=== PATIENT | female | born 1935 | race Caucasian/White ===

== ENCOUNTER 2022-08-01 08:43 | Outpatient (REF) | payer OTHER, MEDICARE, SELFPAY ==
--- NOTE | ~2022-08-01 | XR_ITS ---
EXAMINATION: Knee x-ray CLINICAL INFORMATION: Pain COMPARISON: None. TECHNIQUE: Standing AP view of both knees and lateral and sunrise view of the left knee FINDINGS: Left knee: Bone alignment is normal. No fracture or dislocation. There is arthritis at the patellofemoral and femoral tibial joints with joint space narrowing and osteophyte formation. There is slight lateral subluxation of patella sunrise view. There is a osteophyte at the quadriceps tendon insertion to the patella. There is a moderate joint effusion. There may be ossified intra-articular loose bodies. Standing AP view of the right knee demonstrate a right knee replacement in satisfactory position. XR/XR knee standing BI IMPRESSION: Left knee: Tricompartment arthritis, moderate joint effusion and question ossified intra-articular loose bodies. Satisfactory appearance of right knee replacement.
--- NOTE | ~2022-08-01 | XR_ITS ---
EXAMINATION: Knee x-ray CLINICAL INFORMATION: Pain COMPARISON: None. TECHNIQUE: Standing AP view of both knees and lateral and sunrise view of the left knee FINDINGS: Left knee: Bone alignment is normal. No fracture or dislocation. There is arthritis at the patellofemoral and femoral tibial joints with joint space narrowing and osteophyte formation. There is slight lateral subluxation of patella sunrise view. There is a osteophyte at the quadriceps tendon insertion to the patella. There is a moderate joint effusion. There may be ossified intra-articular loose bodies. Standing AP view of the right knee demonstrate a right knee replacement in satisfactory position. XR/XR knee LT 2V IMPRESSION: Left knee: Tricompartment arthritis, moderate joint effusion and question ossified intra-articular loose bodies. Satisfactory appearance of right knee replacement.
== END 2022-08-01 08:44 | disposition home or self-care (01) ==
LOC: HO.HOSX 08:43
PROVIDERS: Visit Provider Physician Assistant
DX: M17.12 Unilateral primary osteoarthritis, left knee (principal)
CPT/HCPCS: 73560; 73565

== ENCOUNTER → 2022-09-03 11:27 | Outpatient (BNVA) | payer MEDICARE, OTHER, SELFPAY | PROVIDERS: Visit Provider Orthopaedic Surgery | DX: M17.12 Unilateral primary osteoarthritis, left knee (principal); M25.562 Pain in left knee; M25.561 Pain in right knee | CPT/HCPCS: 99212 ==

== ENCOUNTER 2023-04-03 13:22 | Outpatient (AMB) | payer OTHER, SELFPAY ==
--- NOTE | 2023-04-03 13:23 | MHC.OFFVIS ---
Intake Vital Signs 04/03/23 13:23 Height 5 ft 5 in Weight 180 lb BMI 30.0 Intake Visit Reasons: OV-left knee pain-follow up Intake Note: The patient presents with complaints of intermittent discomfort in both of her knees. She did undergo right total knee replacement surgery in the past. She denies any fevers or chills. She continues to ride the stationary bike at the gym 2 times per week for approximately 30 minutes each time. She does not take any medicines for her discomfort. She would like to hold off on left total knee replacement surgery for as long as possible. Allergies No Known Allergies Allergy (Verified 04/03/23 13:30) Medication List - Last Reviewed 04/03/23 by Estephanie Green CMA diclofenac sodium mg PO PFS Surgical History History of carpal tunnel release History of total right knee replacement Social History Alcohol intake: never Patient Tobacco Use Status: Never used Tobacco Current occupational status: retired Physical Exam Vital Signs: BMI result Body Mass Index 30.0 Const Other: Well-nourished well-developed very friendly female awake alert and oriented x3 in no acute distress Extrem Other: Bilateral lower extremity examination shows good capillary refill, no skin lesions noted, normal sensation light touch Right knee examination shows that the surgical incision is well healed, no erythema, full active extension and flexion to 120 degrees, her patella tracks well Left knee examination shows a minimal effusion, mild crepitus with range of motion, mild discomfort with range of motion, no instability Results Reviewed Results Reviewed: X-rays of the patient's left knee show joint space narrowing, subchondral sclerosis, osteophyte formation, no acute bony abnormalities Assessment & Plan Assessment & Plan (1) Osteoarthritis of left knee: Code(s): M17.12 - Unilateral primary osteoarthritis, left knee Plan Ms. Ji continues to do well after undergoing right total knee replacement surgery. She does have intermittent discomfort in her left knee due to degenerative joint disease. I had a lengthy discussion with the patient regarding the treatment options. At this point the patient's left knee discomfort is tolerable to her. She will continue with her exercise program. She does know to take antibiotics before any dental work. She will contact me prior to her annual follow-up appointment should any questions or concerns arise. Feel free to call me at any time should questions regarding her orthopedic management arise. I spent 22 minutes in reviewing the patient's records and imaging studies, seeing the patient and documenting in the medical record. Coding Level of Care Code Est Pt Level 2 (22852) Diagnoses Osteoarthritis of left knee M17.12
== END 2023-04-03 13:45 | disposition home or self-care (01) ==
PROVIDERS: Visit Provider Orthopaedic Surgery
DX: M17.12 Unilateral primary osteoarthritis, left knee (principal); Z96.651 Presence of right artificial knee joint
CPT/HCPCS: 99213

== ENCOUNTER → 2023-04-03 13:22 | Outpatient (BNVA) | payer OTHER, SELFPAY | PROVIDERS: Visit Provider Orthopaedic Surgery | DX: M17.12 Unilateral primary osteoarthritis, left knee (principal) | CPT/HCPCS: 99212 ==

== ENCOUNTER 2023-07-31 13:19 | Outpatient (AMB) | payer OTHER, SELFPAY ==
--- NOTE | 2023-07-31 13:20 | A.OFFVIS_ITS ---
Vital Signs 07/31/23 13:20 Height 5 ft 5 in Weight 180 lb BMI 30.0 Intake Visit Reasons: OV-left knee pain-follow up Intake Note: Gayle is a 87 year old female who presents for a Left knee follow up. The patient reports mild intermittent discomfort in her left knee. She denies any locking or giving way. She did undergo right total knee replacement surgery several years ago. She reports minimal discomfort in her right knee. She wishes to hold off on left total knee replacement surgery if possible. Allergies No Known Allergies Allergy (Verified 07/31/23 13:23) Medication List - Last Reconciled 08/01/23 by Dhruv Lewis MD diclofenac sodium mg PO [facility] Surgical History History of total right knee replacement History of carpal tunnel release Social History Alcohol intake: never Patient Tobacco Use Status: Never used Tobacco Current occupational status: retired Physical Exam Vital Signs: BMI result Body Mass Index 30.0 Const Other: Well-nourished well-developed very friendly female awake alert and oriented x3 in no acute distress Extrem Other: Bilateral lower extremity examination shows good capillary refill, no skin lesions noted, normal sensation light touch Left knee examination shows a minimal effusion, mild crepitus with range of motion, pain with range of motion, no instability Results Reviewed Results Reviewed: X-rays of the patient's left knee show joint space narrowing, subchondral sclerosis, no acute bony abnormalities Assessment & Plan Assessment & Plan (1) Osteoarthritis of left knee: Code(s): M17.12 - Unilateral primary osteoarthritis, left knee Category: Medical Plan Ms. Ji presents with left knee pain due to degenerative joint disease. I had a lengthy discussion with the patient regarding the treatment options. At this point the patient's symptoms are tolerable to her. We will hold off on an injection. She will continue with her home exercise program. She will follow up with me on an as-needed basis should her symptoms worsen in any way. I spent 18 minutes in reviewing the patient's records and imaging studies, seeing the patient and documenting in the medical record. Coding Level of Care Code Est Pt Level 2 (25280) Diagnoses Osteoarthritis of left knee M17.12
== END 2023-07-31 13:42 | disposition home or self-care (01) ==
PROVIDERS: Visit Provider Orthopaedic Surgery
DX: M17.12 Unilateral primary osteoarthritis, left knee (principal)
CPT/HCPCS: 99212

== ENCOUNTER → 2023-07-31 13:19 | Outpatient (BNVA) | payer OTHER, SELFPAY | PROVIDERS: Visit Provider Orthopaedic Surgery ==

== ENCOUNTER 2023-10-30 10:20 | Outpatient (REF) | payer MEDICARE, SELFPAY ==
--- NOTE | ~2023-10-30 | XR_ITS ---
EXAMINATION: XR KNEE, LEFT CLINICAL INFORMATION: Pain. COMPARISON: 08/01/2022 TECHNIQUE: Three views of the left knee. FINDINGS: Diffuse demineralization. Small joint effusion. Severe patellofemoral and lateral compartment degenerative changes with joint space narrowing and hypertrophic change. Moderate degenerative changes in the medial compartment. Possible intra-articular loose bodies. XR/XR knee LT 3V IMPRESSION: Severe degenerative changes. Electronically signed by: Sujata Umana MD 11/26/2023 01:39 PM EDT
--- NOTE | ~2023-10-30 | XR_ITS ---
EXAMINATION: XR KNEE, RIGHT CLINICAL INFORMATION: Pain COMPARISON: None available. TECHNIQUE: Three views of the right knee. FINDINGS: Status post right knee total arthroplasty. Joint effusion. Hardware appears intact. Bones are diffusely demineralized. XR/XR knee RT 3V IMPRESSION: Status post right total knee arthroplasty. Hardware appears intact. Electronically signed by: Sujata Umana MD 11/26/2023 02:15 PM EDT
== END 2023-10-30 10:21 | disposition home or self-care (01) ==
LOC: HO.HOSX 10:20
PROVIDERS: Visit Provider Orthopaedic Surgery
DX: M17.12 Unilateral primary osteoarthritis, left knee (principal); M25.561 Pain in right knee
CPT/HCPCS: 73562

== ENCOUNTER 2023-10-30 13:27 | Outpatient (AMB) | payer OTHER, SELFPAY ==
--- NOTE | 2023-10-30 13:53 | MHC.OFFVIS ---
Intake Visit Reasons: Bilateral knee pain Intake Note: Gayle is a 88 year old female who presents with complaints of intermittent discomfort in both of her knees. She did undergo right total knee replacement surgery several years ago. She denies any fevers or chills. She has taken Tylenol which gives her mild relief. She has had cortisone injections given into her left knee which gave her fairly good relief. The patient states that her left knee discomfort is tolerable to her at this point. Allergies No Known Allergies Allergy (Verified 10/30/23 13:53) Medication List - Last Reconciled 10/30/23 by Dhruv Lewis MD diclofenac sodium mg PO [facility] Surgical History History of total right knee replacement History of carpal tunnel release Social History Alcohol intake: never Patient Tobacco Use Status: Never used Tobacco Current occupational status: retired Physical Exam Const Other: Well-nourished well-developed very friendly female awake alert and oriented x3 in no acute distress Extrem Other: Right knee examination shows that the surgical incision is well healed, no erythema, full active extension and flexion to 120 degrees, her patella tracks well Left knee examination shows a minimal effusion, palpable crepitus with range of motion, pain with range of motion, no instability Results Reviewed Results Reviewed: X-rays of the patient's right knee taken today show a total knee arthroplasty in good position with no signs of loosening, no acute bony abnormalities X-rays of the patient's left knee taken today show moderate to severe joint space narrowing, subchondral sclerosis, no acute bony abnormalities Assessment & Plan Assessment & Plan (1) Right knee pain: Code(s): M25.561 - Pain in right knee Category: Medical (2) Bilateral knee pain: Code(s): M25.561 - Pain in right knee; M25.562 - Pain in left knee Category: Medical Plan Ms. Ji presents with left knee pain due to degenerative joint disease. At this point the patient's symptoms are tolerable to her. We will hold off on another cortisone injection. The patient does have continued discomfort after undergoing right total knee replacement surgery several years ago. Thus, I will arrange for her to have an evaluation by Dr. Jones here in our pain management department. She will contact me prior to her follow-up appointment in 3 months should her symptoms worsen in any way. Feel free to call me at any time should questions regarding her orthopedic management arise. I spent 21 minutes in reviewing the patient's records and imaging studies, seeing the patient and documenting in the medical record. Orders: Orders XR knee LT 3V Today M17.12 - Unilateral primary osteoarthritis, left knee XR knee RT 3V Today M25.561 - Pain in right knee Referrals Pain Management Referral M25.561 - Pain in right knee Coding Level of Care Code Est Pt Level 3 (81730) Diagnoses Right knee pain M25.561 Bilateral knee pain M25.561; M25.562
== END 2023-10-30 14:08 | disposition home or self-care (01) ==
PROVIDERS: Visit Provider Orthopaedic Surgery
DX: M25.561 Pain in right knee (principal); M25.562 Pain in left knee
CPT/HCPCS: 99213

== ENCOUNTER 2024-02-26 13:05 | Outpatient (AMB) | payer OTHER, SELFPAY ==
--- NOTE | 2024-02-26 13:08 | A.OFFVIS_ITS ---
Vital Signs 02/26/24 13:08 Height 5 ft 5 in Weight 180 lb BMI 30.0 Intake Visit Reasons: OV: left knee OA Intake Note: Gayle is a 88 year old female who presents with complaints of progressively worsening left knee pain. The patient did undergo right total knee replacement surgery several years ago. She denies any pain in her right knee. She describes her left knee pain as sharp and severe in nature, 10/10. Her left knee pain has gotten worse over the last few years in spite of continued non operative treatments. She has tried Tylenol and anti-inflammatory medicines which gave her minimal relief. She has also done physical therapy exercises which aggravated her pain. The patient has difficulty walking even short distances because of her pain. She has had injections in the past. The most recent injection gave her minimal relief. At this point the patient's left knee pain is interfering with her activities of daily living and her ability to sleep well through the night. Allergies No Known Allergies Allergy (Verified 02/26/24 13:09) Medication List - Last Reconciled 02/27/24 by Dhruv Lewis MD diclofenac sodium mg PO [facility] Surgical History History of total right knee replacement History of carpal tunnel release Social History Alcohol intake: never Patient Tobacco Use Status: Never used Tobacco Current occupational status: retired Physical Exam Vital Signs: BMI result Body Mass Index 30.0 Const Other: Well-nourished well-developed very friendly female awake alert and oriented x3 in no acute distress Extrem Other: Bilateral lower extremity examination shows good capillary refill, no skin lesions noted, normal sensation light touch Left knee examination shows a minimal effusion, palpable crepitus with range of motion, pain with range of motion, range of motion from -3 degrees to 115 degrees, no instability Results Reviewed Results Reviewed: X-rays of the patient's left knee taken previously show joint space narrowing, subchondral sclerosis, osteophyte formation, no acute bony abnormalities Assessment & Plan Assessment & Plan (1) Osteoarthritis of left knee: Code(s): M17.12 - Unilateral primary osteoarthritis, left knee Category: Medical Plan Ms. Ji presents with progressively worsening left knee pain due to end-stage degenerative joint disease. I had a lengthy discussion with the patient regarding the treatment options. At this point she has failed continued non operative treatments. The risks and benefits of left total knee replacement surgery were discussed at length with the patient. The patient wishes to proceed with surgery next year. She will contact my office to pick a surgery date. I will see her back prior to her surgery to answer any final questions that she might have. She will call me prior that time should any questions or concerns arise. I spent 22 minutes in reviewing the patient's records and imaging studies, seeing the patient and documenting in the medical record. Coding Level of Care Code Est Pt Level 3 (71164) Complex EM visit Add On G2211 Diagnoses Osteoarthritis of left knee M17.12
--- OUTSIDE RECORDS SUMMARY | 2024-02-26 13:09 | XMS_ITS ---
Author Name [facility] Organization Unknown History of Medication Use Medication Directions Dispensed Refills Start Date End Date Stat Multiple Vitamins-Minerals (PreserVision AREDS) Cap Take 1 capsule by mouth. 11/19/2023 active cyanocobalamin (VITAMIN B-12) 1000 MCG tablet Take 1,000 mcg by mouth. 11/19/2023 active nirmatrelvir-ritonavi r (PAXLOVID) therapy pack Take two 150 mg tablets of nirmatrelvir and one 100 mg tablet of ritonavir twice daily for 5 days. Dispense #20 Nirmatrelvir 150 mg Tablets and #10 Ritonavir 100 mg tablets. 11/19/2023 active diclofenac enteric coated (VOLTAREN) 75 MG EC tablet Take 75 mg by mouth. 11/19/2023 active Sodium Fluoride 5000 Sensitive 1.1-5 % Gel USE AT BEDTIME IN PLACE OR REGULAR PASTE 11/19/2023 active Problems Problem Status Onset Date Problem Type Date of Resoluti on Source Cough, unspecified type active EncounterDiagnosisAct CCT COVID active EncounterDiagnosisAct CCT
--- OUTSIDE RECORDS SUMMARY | 2024-02-26 13:09 | XMS_ITS | Clinical Summary ---
Author Organization Unknown Care Team Providers Care Traffic Incident Management Manager Name Role Phone TONY SANTANA, BUSHRA Unavailable Unavailable RAHEEL OT, THERAPY WHITE WASHER PILER, JUDITH IRWIN RN, DONNY Unavailable Unavailable Payers Payer Name Policy Type Policy Number Effective Date Expira tion Date MEDICARE - [facility] - PDGM [id number] Problems Condition Name Condition Details Condition Category Status Onset Date Resolution Date Last Treatment Date Treating Clinician Comments AFTERCARE FOLLOWING JOINT REPLACEMENT SURGERY Active 2021-03 00:00: 00 LONG-TERM (CURRENT) USE OF ASPIRIN Active 2021-03 00:00: 00 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 Ordering Clinician Indication Dosage Frequency Signature (SIG) Comments Components oxycodone 5 mg tablet 2021-03 00:00: 00 Yes [id number] 1 tablet NEEDED 1 tablet NEEDED (route: oral) Med Classific ation: Analgesic , Anti-infl ammatory or Antipyret ic diclofenac sodium 75 mg tablet,priya yed release 2021-03 00:00: 00 Yes [id number] Per instruc tions EVERY DAY Per instructio ns EVERY DAY (route: oral) Med Classific ation: Analgesic , Anti-infl ammatory or Antipyret ic aspirin 81 mg tablet,priya yed release 2021-03 00:00: 00 Yes [id number] 1 tablet DAILY 1 tablet DAILY (route: oral) Med Classific ation: Hematolog ical Agents Tylenol Extra Strength 500 mg tablet 2021-0308 00:00: 00 Yes [id number] 2 tablet NEEDED 2 tablet NEEDED (route: oral) Med Classific ation: Analgesic , Anti-infl ammatory or Antipyret ic Vital Signs Vital Name Observation Time Observation Value Commen ts Temperature 2022-03-07 09:14:00.000 98.1 [degF] Temperature 2022-03-05 09:36:00.000 97.8 [degF] Temperature 2022-03-01 09:24:00.000 97.6 [degF] Temperature 2022-03-01 09:14:00.000 97.6 [degF] Temperature 2022-02-27 14:08:00.000 97.7 [degF] Temperature 2022-02-26 09:35:00.000 98.7 [degF] Temperature 2022-02-21 10:59:00.000 97.1 [degF] BMI (%) 2022-02-21 10:59:00.000 30 kg/m2 Height 2022-02-21 10:59:00.000 64 [in_us] Pulse 2022-03-07 09:14:00.000 70 /min Pulse 2022-03-05 09:36:00.000 86 /min Pulse 2022-03-01 09:24:00.000 76 /min Pulse 2022-03-01 09:14:00.000 76 /min Pulse 2022-02-27 14:08:00.000 80 /min Pulse 2022-02-26 09:35:00.000 74 /min Pulse 2022-02-21 10:59:00.000 72 /min O2 Saturation (%) 2022-03-07 09:14:00.000 98 % O2 Saturation (%) 2022-03-01 09:14:00.000 97 % O2 Saturation (%) 2022-02-27 14:08:00.000 97 % O2 Saturation (%) 2022-02-21 10:59:00.000 99 % Respirations 2022-03-07 09:14:00.000 18 /min Respirations 2022-03-05 09:36:00.000 18 /min Respirations 2022-03-01 09:24:00.000 18 /min Respirations 2022-03-01 09:14:00.000 18 /min Respirations 2022-02-27 14:08:00.000 18 /min Respirations 2022-02-26 09:35:00.000 18 /min Respirations 2022-02-21 10:59:00.000 18 /min Weight (lbs) 2022-02-21 10:59:00.000 175 [lb_av] Systolic Blood Pressure 2022-03-07 09:14:00.000 132 mm [Hg] Systolic Blood Pressure 2022-03-05 09:36:00.000 131 mm [Hg] Systolic Blood Pressure 2022-03-01 09:24:00.000 120 mm [Hg] Systolic Blood Pressure 2022-03-01 09:14:00.000 124 mm [Hg] Systolic Blood Pressure 2022-02-27 14:08:00.000 122 mm [Hg] Systolic Blood Pressure 2022-02-26 09:35:00.000 129 mm [Hg] Systolic Blood Pressure 2022-02-21 10:59:00.000 132 mm [Hg] Diastolic Blood Pressure 2022-03-07 09:14:00.000 74 mm [Hg] Diastolic Blood Pressure 2022-03-05 09:36:00.000 75 mm [Hg] Diastolic Blood Pressure 2022-03-01 09:24:00.000 68 mm [Hg] Diastolic Blood Pressure 2022-03-01 09:14:00.000 68 mm [Hg] Diastolic Blood Pressure 2022-02-27 14:08:00.000 68 mm [Hg] Diastolic Blood Pressure 2022-02-26 09:35:00.000 70 mm [Hg] Diastolic Blood Pressure 2022-02-21 10:59:00.000 78 mm [Hg] Plan of Treatment Planned Activity Planned Date Details Comments Future Scheduled Test SKILLED NU RSE TO EVALUATE PATIENT, IDENTIFY PRIMARY AND CO-MORBID CONDITIONS CODED PER CODING GUIDELINES, AND DEVELOP PATIENT SPECIFIC PLAN OF CARE THAT INCLUDES PATIENT GOAL FOR HOME HEALTH. CLINICAL SUMMARY (SOC/PARAG/RECERT, 10 DAY, 60 DAY) THE PATIENT IS RECEIVING HOMECARE DUE TO REFERRAL FROM [facility] RECENT HOSPITALIZATION/INPATIENT ADMISSION RELATED TO: LEFT SHOULDER REPLACEMENT NEW OR CHANGED MEDICATIONS: NEW- ASPIRIN PATIENT LIVING SITUATION/CAREGIVER STATUS: LIVES WITH SUPPORTIVE , WHO IS PCG RECENT FALLS: NONE SUMMARIZE SKILLED NEED: SN FOR CVP ASSESSMENT, SKIN INTEGRITY, WOUND CARE, MEDICATION EDUCATION ADDITIONAL DISCIPLINES NEEDED OR DECLINED ORDERED SERVICES: OCCUPATIONAL THERAPY FOR UPPER BODY STRENGTHENING AND HOME SAFETY [code = SKILLED NURSE TO EVALUATE PATIENT, IDENTIFY PRIMARY AND CO-MORBID CONDITIONS CODED PER CODING GUIDELINES, AND DEVELOP PATIENT SPECIFIC PLAN OF CARE THAT INCLUDES PATIENT GOAL FOR HOME HEALTH. CLINICAL SUMMARY (SOC/PARAG/RECERT, 10 DAY, 60 DAY) THE PATIENT IS RECEIVING HOMECARE DUE TO REFERRAL FROM [facility] RECENT HOSPITALIZATION/INPATIENT ADMISSION RELATED TO: LEFT SHOULDER REPLACEMENT NEW OR CHANGED MEDICATIONS: NEW- ASPIRIN PATIENT LIVING SITUATION/CAREGIVER STATUS: LIVES WITH SUPPORTIVE , WHO IS PCG RECENT FALLS: NONE SUMMARIZE SKILLED NEED: SN FOR CVP ASSESSMENT, SKIN INTEGRITY, WOUND CARE, MEDICATION EDUCATION ADDITIONAL DISCIPLINES NEEDED OR DECLINED ORDERED SERVICES: OCCUPATIONAL THERAPY FOR UPPER BODY STRENGTHENING AND HOME SAFETY ] Future Scheduled Test SKILLED NU RSE TO REVIEW PATIENT MEDICATIONS. INSTRUCT PATIENT/CAREGIVER ON MONITORING OF EFFECTIVENESS, ADVERSE DRUG REACTIONS, SIDE EFFECTS OF ALL MEDICATIONS (PRESCRIPTION/-OTC), AND HOW AND WHEN TO REPORT PROBLEMS. [code = SKILLED NURSE TO REVIEW PATIENT MEDICATIONS. INSTRUCT PATIENT/CAREGIVER ON MONITORING OF EFFECTIVENESS, ADVERSE DRUG REACTIONS, SIDE EFFECTS OF ALL MEDICATIONS (PRESCRIPTION/-OTC), AND HOW AND WHEN TO REPORT PROBLEMS.] Future Scheduled Test SKILLED NU RSE TO PERFORM HOME SAFETY AND FALL ASSESSMENT AND PROVIDE INSTRUCTION TO IMPLEMENT HOME SAFETY AND FALL PREVENTION STRATEGIES. [code = SKILLED NURSE TO PERFORM HOME SAFETY AND FALL ASSESSMENT AND PROVIDE INSTRUCTION TO IMPLEMENT HOME SAFETY AND FALL PREVENTION STRATEGIES.] Future Scheduled Test SKILLED NU RSE FOR INSTRUCTION/ REINFORCEMENT OF NEEDS RELATED TO NUTRITION/HYDRATION. [code = SKILLED NURSE FOR INSTRUCTION/ REINFORCEMENT OF NEEDS RELATED TO NUTRITION/HYDRATION. ] Future Scheduled Test SKILLED NU RSE TO INSTRUCT PATIENT/CAREGIVER ON AFTERCARE FOLLOWING LEFT SHOULDER JOINT REPLACEMENT, INCLUDING PRECAUTIONS, SIGNS AND SYMPTOMS OF POST-OP COMPLICATIONS, PAIN MANAGEMENT TECHNIQUES, AND INCISION SITE CARE. [code = SKILLED NURSE TO INSTRUCT PATIENT/CAREGIVER ON AFTERCARE FOLLOWING LEFT SHOULDER JOINT REPLACEMENT, INCLUDING PRECAUTIONS, SIGNS AND SYMPTOMS OF POST-OP COMPLICATIONS, PAIN MANAGEMENT TECHNIQUES, AND INCISION SITE CARE.] Future Scheduled Test PATIENT TRONCOSO S A RISK OF REHOSPITALIZATION. SKILLED NURSE TO ESTABLISH SUPPORT MEASURES TO MINIMIZE RISK OF REHOSPITALIZATION, AND INSTRUCT PATIENT/CAREGIVER ON METHODS TO REDUCE AVOIDABLE HOSPITALIZATION. [code = PATIENT HAS A RISK OF REHOSPITALIZATION. SKILLED NURSE TO ESTABLISH SUPPORT MEASURES TO MINIMIZE RISK OF REHOSPITALIZATION, AND INSTRUCT PATIENT/CAREGIVER ON METHODS TO REDUCE AVOIDABLE HOSPITALIZATION.] Future Scheduled Test SKILLED NU RSE TO PROVIDE INSTRUCTION TO PATIENT/CAREGIVER RELATED TO DISCHARGE PLANNING. [code = SKILLED NURSE TO PROVIDE INSTRUCTION TO PATIENT/CAREGIVER RELATED TO DISCHARGE PLANNING.] Future Scheduled Test SKILLED NU RSE FOR OBSERVATION AND ASSESSMENT OF PATIENTS PAIN LEVEL AND EFFECTIVENESS OF PAIN MANAGEMENT REGIMEN. SKILLED NURSE TO INSTRUCT PATIENT/CAREGIVER REGARDING PHARMACOLOGIC AND NON-PHARMACOLOGIC PAIN CONTROL MEASURES. SKILLED NURSE TO REPORT TO PHYSICIAN IF PAIN IS UNCONTROLLED WITH CURRENT PAIN MANAGEMENT REGIMEN. [code = SKILLED NURSE FOR OBSERVATION AND ASSESSMENT OF PATIENTS PAIN LEVEL AND EFFECTIVENESS OF PAIN MANAGEMENT REGIMEN. SKILLED NURSE TO INSTRUCT PATIENT/CAREGIVER REGARDING PHARMACOLOGIC AND NON-PHARMACOLOGIC PAIN CONTROL MEASURES. SKILLED NURSE TO REPORT TO PHYSICIAN IF PAIN IS UNCONTROLLED WITH CURRENT PAIN MANAGEMENT REGIMEN.] Future Scheduled Test OCCUPATION AL THERAPIST TO EVALUATE PATIENT FOR UPPER BODY STRENGTHENING AND HOME SAFETY. [code = OCCUPATIONAL THERAPIST TO EVALUATE PATIENT FOR UPPER BODY STRENGTHENING AND HOME SAFETY. ] Future Scheduled Test SKILLED NU RSE FOR O/A RELATED TO SIGNS AND SYMPTOMS OF INFECTION AND TO PROVIDE TEACHING REGARDING INFECTION CONTROL MEASURES. [code = SKILLED NURSE FOR O/A RELATED TO SIGNS AND SYMPTOMS OF INFECTION AND TO PROVIDE TEACHING REGARDING INFECTION CONTROL MEASURES.] Future Scheduled Test NEED FOR S KILLED TEACHING AND INTERVENTION RELATED TO SURGICAL INCISION TO LEFT SHOULDER. REMOVE DRESSING 7 DAYS FOLLOWING SURGICAL PROCEDURE (DUE 02/26) AND KEEP OXIDIZED FINISH PLATER. SN TO ASSESS SITE AT EACH VISIT AND REPORT TO MD WITH ANY S/S OF INFECTION. DISCONTINUE WOUND CARE ONCE WOUND IS HEALED. [code = NEED FOR SKILLED TEACHING AND INTERVENTION RELATED TO SURGICAL INCISION TO LEFT SHOULDER. REMOVE DRESSING 7 DAYS FOLLOWING SURGICAL PROCEDURE (DUE 02/26) AND KEEP TA. SN TO ASSESS SITE AT EACH VISIT AND REPORT TO MD WITH ANY S/S OF INFECTION. DISCONTINUE WOUND CARE ONCE WOUND IS HEALED.] Future Scheduled Test SKILLED NU RSE FOR O/A OF SELF-CARE DEFICITS AND TO PROVIDE TEACHING RELATED TO SAFE PROVISION OF ADLS. [code = SKILLED NURSE FOR O/A OF SELF-CARE DEFICITS AND TO PROVIDE TEACHING RELATED TO SAFE PROVISION OF ADLS.] Future Scheduled Test SKILLED NU RSE FOR O/A OF MUSCULOSKELETAL STATUS AND TEACHING ON MEASURES TO MANAGE OSTEOARTHRITIS AND TO MAINTAIN SAFETY WITH ACTIVITY [code = SKILLED NURSE FOR O/A OF MUSCULOSKELETAL STATUS AND TEACHING ON MEASURES TO MANAGE OSTEOARTHRITIS AND TO MAINTAIN SAFETY WITH ACTIVITY ] Future Scheduled Test SKILLED NU RSE TO ASSESS PATIENT'S SKIN INTEGRITY AND INSTRUCT PATIENT/CAREGIVER ON MEASURES TO PREVENT PRESSURE ULCERS [code = SKILLED NURSE TO ASSESS PATIENT'S SKIN INTEGRITY AND INSTRUCT PATIENT/CAREGIVER ON MEASURES TO PREVENT PRESSURE ULCERS] Future Scheduled Test SKILLED NU RSE FOR O/A AND SKILLED TEACHING RELATED TO SIGNS AND SYMPTOMS AND MANAGEMENT OF REVERSE LEFT SHOULDER REPLACEMENT [code = SKILLED NURSE FOR O/A AND SKILLED TEACHING RELATED TO SIGNS AND SYMPTOMS AND MANAGEMENT OF REVERSE LEFT SHOULDER REPLACEMENT] Future Scheduled Test OCCUPATION AL THERAPIST TO EVALUATE PATIENT SECONDARY TO FUNCTIONAL DEFICITS/SAFETY CONCERNS IDENTIFIED DURING EVALUATION OCCUPATIONAL THERAPY TO ESTABLISH THERAPEUTIC EXERCISE PROGRAM AND INSTRUCT PATIENT/CAREGIVER ON EXERCISE PRECAUTIONS WITH WRITTEN HOME PROGRAM. MAY INCLUDE PROM, AAROM, AROM APPROPRIATE TO IMPROVE POST OP OUTCOMES. OCCUPATIONAL THERAPY TO ASSESS AND RECOMMEND HOME SAFETY ADAPTATIONS AND EDUCATE PATIENT /CAREGIVER ON FALL PREVENTION STRATEGIES TO ENHANCE PARTICIPATION IN ADLS. OCCUPATIONAL THERAPY TO RECOMMEND ORTHOTICS/SPLINTING FOR PAIN RELIEF, MAINTAINING JOINT ALIGNMENT, PROTECTION OF JOINT INTEGRITY, AND IMPROVED FUNCTION. OCCUPATIONAL THERAPY TO PROVIDE PATIENT/CAREGIVER WITH INSTRUCTIONS AND RECOMMENDATIONS TO IMPROVE ADLS INCLUDING BATHING AND DRESSING WHILE USING APPROPRIATE ADAPTIVE DEVICES RECOMMENDED. SUMMARY OF THERAPY EVAL/ASSESSMENT FINDINGS AND REASON(S) SKILLS OF A THERAPIST ARE INDICATED: PT TO BENEFIT FROM SKILLED OT SERVICES TO TRAIN PT ON POST OP HEP PROTOCOL PER MD RECOMMENDATION, ADL TRAINING, FALL PREVENTION, AND TRAINING ON WEAR SCHEDULE AND APPLICATION OF POST OP ABDUCTOR SLING TO MAINTAIN PROPER POSITIONING AND TO CONTROL PAIN. [code = OCCUPATIONAL THERAPIST TO EVALUATE PATIENT SECONDARY TO FUNCTIONAL DEFICITS/SAFETY CONCERNS IDENTIFIED DURING EVALUATION OCCUPATIONAL THERAPY TO ESTABLISH THERAPEUTIC EXERCISE PROGRAM AND INSTRUCT PATIENT/CAREGIVER ON EXERCISE PRECAUTIONS WITH WRITTEN HOME PROGRAM. MAY INCLUDE PROM, AAROM, AROM APPROPRIATE TO IMPROVE POST OP OUTCOMES. OCCUPATIONAL THERAPY TO ASSESS AND RECOMMEND HOME SAFETY ADAPTATIONS AND EDUCATE PATIENT /CAREGIVER ON FALL PREVENTION STRATEGIES TO ENHANCE PARTICIPATION IN ADLS. OCCUPATIONAL THERAPY TO RECOMMEND ORTHOTICS/SPLINTING FOR PAIN RELIEF, MAINTAINING JOINT ALIGNMENT, PROTECTION OF JOINT INTEGRITY, AND IMPROVED FUNCTION. OCCUPATIONAL THERAPY TO PROVIDE PATIENT/CAREGIVER WITH INSTRUCTIONS AND RECOMMENDATIONS TO IMPROVE ADLS INCLUDING BATHING AND DRESSING WHILE USING APPROPRIATE ADAPTIVE DEVICES RECOMMENDED. SUMMARY OF THERAPY EVAL/ASSESSMENT FINDINGS AND REASON(S) SKILLS OF A THERAPIST ARE INDICATED: PT TO BENEFIT FROM SKILLED OT SERVICES TO TRAIN PT ON POST OP HEP PROTOCOL PER MD RECOMMENDATION, ADL TRAINING, FALL PREVENTION, AND TRAINING ON WEAR SCHEDULE AND APPLICATION OF POST OP ABDUCTOR SLING TO MAINTAIN PROPER POSITIONING AND TO CONTROL PAIN. ] Goal 2022-03-07 Patient Goal - REMAIN FREE F ROM INFECTION Goal Provider Goal - A PLAN OF CARE WILL BE ESTABLISHED THAT MEETS PATIENT'S FDC NEEDS AND INCLUDES PATIENT GOAL FOR HOME HEALTH. Goal Provider Goal - PATIENT/CAREGIVER WILL VERBALIZE UNDERSTANDING OF EDUCATION PROVIDED ON MEDICATIONS BY THE END OF THE CERTIFICATION PERIOD. Goal Provider Goal - PATIENT/CAREGIVER WILL VERBALIZE/DEMONSTRATE EFFECTIVE HOME SAFETY AND FALL PREVENTION STRATEGIES THROUGHOUT CERTIFICATION PERIOD. Goal Provider Goal - PATIENT/CAREGIVER WILL DEMONSTRATE ABILITY TO SELF MANAGE NEEDS RELATED TO NUTRITION/HYDRATION BY 04/21/22. Goal Provider Goal - PATIENT/CAREGIVER WILL VERBALIZE/DEMONSTRATE MANAGEMENT OF AFTERCARE FOLLOWING JOINT REPLACEMENT INCLUDING SIGNS AND SYMPTOMS TO REPORT AND METHODS TO PREVENT POST-OP COMPLICATIONS BY END OF CERTIFICATION PERIOD. Goal Provider Goal - PATIENT WILL HAVE SUPPORT MEASURES ESTABLISHED TO PREVENT REHOSPITALIZATION AND PATIENT/CAREGIVER WILL VERBALIZE/DEMONSTRATE METHODS TO REDUCE AVOIDABLE HOSPITALIZATION BY 04/21/22 Goal Provider Goal - PATIENT/CAREGIVER WILL VERBALIZE UNDERSTANDING OF DISCHARGE PLANNING INSTRUCTIONS BY DATE OF DISCHARGE. Goal Provider Goal - PATIENT/CAREGIVER WILL DEMONSTRATE UNDERSTANDING OF PHARMACOLOGIC AND NONPHARMACOLOGIC PAIN CONTROL MEASURES AND PATIENT WILL HAVE IMPROVEMENT IN PAIN INTERFERING WITH ACTIVITY EVIDENCED BY PAIN CONTROLLED AT LEVEL OF PATIENT GOAL ON 7/10 PAIN SCALE OR LESS BY END OF CERTIFICATION PERIOD. Goal Provider Goal - OCCUPATIONAL THERAPY EVALUATION TO BE COMPLETED WITH RECOMMENDATIONS AND WRITTEN PLAN OF TREATMENT ESTABLISHED FOR THE PHYSICIANS SIGNATURE. Goal Provider Goal - PATIENT/CAREGIVER WILL VERBALIZE/DEMONSTRATE INFECTION CONTROL MEASURES AND SIGNS AND SYMPTOMS OF INFECTION WILL BE IDENTIFIED AND PHYSICIAN NOTIFIED FOR PROMPT INTERVENTION THROUGHOUT THE CERTIFICATION PERIOD. Goal Provider Goal - WOUND CARE WILL BE COMPLETED AND PATIENT WILL HAVE IMPROVED WOUND STATUS EVIDENCED BY NO SIGNS AND SYMPTOMS OF INFECTION, DECREASED WOUND SIZE, AND/OR NO COMPLICATIONS BY THE END OF THE CERTIFICATION PERIOD. Goal Provider Goal - PATIENT/CAREGIVER WILL VERBALIZE/DEMONSTRATE UNDERSTANDING OF SAFE PROVISION OF ADLS BY THE END OF THE CERTIFICATION PERIOD. Goal Provider Goal - PATIENT/CAREGIVER WILL VERBALIZE/DEMONSTRATE ABILITY TO MANAGE MUSCULOSKELETAL DISEASE WHILE MAINTAINING SAFETY BY 04/21/22. Goal Provider Goal - PATIENT/CAREGIVER WILL VERBALIZE UNDERSTANDING OF PRESSURE ULCER PREVENTION BY 04/21/22 Goal Provider Goal - PATIENT/CAREGIVER WILL VERBALIZE UNDERSTANDING OF MUSCULOSKELETAL DISEASE INCLUDING SIGNS AND SYMPTOMS, MANAGEMENT, AND PRESCRIBED TREATMENT REGIMEN BY END OF EPISODE. Goal Provider Goal - OCCUPATIONAL THERAPIST TO EVALUATE PATIENT SECONDARY TO FUNCTIONAL DEFICITS/SAFETY CONCERNS IDENTIFIED DURING EVALUATION. PATIENT/CAREGIVER WILL PERFORM THERAPEUTIC EXERCISES AND DEMONSTRATE PARTICIPATION IN A HOME PROGRAM ACCORDING TO POST OP PROTOCOL IN ORDER TO DECREASE PAIN AND PREVENT FROZEN SHOULDER. CAREGIVER/PATIENT WILL DEMONSTRATE/VERBALIZE UNDERSTANDING OF RECOMMENDATIONS TO INCREASE SAFETY IN THE HOME AND FALL PREVENTION IN ORDER TO PREVENT INJURY AND REHOSPITALIZATION. PATIENT/CAREGIVER WILL DEMONSTRATE PROPER APPLICATION AND WEARING OF ORTHOTICS/SPLINT TO IMPROVE PAIN MANAGEMENT AND JOINT SUPPORT POST OPERATIVELY. PATIENT/CAREGIVER WILL DEMONSTRATE IMPROVED ABILITY TO PERFORM ACTIVITIES OF DAILY LIVING TO IMPROVE ADL STATUS EVIDENCED BY INCREASED SCORE ON MERNA INDEX. Reason for Visit MINIMUM ASSIST WITH TRANSFER/AMBULATION/ADLS Encounters Start Date/Time End Date/Time Encounter Type Admission Type Attending [facility] Care Department Encounter ID Discharge Date Discharge Status Discharge Condition Discharge Reason Percent Goals Met 2022-02-21 00:00:00 2022-03-07 00:00:00 Outpatient NEW ADMISSION DONNY IRWIN [facility] [id number] 00:00:00 DISCHARGE TO HOME OR SELF CARE MINIMUM ASSIST WITH TRANSFER/A MBULATION/ ADLS GOALS MET ( ONLY) 51.85
== END 2024-02-26 13:26 | disposition home or self-care (01) ==
PROVIDERS: Visit Provider Orthopaedic Surgery
DX: M17.12 Unilateral primary osteoarthritis, left knee (principal)
CPT/HCPCS: 99213; G2211

== ENCOUNTER → 2024-02-26 13:05 | Outpatient (BNVA) | payer OTHER, SELFPAY | PROVIDERS: Visit Provider Orthopaedic Surgery ==

== ENCOUNTER → 2024-06-07 08:52 | Outpatient (BNVA) | payer OTHER, SELFPAY | PROVIDERS: PCP Family Medicine | DX: Z01.818 Encounter for other preprocedural examination (principal) ==

== ENCOUNTER 2024-07-07 09:40 | Outpatient (AMB) | payer OTHER, SELFPAY ==
--- NOTE | 2024-07-07 09:54 | MHC.OFFVIS ---
Vital Signs 07/07/24 09:57 Height 5 ft 5 in Weight 180 lb BMI 30.0 Intake Visit Reasons: Left knee pain Intake Note: Gayle is an 88 year old female who presents with complaints of progressively worsening left knee pain. The patient did undergo right total knee replacement surgery several years ago. She denies any pain in her right knee. She did go to inpatient rehabilitation following her right total knee replacement surgery and did well. She describes her left knee pain as sharp and severe in nature. Her left knee pain has gotten worse over the last few years in spite of continued non operative treatments. She has done physical therapy exercises which aggravated her pain. She has also tried Tylenol, anti-inflammatory medicines and topical gels which gave her minimal relief. She has had multiple injections. The most recent injection gave her no relief. At this point her left knee pain is interfering with her activities of daily living and her ability to sleep well through the night. The patient has difficulty walking even short distances because of her pain. She does walk with a cane. Allergies No Known Allergies Allergy (Verified 07/07/24 09:59) Medication List - Last Reconciled 07/07/24 by Dhruv Lewis MD acetaminophen 1,000 mg PO QID PRN amoxicillin 1,000 mg PO ONCE calcium carbonate-vitamin D3 600 mg-5 mcg (200 unit) 1 tab PO BID walker Folding front wheeled walker [facility] Medical History History of MRSA infection Heartburn Pre-diabetes Osteopenia Nonexudative age-related macular degeneration DJD (degenerative joint disease) Female bladder prolapse Arthritis Surgical History Hx of eye surgery Hx of tonsillectomy Hx of left cataract extraction History of esophagogastroduodenoscopy (EGD) H/O colonoscopy Hx of breast biopsy Hx of shoulder surgery History of total right knee replacement History of carpal tunnel release Social History Are you a primary caregivers homecare to a significant other at home: No Do you presently have visiting nurse or other home services: No Alcohol intake: never Comment: advised of trip hazard Patient Tobacco Use Status: Former Tobacco user Tobacco use type: Cigarette Years Smoked: 10 Current occupational status: retired Physical Exam Vital Signs: BMI result Body Mass Index 30.0 Const Other: Well-nourished well-developed very friendly female awake alert and oriented x3 in no acute distress Extrem Other: Bilateral lower extremity examination shows good capillary refill, no skin lesions noted, normal sensation light touch Left knee examination shows a minimal effusion, palpable crepitus with range of motion, pain with range of motion, range of motion from -3 degrees to 115 degrees, no instability Results Reviewed Results Reviewed: X-rays of the patient's left knee show end-stage degenerative joint disease with grade 4 [id number]-wu-[id number] arthritis, subchondral sclerosis, osteophyte formation, no acute bony abnormalities Assessment & Plan Assessment & Plan (1) Left knee pain: Code(s): M25.562 - Pain in left knee (2) Osteoarthritis of left knee: Code(s): M17.12 - Unilateral primary osteoarthritis, left knee Category: Medical Plan Ms. Ji presents with progressively worsening left knee pain due to end-stage degenerative joint disease. I had a lengthy discussion with the patient regarding the treatment options. At this point she has failed continued non operative treatments. The risks and benefits of left total knee replacement surgery were discussed at length with the patient. The patient wishes to proceed with surgery. dining services director will be consulted following her surgery for inpatient rehabilitation at the [facility]. The patient did go to inpatient rehabilitation following her right total knee replacement surgery several years ago and did quite well. I do feel that the patient will benefit from going to inpatient rehabilitation once again because of her age and medical comorbidities such as macular degeneration. The patient will follow up as instructed. Feel free to call me at any time should questions regarding her orthopedic management arise. I spent 22 minutes in reviewing the patient's records and imaging studies, seeing the patient and documenting in the medical record. Coding Level of Care Code Est Pt Level 3 (94860) Complex EM visit Add On G2211 Diagnoses Left knee pain M25.562 Osteoarthritis of left knee M17.12
--- OUTSIDE RECORDS SUMMARY | 2024-07-07 10:52 | XMS_ITS | Clinical Summary ---
Author Organization [facility] Address [address] [place] [address] Care Team Providers Care Chief Science Officer Name Role Phone Osman Wilkinson MD Primary Care Provider [phone]- [phone] Allergies Active Allergy Reactions Criticality Noted Date [...] age to complete this topic Care Teams Chief Science Officer Relationship Specialty Start Date End Date Osman Wilkinson MD [address] [address] PCP - General Internal Medicine 4/7/22
--- OUTSIDE RECORDS SUMMARY | 2024-07-07 10:52 | XMS_ITS | Clinical Summary ---
Author Organization [facility] Address [address] [place] [address] Care Team Providers Care Health And Human Performance Professor Name Role Phone Osman Wilkinson MD Primary Care Provider [phone] Allergies No known active allergies Medications diclofenac enteric coated (VOLTAREN) 75 MG EC tablet Take 75 mg by mouth. Active cyanocobalamin (VITAMIN B-12) 1000 MCG tablet Take 1,000 mcg by mouth. Active Multiple Vitamins-Minera ls (PreserVision AREDS) Cap Take 1 capsule by [...] patient's age to complete this topic Insurance MEDICARE PART A & B MEDICARE PART A & B AETNA MGD MEDICARE Care Teams Health And Human Performance Professor Relationship Specialty Start Date End Date Osman Wilkinson MD [address] [place] [id number] PCP - General 07/07/20
--- OUTSIDE RECORDS SUMMARY | 2024-07-07 10:52 | XMS_ITS | Clinical Summary ---
Author Organization [facility] Address [address] [place] [address] Care Team Providers Care Metal Sprayer Production Name Role Phone Osman Wilkinson Primary Care Provider [phone] Allergies Active Allergy Reactions Criticality Noted Date Comments Pollen Extracts Unknown Low 11/01/2019 Medications bromfenac (XIBROM) 0.09 % ophthalmic solution 07/10/2018 Active prednisoLONE acetate (PRED FORTE) 1% ophthalmic suspension 07/10/2018 Active vitamins A,C,E-zinc-leana er [id number] pffv-ul-dpye capsule Take 1 capsule by mouth. Active [...] Info) Description 08/25/2024 1:15 PM EDT Follow-Up [facility] [address] [address] Dunia Walls MD [address] [place], [place] [id number] Health Maintenance Due Date Last Done Comments DTaP,Tdap,and Td Vaccines (1 - Tdap) 09/25/1957 Osteoporosis Screening 09/25/1985 Pneumococcal Vaccine: 50+ Years (1 of 1 - PCV) 09/25/1985 Zoster Vaccines (1 of 2) 09/25/1985 RSV Vaccine (60+ years old and patients) (1 - 1-dose 75+ series) 09/25/2010 COVID-19 Vaccine ( season) 2023 12/23/2022, 07/16/2021, 01/16/2021, Additional history exists Alcohol/Substance Use Screening 03/17/2024 Depression Screening and Follow-Up 03/17/2024 Health Care Proxy Review 03/17/2024 Social Drivers of Health Annual Screening 03/17/2024 Influenza Vaccine (Season Ended) 2024 12/23/2022, 02/03/2021, 02/23/2019 Hepatitis B Vaccines Aged Out No long er eligible based on patient's age to complete this topic Insurance AETNA MCR Care Teams Metal Sprayer Production Relationship Specialty Start Date End Date Osman Wilkinson [address] [place] [address] PCP - General Internal Medicine 08/21/18
--- OUTSIDE RECORDS SUMMARY | 2024-07-07 10:52 | XMS_ITS | Referral Summary ---
Author Organization [facility] Address [address] [place] [address] Care Team Providers Care Spray Machine Tender Name Role Phone Osman Wilkinson Primary Care Provider Allergies Active Allergy Reactions Criticality Noted Date Comments Pollen Extracts Unknown Low 11/01/2019 Medications bromfenac (XIBROM) 0.09 % ophthalmic solution 07/10/2018 Active prednisoLONE acetate (PRED FORTE) 1% ophthalmic suspension 07/10/2018 Active vitamins A,C,E-zinc-leana er [id number] acpz-rc-ussq capsule Take 1 capsule by mouth. Active [...] Info) Description 08/25/2024 1:15 PM EDT Follow-Up [facility] [address] [address] Dunia Walls MD [address] [place] [address] Insurance AETNA MCR Care Teams Spray Machine Tender Relationship Specialty Start Date End Date Osman Wilkinson [address] [address] PCP - General Internal Medicine 08/21/18
--- OUTSIDE RECORDS SUMMARY | 2024-07-07 10:52 | XMS_ITS | Encounter Summary ---
Author Organization [facility] Address [address] [place] [address] Care Team Providers Care Word Processing Operator Name Role Phone Unknown Primary Care Provider [phone] Encounter Details Date Type Department Care Team (Late st Contact Info) Description 05/30/2020 5:46 PM EDT Hospital Encounter [facility] [address] [place] [phone] Bonnie Babb PA [facility] [address] [place] [address] Social History Tobacco Use Types Packs/Day Years [...] on filedocumented in this encounter Care Teams Word Processing Operator Relationship Specialty Start Date End Date Unknown Unknow Provider Address PCP - General 05/30/20 07/06/20 documented as of this encounter
--- OUTSIDE RECORDS SUMMARY | 2024-07-07 10:52 | XMS_ITS | Clinical Summary ---
Author Organization [facility] [address] [facility] Address [address] [place] [address] Phone Care Team Providers Care Hard Hat Diver Name Role Phone Any Chu NP Primary Care Provider [phone] Allergies Active Allergy Reactions Criticality Noted Date [...] 9:00 AM EST Office Visit Gastroenterology - [address] [place] [address] [place] [phone] Dena Gutierrez PA Fecal smearing (Primary Dx) from Last 3 Months Surgical History Surgery Date Site/Laterality Comments TOTAL KNEE ARTHROPLASTY PROCEDURE: [place] ARTHRP KNE CONDYLE&PLATU MEDIAL&LAT COMPARTMENTS TONSILLECTOMY ADENOIDECTOMY, BILATERAL MYRINGOTOMY AND TUBES PROCEDURE: [place] TONSILLECTOMY & ADENOIDECTOMY <AGE 12 SHOULDER SURGERY [...] Vaccines (1 of 2) 09/25/1985 RSV Immunization Adult Patients (1 - 1-dose 75+ series) 09/25/2010 Depression Screening 02/22/2022 Falls Risk Assessment 02/22/2022 Medicare Annual Wellness Visit 02/22/2022 Osteoporosis Screening (Bone Density Screening) 02/22/2022 Social Influencers of Health Screening 02/22/2022 COVID-19 Vaccine ( season) 2023 12/23/2022, 07/09/2022, 01/12/2022, Additional history exists Influenza Vaccine (Season Ended) 2024 12/23/2022, 02/03/2021, 02/23/2019 HIB Vaccines Aged Out No [...] age to complete this topic Meningococcal B Vaccine Aged Out No l onger eligible based on patient's age to complete this topic RSV Immunization Patients Under 20 months Aged Out No longer eligible based on patient's age to complete this topic Varicella Vaccines Aged Out No longer eligible based on patient's age to complete this topic Insurance AETNA MEDICARE ADVANTAGE AETNA Care Teams Hard Hat Diver Relationship Specialty Start Date End Date Any Chu NP [address] [place] [id number] [facility] - General 08/14/22
== END 2024-07-07 10:22 | disposition home or self-care (01) ==
LOC: HO.HOS 09:40
PROVIDERS: PCP Family Medicine; Visit Provider Orthopaedic Surgery
DX: M17.12 Unilateral primary osteoarthritis, left knee (principal); Z96.651 Presence of right artificial knee joint
CPT/HCPCS: 99213; G2211

== ENCOUNTER → 2024-07-07 09:40 | Outpatient (BNVA) | payer OTHER, SELFPAY | PROVIDERS: PCP Family Medicine; Visit Provider Orthopaedic Surgery ==

== ENCOUNTER 2024-07-12 08:39 | Day surgery (SDC) | payer MEDICARE, SELFPAY ==
[2024-06-14 10:37] VITALS: BP 114/59; PULSE 68; RESP 20; O2SAT 97; BMI 32.0
--- OUTSIDE RECORDS SUMMARY | 2024-06-14 12:05 | XMS_ITS | Clinical Summary ---
Author Organization [facility] Address [address] [place] [address] Care Team Providers Care Security Solutions Architect Name Role Phone Osman Wilkinson Primary Care Provider Allergies Active Allergy Reactions Criticality Noted Date Comments Pollen Extracts Unknown Low 11/01/2019 Medications bromfenac (XIBROM) 0.09 % ophthalmic solution 07/10/2018 Active prednisoLONE acetate (PRED FORTE) 1% ophthalmic suspension 07/10/2018 Active vitamins A,C,E-zinc-leana er 14,320226-200 [id number]-wl-ubek capsule Take 1 capsule by mouth. Active sodium fluoride-pot nitrate 1.1-5 % paste USE ONCE DAILY AT BEDTIME IN PLACE OF REG TOOTH PASTE 01/03/2020 Active predniSONE (DELTASONE) 10 mg tablet ORAL TAKE 6 TABLETS BY MOUTH X 1 DAY, THEN 4 TABLETS ONCE DAILY 02/23/2019 Active diclofenac (VOLTAREN) 75 mg EC tablet Take 75 mg by mouth daily as needed. 01/07/2020 Active propylene glycoL (Systane Balance) 0.6 % drops Instill into affected eye(s) as needed. Active cyanocobalamin (vitamin B-12) 1,000 mcg tablet Take 1,000 mcg by mouth once a day. Active VITAMIN K2 ORAL Take by mouth. 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, right eye 08/26/2018 Social History Tobacco Use Types Packs/Day Years Used Date Smoking Tobacco: Former Smokeless Tobacco: Never Tobacco Cessation:Counseling Given: Not Answered Comments Unknown Sex and Gender Information Value Date Recorded Sex Assigned at Female 02/14/2020 10:56 AM EST Legal Sex Female 9:32 AM EDT Gender Identity Female 02/14/2020 10:56 AM EST Sexual Orientation Choose not to disclose 2019 10:56 AM EST Plan of Treatment Upcoming Encounters Date Type Department Care Team (Late st Contact Info) Description 08/25/2024 1:15 PM EDT Follow-Up [facility] [address] [address] Dunia Walls MD [address] [place], [place] [id number] Health Maintenance Due Date Last Done Comments DTaP,Tdap,and Td Vaccines (1 - Tdap) 09/25/1957 Osteoporosis Screening 09/25/1985 Pneumococcal Vaccine: 50+ Years (1 of 1 - PCV) 09/25/1985 Zoster Vaccines (1 of 2) 09/25/1985 RSV Vaccine (60+ years old and patients) (1 - 1-dose 75+ series) 09/25/2010 COVID-19 Vaccine ( season) 2023 12/23/2022, 07/16/2021, 01/16/2021, Additional history exists Influenza Vaccine (#1) 2023 , 02/03/2021, 02/23/2019 Alcohol/Substance Use Screening 03/17/2024 Depression Screening and Follow-Up 03/17/2024 Health Care Proxy Review 03/17/2024 Social Drivers of Health Annual Screening 03/17/2024 Hepatitis B Vaccines Aged Out No long er eligible based on patient's age to complete this topic Insurance [employer] MCR Care Teams Security Solutions Architect Relationship Specialty Start Date End Date Osman Wilkinson [address] [place] [address] PCP - General Internal Medicine 08/21/18
--- OUTSIDE RECORDS SUMMARY | 2024-06-14 12:05 | XMS_ITS | Encounter Summary ---
Author Organization [facility] Address [address] [place] [address] Care Team Providers Care Stem Sizer Name Role Phone Unknown Primary Care Provider [phone] Encounter Details Date Type Department Care Team (Late st Contact Info) Description 05/30/2020 5:46 PM EDT Hospital Encounter [facility] [address] [place] [place] [phone] Bonnie Babb PA [address] [facility] [address] [place] [address] Social History Tobacco Use Types Packs/Day Years Used Date Smoking Tobacco: Never Assessed Sex and Gender Information Value Date Recorded Sex Assigned at Not on file Gender Identity Not on file Sexual Orientation [...] Impression: No acute osseous abnormality. Bonnie GAONA IMCarine DIAGNOSTIC IMAGI NG ORDERABLES documented in this encounter Visit Diagnoses Not on filedocumented in this encounter Care Teams Stem Sizer Relationship Specialty Start Date End Date Unknown Unknow Provider Address PCP - General 05/30/20 07/06/20 documented as of this encounter
--- OUTSIDE RECORDS SUMMARY | 2024-06-14 12:05 | XMS_ITS | Referral Summary ---
Author Organization [facility] Address [address] [place] [address] Care Team Providers Care Wool Broker Name Role Phone Osman Wilkinson Primary Care Provider Allergies Active Allergy Reactions Criticality Noted Date Comments Pollen Extracts Unknown Low 11/01/2019 Medications bromfenac (XIBROM) 0.09 % ophthalmic solution 07/10/2018 Active prednisoLONE acetate (PRED FORTE) 1% ophthalmic suspension 07/10/2018 Active vitamins A,C,E-zinc-leana er 14,320226-200 imcw-ay-tepo capsule Take 1 capsule by mouth. Active [...] Info) Description 08/25/2024 1:15 PM EDT Follow-Up [facility] Eye [address] [address] Dunia Walls MD [address] [place] [address] Insurance [employer] MCR Care Teams Wool Broker Relationship Specialty Start Date End Date Osman Wilkinson [address] [address] PCP - General Internal Medicine 08/21/18
--- OUTSIDE RECORDS SUMMARY | 2024-06-14 12:05 | XMS_ITS | Clinical Summary ---
Author Organization [facility], Located [facility] Address [address] [place] [address] Care Team Providers Care Retail Support Specialist Name Role Phone Osman Wilkinson MD Primary Care Provider [phone] Allergies No known active allergies Medications Medication Sig Dispensed Refills Start Date End Date Status diclofenac enteric coated (VOLTAREN) 75 MG EC tablet Take 75 mg by mouth. Active cyanocobalamin (VITAMIN B-12) 1000 MCG tablet Take 1,000 mcg by mouth. Active Multiple Vitamins-Minerals (PreserVision AREDS) Cap Take 1 capsule by mouth. Active Sodium Fluoride 5000 Sensitive 1.1-5 % Gel USE AT BEDTIME IN PLACE OR REGULAR PASTE 09/05/2023 Active Social History Tobacco Use Types Packs/Day Years Used Date Smoking Tobacco: Never Assessed Sex and Gender Information Value Date Recorded Sex Assigned at Not on file Gender Identity Not on file Sexual Orientation Not on file Last Filed Vital Signs Vital Sign Reading Time Taken Comments Blood Pressure 119/77 11/16/2023 3:20 PM EDT Pulse 89 11/16/2023 3:20 PM EDT Temperature 36.6 ??C (97.8 ??F) 11/16/2023 3:20 PM ED T Respiratory Rate 16 11/16/2023 3:20 PM EDT Oxygen Saturation 95% 11/16/2023 3:20 PM EDT Inhaled Oxygen Concentration - - Weight 81.6 kg (180 lb) 05/30/2020 5:28 PM EDT Height 162.6 cm (5' 4 ) 05/30/2020 5:28 PM EDT Body Mass Index 30.9 05/30/2020 5:28 PM EDT Plan of Treatment Health Maintenance Due Date Last Done Comments DTaP/Tdap/Td Vaccines (1 - Tdap) 09[birth year]25/1954 Pneumococcal Vaccines 50+ (1 of 1 - PCV) 09/25/1985 Zoster (Shingles) Vaccine (1 of 2) 09/25/1985 DXA Bone Density (Females,Ages 65 and older) 09/25/2000 RSV Vaccine 60 years and older and Patients (1 - 1-dose 75+ series) 09/25/2010 Influenza Vaccine 10/16/2023 12/23/2022, , 02/23/2019 COVID-19 Vaccine (2023- season) 2023 12/23/2022, 07/09/2022, 01/12/2022, Additional history exists Hepatitis B Vaccines Aged Out No long er eligible based on patient's age to complete this topic Care Teams Retail Support Specialist Relationship Specialty Start Date End Date Osman Wilkinson MD [address] [place] [id number] PCP - General 07/07/20
--- OUTSIDE RECORDS SUMMARY | 2024-06-14 12:05 | XMS_ITS | Clinical Summary ---
Author Organization [facility] [address] [facility] Address [address] [place] [address] Phone Care Team Providers Care Ship Loader Name Role Phone Any Chu NP Primary Care Provider [phone] Allergies Active Allergy Reactions Criticality Noted Date Comments Levonorgestrel-Ethinyl Estrad 2024 Medications diclofenac (VOLTAREN) 75 mg EC tablet Take 75 mg by mouth daily as needed. 05/10/2021 Active multivitamin (MULTIPLE VITAMINS ORAL) TAKE 1 TABLET DAILY. 06/17/2017 Active glucosamine-chaparro droitin 500-400 mg capsule Take by mouth. Active cyanocobalamin (VITAMIN B-12) 1,000 mcg tablet Take 1 tablet (1,000 mcg total) by mouth. Active calc/D3/mag cit,ox/K2/herb35 3 (ALIVE CALCIUM-VITAMIN D3-K2 ORAL) Take by mouth. 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 Spider varicose vein 03/18/2017 Macular degeneration 03/18/2017 Encounters Date Type Department Care Team Description 05/20/2024 9:00 AM EST Office Visit Gastroenterology - [address] [place] [address] [place] [id number] Dena Gutierrez PA Fecal smearing (Primary Dx) from Last 3 Months Surgical History Surgery Date Site/Laterality Comments TOTAL KNEE ARTHROPLASTY PROCEDURE: [place] ARTHRP KNE CONDYLE&PLATU MEDIAL&LAT COMPARTMENTS TONSILLECTOMY ADENOIDECTOMY, BILATERAL MYRINGOTOMY AND TUBES PROCEDURE: [place] TONSILLECTOMY & ADENOIDECTOMY <AGE 12 SHOULDER SURGERY PROCEDURE: HISTORICAL SHOULDER SURGERY CARPAL TUNNEL RELEASE Left PROCEDURE: HISTORICAL CARPAL TUNNEL REL COLONOSCOPY 03/17/2015 - 03/16/2016 [facility] Medical History Medical History Date Comments Diverticulosis DX:Diverticulosi s Osteoarthritis DX:Osteoarthriti s Hyperglycemia DX:Hyperglycemia Family History Medical History Relation Name Comments Other cancer Father Other cancer Mother Relation Name Status Comments Father Mother Social History Tobacco Use Types Packs/Day Years Used Date Smoking Tobacco: Former Cigarettes Q uit: 03/17/1966 Smokeless Tobacco: Never Alcohol Use Standard Drinks/Week Comments Never 0 (1 standard drink = 0.6 oz pur e alcohol) Comments Unknown Sex and Gender Information Value Date Recorded Sex Assigned at Not on file Legal Sex Female 8:30 AM EST Gender Identity Not on file Sexual Orientation Not on file Obstetrics History Last Filed Vital Signs Vital Sign Reading Time Taken Comments Blood Pressure 160/78 03/01/2024 11:35 AM EST Pulse 67 03/01/2024 11:35 AM EST Temperature 36.5 ??C (97.7 ??F) 03/01/2024 11:[address] Respiratory Rate - - Oxygen Saturation 99% 03/01/2024 11:35 AM EST Inhaled Oxygen Concentration - - Weight 82.1 kg (181 lb) 05/20/2024 9:16 AM EST Height 162.6 cm (5' 4 ) 05/20/2024 9:16 AM EST Body Mass Index 31.07 05/20/2024 9:16 AM EST Plan of Treatment Health Maintenance Due Date Last Done Comments DTaP,Tdap,and Td Vaccines (1 - Tdap) 09/25/1954 Pneumococcal Vaccine: 50+ Years (1 of 1 - PCV) 09/25/1985 Zoster Vaccines (1 of 2) 09/25/1985 RSV Immunization Patients 60+ Years Old (1 - 1-dose 75+ series) 09/25/2010 Depression Screening 02/22/2022 Falls Risk Assessment 02/22/2022 Medicare Annual Wellness Visit 02/22/2022 Osteoporosis Screening (Bone Density Screening) 02/22/2022 Social Influencers of Health Screening 02/22/2022 COVID-19 Vaccine ( season) 2023 12/23/2022, 07/09/2022, 01/12/2022, Additional history exists Influenza Vaccine (#1) 2023 3, 02/03/2021, 02/23/2019 HIB Vaccines Aged Out No longer eligi ble based on patient's age to complete this topic HPV Vaccines Aged Out No longer eligi ble based on patient's age to complete this topic Hepatitis A Vaccines Aged Out No long er eligible based on patient's age to complete this topic Hepatitis B Vaccines Aged Out No long er eligible based on patient's age to complete this topic IPV Vaccines Aged Out No longer eligi ble based on patient's age to complete this topic MMR Vaccines Aged Out No longer eligi ble based on patient's age to complete this topic Meningococcal ACWY Vaccine Aged Out N o longer eligible based on patient's age to complete this topic Meningococcal B Vacine Aged Out No lo nger eligible based on patient's age to complete this topic RSV Immunization Patients Under 20 months Aged Out No longer eligible based on patient's age to complete this topic Varicella Vaccines Aged Out No longer eligible based on patient's age to complete this topic Insurance AETNA MEDICARE ADVANTAGE AETNA Care Teams Ship Loader Relationship Specialty Start Date End Date Any Chu NP [address] [place] [id number] [facility] - General 08/14/22
--- OUTSIDE RECORDS SUMMARY | 2024-06-14 12:05 | XMS_ITS | Clinical Summary ---
Author Organization [facility] Address [address] [place] [address] Care Team Providers Care Manager Fashion Name Role Phone Osman Wilkinson MD Primary Care Provider [phone] Allergies Active Allergy Reactions Criticality Noted Date Comments Pollen Extract Other (See Comments) Low 11/01/2019 Medications Medication Sig Dispensed Refills Start Date End Date Status diclofenac (VOLTAREN) 75 MG EC tablet Take 75 mg by mouth daily as needed. 0 05/10/2021 Active Glucosamine-Chondroitin (GLUCOSAMINE CHONDR COMPLEX PO) Take by mouth. 0 Active Immunizations Name Administration Dates Next Due Covid-19 (Pfizer) Dilution Required 06/21/2020,0 05/26/2020 Family History Medical History Relation Name Comments Cancer Father Cancer Mother Relation Name Status Comments Father Mother Social History Tobacco Use Types Packs/Day Years Used Date Smoking Tobacco: Never Assessed Sex and Gender Information Value Date Recorded Sex Assigned at Not on file Gender Identity Not on file Sexual Orientation Not on file Job Start Date Occupation Industry Not on file Not on file Not on file Last Filed Vital Signs Vital Sign Reading Time Taken Comments Blood Pressure - - Pulse - - Temperature - - Respiratory Rate - - Oxygen Saturation - - Inhaled Oxygen Concentration - - Weight 77.1 kg (170 lb) 11/07/2021 1:09 PM EDT Height 162.6 cm (5' 4 ) 11/07/2021 1:09 PM EDT Body Mass Index 29.18 11/07/2021 1:09 PM EDT Plan of Treatment Health Maintenance Due Date Last Done Comments Depression Screening 1947 Preventative Health Evaluation 09/25/1953 DTap / Tdap / Td (1 - Tdap) 09/25/1954 Shingrix-Zoster Vaccine (1 o f 2) 09/25/1985 Fall Risk Assessment 09/25/2000 Osteoporosis Screening (DEXA Scan) 09/25/2000 Pneumococcal Vaccine (1 of 1 - PCV) 09/25/2000 RSV Adult > 60+ Yrs or (1 - 1-dose 75+ series) 09/25/2010 COVID-19 Vaccine (3 - 2023-2 5 season) 2023 06/21/2020, 05/26/2020 Influenza Vaccine (#1) 2023 Hepatitis B Vaccines Aged Out No long er eligible based on patient's age to complete this topic RSV Ped < 20 months Aged Out No longe r eligible based on patient's age to complete this topic Care Teams Manager Fashion Relationship Specialty Start Date End Date Osman Wilkinson MD [address] [id number] PCP - General Internal Medicine 4/7/22
[2024-06-14 13:42] LABS: MRSA Nasal PCR NEGATIVE (Negative); SA Nasal PCR NEGATIVE (Negative)
[2024-07-12] VITALS (7 sets, daily range): BP systolic 114–142; BP diastolic 49–75; PULSE 53–64; RESP 16–18; TEMP 34.8–36.7; O2SAT 93–99; BMI 35.3
[2024-07-12] MEDS: Lactated Ringers 1,000 ML 100 ML IVCONT ×2 (09:35→14:07)
[2024-07-12 09:42] LABS: Hematocrit 35.5 % (37.0-47.0); Hemoglobin 11.7 g/dl (12.0-16.0); Mean Corpuscular Hemoglobin 29.5 pg (27.0-33.0); Mean Corpuscular Volume 89.4 fL (80.0-98.0); Mean Platelet Volume 10.7 fL (9.4-12.3); Platelet Count 198 X10*3/uL (160-400); Red Blood Count 3.97 X10*6/uL (4.20-5.50); Red Cell Distribution Width 14.1 % (11.0-16.0); White Blood Count 4.8 X10*3/uL (4.8-10.8)
[2024-07-12 09:54] LABS: Anion Gap 11 (12-20); Blood Urea Nitrogen 23 mg/dL (9-16); Calcium 8.8 mg/dL (8.4-10.2); Carbon Dioxide 25 mmol/L (22-29); Chloride 109 mmol/L (96-108); Creatinine Clr Calc Pharmacy 53.5; Estimated Glomerular Filt Rate > 60; Glucose Fasting 99 mg/dL (60-99); Potassium 4.3 mmol/L (3.3-5.1); Sodium 141 mmol/L (135-145)
--- NOTE | 2024-07-12 10:00 | HO.ANESPROP2 ---
Documented by User: Alisson Duran NP 07/09/24 13:37 HPI - Anesthesia Eval Consult details Narrative: 88yo F for Left Knee Replacement Total, 07/12/[address] [facility] No recent illness No CP/SOB with housework, grocery shopping PMFSH Active Problems Active Problems: All Active Problems Preoperative testing (Acute) Right knee pain (Acute) Bilateral knee pain (Acute) Osteoarthritis of left knee (Acute) Past Medical History Medical History History of MRSA infection Heartburn Pre-diabetes Osteopenia Nonexudative age-related macular degeneration DJD (degenerative joint disease) Female bladder prolapse Arthritis Surgical History Surgical History Hx of eye surgery Hx of tonsillectomy Hx of left cataract extraction History of esophagogastroduodenoscopy (EGD) H/O colonoscopy Hx of breast biopsy Hx of shoulder surgery History of total right knee replacement History of carpal tunnel release Social History Social History Are you a primary career developer to a significant other at home: No Do you presently have visiting nurse or other home services: No Alcohol intake: never Comment: advised of trip hazard Patient Tobacco Use Status: Former Tobacco user Tobacco use type: Cigarette Years Smoked: 10 Use of substances other than those prescribed or required for medical reasons: No Have you been hit, kicked, punched, or otherwise hurt by someone within the past year? If so, by whom?: No Spiritual Healthcare Practices: none Jewish Healthcare Practices: Rastafarian Cultural Healthcare Practices: none Are you DNR?: No Advance Directives: No (states is primary contact) Advance Directives Information Provided: Yes (as above noted) Advance Directives on File: No Recently lost weight without trying: No Eating poorly because of decreased appetite: No Nutrition Risks: Surgical patient >75years FDLMP: n/a Poor oral hygiene: No (some missing teeth-wears nightguard at night) Current occupational status: retired Meds Allergies Allergy/AdvReac Type Severity Reaction Status Date / Time No Known Allergies Allergy Verified 07/12/24 09:26 Home Medications ?Medication ?Instructions ?Recorded ?Confirmed ?Last Taken ?Type acetaminophen 500 mg tablet 1,000 mg PO QID PRN Pain 06/14/24 07/07/24 Unknown History amoxicillin 500 mg tablet 1,000 mg PO ONCE prophylaxis 06/14/24 06/14/24 Unknown History calcium 600 mg (as 1 tab PO BID 06/14/24 07/07/24 Unknown History carbonate)-vitamin D3 5 mcg (200 unit) tablet Exam Height,Weight and Vital Signs: Height 5 ft 3.27 in Weight 82.6 kg Last Vital Signs Pulse 68 06/14/24 10:37 Resp 20 06/14/24 10:37 BP 114/59 L 06/14/24 10:37 Pulse Ox 97 06/14/24 10:37 O2 Del Method Room Air 06/14/24 10:37 Pertinent Lab Results Pertinent Lab Results: Lab Results 06/11/24 07/07/24 Range/Units 10:50 10:50 Nasal Screen MRSA (PCR) NEGATIVE (Negative) Nasal S. aureus Screen NEGATIVE (Negative) Nasal MRSA/S.aureus Interp SEE NOTE Blood Type O Positive Antibody Screen NEGATIVE Narrative Narrative: EKG 05/2024 [id number] Ventricular Rate: 66 BPM Atrial Rate: 66 BPM P-R Interval: 216 ms QRS Duration: 92 ms Q-T Interval: 418 ms QTC Calculation(Bazett): 438 ms P Ellsworth: 49 degrees R Ellsworth: -35 degrees T Ellsworth: 0 degrees Sinus rhythm with 1st degree A-V block Left axis deviation Minimal voltage criteria for LVH, may be normal variant Abnormal ECG No previous ECGs available Confirmed by SEDA HICKS ([id number]) on 05/24/2024 12:13:34 PM Airway Mallampati Class: II TM Dist: >3cm Neck ROM: Full Loose/Missing/Broken Teeth: Yes (permanent bridge left upper) Heart: RRR Lungs: CTAB Assessment and Plan Assessment Anesthesia Assessment: Anesthesia Plan Discussed and PAT Visit Documented by User: Ingrid Howell DO 07/12/24 11:11 [facility] Past Medical History Medical History History of MRSA infection Heartburn Pre-diabetes Osteopenia Nonexudative age-related macular degeneration DJD (degenerative joint disease) Female bladder prolapse Arthritis Family History Family history of problems with anesthesia: No Surgical History Surgical History Hx of eye surgery Hx of tonsillectomy Hx of left cataract extraction History of esophagogastroduodenoscopy (EGD) H/O colonoscopy Hx of breast biopsy Hx of shoulder surgery History of total right knee replacement History of carpal tunnel release History of Problems with Anesthesia: No Social History Social History Are you a primary career developer to a significant other at home: No Do you presently have visiting nurse or other home services: No Alcohol intake: never Comment: advised of trip hazard Patient Tobacco Use Status: Former Tobacco user Tobacco use type: Cigarette Years Smoked: 10 Use of substances other than those prescribed or required for medical reasons: No Have you been hit, kicked, punched, or otherwise hurt by someone within the past year? If so, by whom?: No Spiritual Healthcare Practices: none Jewish Healthcare Practices: Rastafarian Cultural Healthcare Practices: none Are you DNR?: No Advance Directives: No (states is primary contact) Advance Directives Information Provided: Yes (as above noted) Advance Directives on File: No Recently lost weight without trying: No Eating poorly because of decreased appetite: No Nutrition Risks: Surgical patient >75years FDLMP: n/a Poor oral hygiene: No (some missing teeth-wears nightguard at night) Current occupational status: retired Grows Allergies Allergy/AdvReac Type Severity Reaction Status Date / Time No Known Allergies Allergy Verified 07/12/24 09:26 Home Medications ?Medication ?Instructions ?Recorded ?Confirmed ?Last Taken ?Type acetaminophen 500 mg tablet 1,000 mg PO QID PRN Pain 06/14/24 07/07/24 Unknown History amoxicillin 500 mg tablet 1,000 mg PO ONCE prophylaxis 06/14/24 06/14/24 Unknown History calcium 600 mg (as 1 tab PO BID 06/14/24 07/07/24 Unknown History carbonate)-vitamin D3 5 mcg (200 unit) tablet Exam Exam Date and Time: 07/12/24 1000 Height,Weight and Vital Signs: Height 5 ft 3.27 in Weight 82.6 kg Last Vital Signs Pulse 68 06/14/24 10:37 Resp 20 06/14/24 10:37 BP 114/59 L 06/14/24 10:37 Pulse Ox 97 06/14/24 10:37 O2 Del Method Room Air 06/14/24 10:37 Vital Signs Pulse Rate 68 06/14/24 10:37 Respiratory Rate 20 06/14/24 10:37 Blood Pressure 114/59 L 06/14/24 10:37 Pulse Oximetry 97 06/14/24 10:37 Oxygen Delivery Method Room Air 06/14/24 10:37 Temperature 98.0 F 07/12/24 09:31 Pulse Rate 64 07/12/24 09:31 Respiratory Rate 16 07/12/24 09:31 Blood Pressure 141/72 H 07/12/24 09:31 Pulse Oximetry 96 07/12/24 09:31 Oxygen Delivery Method Room Air 07/12/24 09:31 Airway Mallampati Class: II TM Dist: >3cm Neck ROM: Full Loose/Missing/Broken Teeth: Yes (permanent bridge left upper) Heart: S1S2 Assessment and Plan Assessment Anesthesia Assessment: Anesthesia Plan Discussed and Chart Reviewed Final Anesthetic Review Family History of Problems with Anesthesia: No History of Problems with Anesthesia: No NPO: Yes ASA Class: II Final Preanesthetic Review: No Changes in Pt Med Stat, Meds/Allgs Chart Reviewed, Consent Obtained/Reviewed and Anes Risks/Benef Reviewed Patient Risk: Low Procedure Risk: Intermediate Anesthetic Plan Anesthetic Plan: Spinal, Regional Block (left adductor canal and left ipack block) and Agree w/ Assess. and Plan Disposition: Standard PACU
[2024-07-12] MEDS: ceFAZolin Sodium/Dextrose,Iso 2 GM/50 ML PIGGYBACK IV ×2 (10:50→17:22)
--- NOTE | 2024-07-12 13:20 | P.BOP_ITS ---
Brief Operative Note Date of Service: 07/12/24 Pre-op diagnosis: Left knee degenerative joint disease Post-op diagnosis: same Procedure: Left total knee arthroplasty Implants: [place] [employer] cemented posterior stabilized total knee arthroplasty with a femoral component size 4 left, universal tibial component size 5, polyethylene liner size 5 with 9 mm of thickness, tibial stem measuring 12 mm in diameter by 50 mm in length, a symmetric patellar component size 29 with 8 mm of thickness Surgeon: Dhruv Lewis MD Anesthesia: regional and spinal Was an Network Internship used for this Procedure?: No Network Internship: Jessica Saldivar Estimated blood loss (mL): 200 Pathology: other (Bony fragments from the left femur, tibia and patella) Condition: stable Disposition: PACU
--- NOTE | 2024-07-12 13:22 | W.PM.OPN ---
Operative Note Operative Note Date of Service: 07/12/24 Narrative: After the patient was identified as Gayle Ji and her left knee was initialed by myself the patient was brought to the holding area where a left leg nerve block was performed by the anesthesiologist in routine fashion. The patient was then brought to the operating room where conscious sedation and spinal anesthesia were performed by the anesthesiologist in routine fashion. The patient was given 2 g of IV Ancef preoperatively for infection prophylaxis. The patient's left lower extremity was prepped and draped in sterile fashion. A formal time-out was completed. The patient's left knee was placed onto a small bump to produce 30? of knee flexion during exposure. A #10 scalpel blade was used to make a midline incision extending 1 handbreadth proximal and distal to the patella. A second #10 scalpel blade was used to dissect the subcutaneous tissues down to the extensor mechanism. The subcutaneous flaps were maintained as thick as possible. A medial parapatellar arthrotomy was then performed using a #10 scalpel blade. The arthrotomy was begun just medial to the patellar tendon. The arthrotomy was continued 1 cm medial to the patella and then 5 mm into the medial aspect of the quadriceps tendon. The infrapatellar fat pad was partially excised to help with exposure. The soft tissue retinaculum was raised one-half of the way around the medial aspect of the proximal tibia. The patella was everted and the knee was flexed to 90?. There was no injury to the patellar tendon or its insertion onto the tibial tubercle. A drill bit was introduced into the distal aspect of the femur with a starting point 1 cm anterior to the origin of the posterior cruciate ligament. The intramedullary alignment robert was put into place. The distal alignment guide was set for a 5 degree valgus cut. The distal cutting block was put into place and was held with 4 pins. The intramedullary alignment robert was removed. Soft tissues were retracted in the distal femoral cut was made using a sagittal saw. The distal aspect of the femur measured to be a size 4 left component. Two drill holes were placed into the distal aspect of the femur marking 3? of external rotation. The distal cutting block was impacted into place and was held with 2 pins. Soft tissues were retracted and the 4 distal femoral cuts were made using a sagittal saw. Final notching and drilling of the distal aspect of the femur were performed in routine fashion. The trial femoral component was impacted into place. The knee was taken through a full range of motion. The patella tracked well. The patella was everted and the knee was flexed to 90?. The trial component was removed and our attention was directed to the proximal tibia. The medial and lateral menisci were removed using a #10 scalpel blade. A small rim of the medial meniscus was left intact to help prevent injury to the medial collateral ligament. A drill bit was then introduced into the proximal tibia with a starting point midway from medial to lateral and one-third of the way posteriorly. The intramedullary alignment robert was put into place. The proximal tibial cutting guide was placed over the alignment robert in line with the 2nd toe. The guide was held in place using 3 pins. The intramedullary alignment robert was removed. Soft tissues were retracted and the proximal tibial cut was made using a sagittal saw. Inspection of the proximal tibia showed a small cyst along the medial tibial plateau measuring 5 mm x 5 mm x 10 mm. Because of the presence of the cyst and the patient's age the decision was made to use a tibial stem to help prevent loosening of the tibial component in the future. The proximal tibia measured to be a size 5 component. The tibial tray was put into place with a 9 mm liner. The femoral component was impacted into place. The knee was taken through a full range of motion. There was full flexion and full extension. There was no instability with varus or valgus stress testing with the knee in flexion or extension. The patella tracked well with no medially directed force. The rotation of the tibial tray was marked using electrocautery with the knee in extension. The patella was everted and the knee was flexed to 90?. All trial components were removed. The tibial tray was placed onto the proximal tibia in line with the electrocautery renaldo. The tray was held in place using 3 pins. Final broaching and drilling of the proximal tibia were performed in routine fashion. The trial liner and trial femoral component were put into place. The knee was brought into extension and our attention was directed to the patella. The patella measured 25 mm in thickness. The patellar resection guide was set for a 10 mm resection. Soft tissues were retracted and the patella cut was made using a sagittal saw. The remaining patella measured 15 mm in thickness. The undersurface of the patella was measured to be a size 29 symmetric component. Three drill holes were placed into the undersurface of the patella in routine fashion. The trial component was put into place. The knee was taken through a full range of motion. The patella tracked well. The patella was everted and the knee was flexed to 90?. All trial components were removed. The knee was once again brought into extension and placed onto a small bump. The knee joint was irrigated with copious amounts of normal saline solution via pulse lavage while the cement was mixed. The patella was everted and the knee was flexed to 90?. A small amount of cement was placed along the posterior aspects of the tibial and femoral components. Cement was then pressurized into the proximal tibia. The tibial component was impacted into place. Any excess cement was removed. The polyethylene liner was then impacted into place. Cement was then pressurized into the distal aspect of the femur. A small amount of cement was placed into the intramedullary canal to help reduce bleeding. The femoral component was impacted into place. Any excess cement was removed. The knee was then brought into extension. Cement was pressurized into the undersurface of the patella. The patellar component was put into place and was held with a patella clamp. Any excess cement was removed. Once the cement had hardened the patellar clamp was removed. The knee was taken through a full range of motion. There was full flexion and extension. There was no instability with varus or valgus stress testing with the knee in flexion or extension. The patella tracked well with no medially directed force. The knee joint was irrigated with copious amounts of normal saline solution via pulse lavage. Any significant bleeding vessels were coagulated. The patient's left knee was placed onto a small bump. The arthrotomy was closed with #2 Ethibond [id number] interrupted suture as well as #1 Vicryl [id number] interrupted suture. The wound was once again irrigated. The subcutaneous tissues were closed with 0 Vicryl and 2-0 Vicryl interrupted sutures. The skin was closed with skin javier. Dry sterile dressing and Berny bandages were placed over the patient's left knee. The patient was awake and alert. The patient was transferred to the recovery room in stable condition.
--- NOTE | 2024-07-12 13:30 | PHA.MEDREC ---
Pharmacy Consult ? Medication Reconciliation Pharmacy has completed the medication reconciliation.
--- NOTE | 2024-07-12 13:31 | PHA.MEDREC ---
Addendum entered by Manuelito Vargas 07/12/24 13:40: reviewed Original Note: Pharmacy Consult ? Medication Reconciliation Pharmacy has reviewed the medication reconciliation done by nursing. claims match med list.
[2024-07-12] MEDS: oxyCODONE HCl ER 10 MG TAB.ER.12H PO ×2 (14:41→21:09)
[2024-07-12] MEDS: Celecoxib 200 MG CAPSULE PO ×2 (14:41→21:09)
[2024-07-12] MEDS: methocarbamoL 500 MG TABLET PO ×2 (14:41→21:09)
[2024-07-12] MEDS: oxyCODONE HCl Immed Release 5 MG TABLET PO ×2 (14:41→21:09)
[2024-07-12] MEDS: Aspirin 325 MG TABLET PO ×2 (17:22→21:08)
[2024-07-12] MEDS: HYDROmorphone HCl 0.5 MG/0.5 ML SYRINGE 0.25 MG IVPUSH (17:22)
[2024-07-12] MEDS: Gabapentin 100 MG CAPSULE PO (21:10)
[2024-07-12] MEDS: Sennosides 8.6 MG TABLET 17.2 MG PO (21:10)
[2024-07-13] MEDS: Lactated Ringers 1,000 ML 100 ML IVCONT (00:20)
[2024-07-13] MEDS: ceFAZolin Sodium/Dextrose,Iso 2 GM/50 ML PIGGYBACK IV (01:58)
[2024-07-13 03:52] VITALS: BP 136/68; PULSE 58; RESP 18; TEMP 36.8; O2SAT 95
[2024-07-13] MEDS: oxyCODONE HCl Immed Release 5 MG TABLET PO ×3 (05:56→21:40)
[2024-07-13 06:07] LABS: MANUAL DIFF FLAG NO
[2024-07-13 06:14] LABS: Basophils Percent Auto 0.1 % (0-2); Hematocrit 30.7 % (37.0-47.0); Hemoglobin 10.2 g/dl (12.0-16.0); Imm Gran Abs Auto 0.04 X10*3/uL (0.00-0.03); Imm Gran Pct Auto 0.5 % (0.0-0.4); Lymphocytes Percent Auto 12.5 % (20-40); Mean Corpuscular HGB Conc 33.2 g/dl (31.0-35.0); Mean Corpuscular Hemoglobin 29.4 pg (27.0-33.0); Mean Corpuscular Volume 88.5 fL (80.0-98.0); Monocytes Absolute Auto 0.4 X10*3/uL (0.1-1.2); Neutrophils Absolute Auto 6.6 x10*3/uL (2.0-8.3); Neutrophils Percent Auto 81.9 % (45-73); Platelet Count 176 X10*3/uL (160-400); Red Blood Count 3.47 X10*6/uL (4.20-5.50); Red Cell Distribution Width 13.9 % (11.0-16.0); White Blood Count 8.1 X10*3/uL (4.8-10.8)
[2024-07-13 06:27] LABS: Anion Gap 12 (12-20); Blood Urea Nitrogen 20 mg/dL (9-16); Calcium 8.8 mg/dL (8.4-10.2); Carbon Dioxide 24 mmol/L (22-29); Chloride 107 mmol/L (96-108); Creatinine Clr Calc Pharmacy 58.7; Estimated Glomerular Filt Rate > 60; Glucose Fasting 118 mg/dL (60-99); Potassium 4.5 mmol/L (3.3-5.1); Sodium 138 mmol/L (135-145)
[2024-07-13 07:00] VITALS: BP 128/62; PULSE 54; RESP 16; TEMP 36.2; O2SAT 96
--- NOTE | 2024-07-13 07:43 | PM.PNORT ---
Subjective Subjective Date of Service: 07/13/24 Interval history: POD1 s/p LTKA Patient is resting in bed comfortably No overnight events Pain is managed No additional complaints Physical Exam Vital Signs: Vital Signs: Last Vital Signs Temp 97.1 F 07/13/24 07:00 Pulse 54 07/13/24 07:00 Resp 16 07/13/24 07:00 BP 128/62 07/13/24 07:00 Pulse Ox 96 07/13/24 07:00 O2 Del Method Room Air 07/13/24 07:00 O2 Flow Rate 6 07/12/24 13:11 BMI result Body Mass Index 35.3 Const: General: cooperative, healthy appearing and no acute distress Resp: Effort & Inspection: normal respiratory effort and able to speak in complete sentences Cardio: Rate: regular rate Peripheral pulses: Peripheral pulses 2+ throughout GI: Palpation (GI): Soft to palpation Skin: Lesions: no lesions Rashes: no rashes Extrem: Other: left knee dressing is c/d/i. Able to dorsi/plantar flex. Calf is supple and nontender. Sensation intact. Pedal pulse intact. Procedures Date of Service Date of Service: 07/13/24 Progress Note: A&P Assessment and plan (1) Status post total knee replacement, left: Status: Acute Plan Continue pain mgmnt Continue ASA for dvt ppx begin PT for LTKA - WBAT Dispo planning-Pending PT eval, pain mgmnt Time Spent With Patient Time: Total time managing care of this patient today ____ minutes. Quality Stroke Does the patient have a stroke diagnosis?: No VTE Prior VTE?: No VTE Risk Level:: Medical - moderate - high VTE Device Contraindication: N/A - Device Ordered VTE Drug Contraindication: N/A - Med Ordered
--- NOTE | 2024-07-13 08:25 | HO.POSTANES ---
Post Anesthesia Evaluation Post Anesthesia Evaluation Date of Service: 07/13/24 Vital Signs: Vital Signs Temp Pulse Resp BP Pulse Ox O2 Del Method 07/13/24 07:00 97.1 F 54 16 128/62 96 Room Air 07/13/24 03:52 98.2 F 58 18 136/68 95 Room Air 07/12/24 22:00 97.0 F 58 18 128/65 93 Room Air Anesthesia: Spinal Mental Status: Awake Pain Control: Satisfactory Nausea/Vomiting: None Hydration: Adequate Anesthesia-Related Issues: No Anes. Related Issues
[2024-07-13] MEDS: oxyCODONE HCl ER 10 MG TAB.ER.12H PO ×2 (09:40→21:37)
[2024-07-13] MEDS: Aspirin 325 MG TABLET PO ×2 (09:40→21:37)
[2024-07-13] MEDS: methocarbamoL 500 MG TABLET PO ×3 (09:40→21:37)
[2024-07-13] MEDS: Celecoxib 200 MG CAPSULE PO ×2 (09:40→21:37)
[2024-07-13 11:00] VITALS: BP 111/54; PULSE 58; RESP 16; TEMP 36.1; O2SAT 94
--- NOTE | 2024-07-13 12:56 | MHC.CM.PN ---
PT LIVES WITH AGREEABLE TO STR WANTED [facility] WHO IS OUT OF NETWORK ADDIONAL REFERALS Made
[2024-07-13 15:07] VITALS: BP 140/63; PULSE 53; RESP 18; TEMP 36.6; O2SAT 96
[2024-07-13] MEDS: Acetaminophen 325 MG TABLET 650 MG PO ×2 (15:35→21:37)
--- NOTE | 2024-07-13 17:17 | P.DS_ITS ---
DS: Providers Provider Date of Service: 07/14/24 Date of discharge: 07/14/24 Primary care physician: Andrés Chang MD DS: Diagnosis Discharge Diagnosis (1) Status post total knee replacement, left: Status: Acute DS: Summary Hospital Course Hospital Course: The patient underwent a successful left total knee arthroplasty, they were transferred to PACU and then to the floor to recover. During their stay, their vitals were stable, afebrile at 97.8. Labs were unremarkable, H/H 10.0/31.1. POD 1 they were started on Aspirin 325mg po bid for DVT ppx, they also received Physical Therapy services twice a day. Prior to discharge, their dressing was clean dry and intact,and the plan was to be discharged to a nursing facility for additional rehab before safe discharge home. Time Attestation Discharge Coordination Time (in mins): 30 Quality: Safe Use of Opioids Does Pt have an Active Cancer Diagnosis on the Problem List?: No Quality: Stroke Does the patient have a stroke diagnosis?: No Physical Exam Vital Signs: Vital Signs: Last Vital Signs Temp 97.8 F 07/13/24 15:07 Pulse 53 07/13/24 15:07 Resp 18 07/13/24 15:07 BP 140/63 H 07/13/24 15:07 Pulse Ox 96 07/13/24 15:07 O2 Del Method Room Air 07/13/24 15:07 O2 Flow Rate 6 07/12/24 13:11 BMI result Body Mass Index 35.3 Extrem: Other: left knee dressing is c/d/i. Able to dorsi/plantar flex. Calf is supple and nontender. Sensation intact. Pedal pulse intact. DS: Data Data Completed and Pending Pending studies at discharge: Pending at discharge 07/12/24 11:34 Surgical [PTH] Routine Labs on day of discharge: Laboratory Results - last 24 hr 07/13/24 05:44 WBC 8.1 RBC 3.47 L Hgb 10.2 L Hct 30.7 L MCV 88.5 MCH 29.4 MCHC 33.2 RDW 13.9 Plt Count 176 MPV 11.0 Immature Gran % (Auto) 0.5 H Neut % (Auto) 81.9 H Lymph % (Auto) 12.5 L Warren % (Auto) 5.0 Eos % (Auto) 0.0 Baso % (Auto) 0.1 Lymph # (Auto) 1.0 L Warren # (Auto) 0.4 Eos # (Auto) 0.0 Baso # (Auto) 0.0 Abs Immat Gran (auto) 0.04 H Absolute Neuts (auto) 6.6 Absolute Nucleated RBC 0.000 Nucleated RBC % (auto) 0.0 Sodium 138 Potassium 4.5 Chloride 107 Carbon Dioxide 24 Anion Gap 12 BUN 20 H Creatinine 0.71 Estim Creat Clear Calc 58.7 Estimated GFR > 60 Fasting Glucose 118 H Calcium 8.8 Discharge Plan Discharge Patient Disposition: Home, Self-Care Referrals: Jessica Saldivar PA-C [Physician [employer]] - 07/29/24 12:30 pm Discharge Medications: New methocarbamol 500 mg Tablet 500 mg PO TID 7 Days Qty: 21 0RF acetaminophen 325 mg Tablet 650 mg PO Q6H PRN (Reason: Pain, Mild (Pain Scale 1-3)) 30 Days Qty: 240 0RF aspirin 325 mg Tablet 325 mg PO BID 42 Days Qty: 84 0RF celecoxib 200 mg Capsule 200 mg PO BID 30 Days Qty: 60 0RF sennosides [Senna Lax] 8.6 mg Tablet 17.2 mg PO BEDTIME 30 Days Qty: 60 0RF gabapentin 100 mg Capsule 100 mg PO BEDTIME 7 Days Qty: 7 0RF oxycodone 5 mg Tablet 5 mg PO Q4H 7 Days Qty: 42 0RF Rx Instructions: Partial Fill upon patient request. Continued (DME) walker Misc See Rx Instructions .ROUTE .MEDSUPPLY Qty: 1 0RF Rx Instructions: Folding front wheeled walker calcium carbonate-vitamin D3 600 mg-5 mcg (200 unit) Tablet 1 tab PO BID sodium fluoride-pot nitrate 1.1-5 % paste 1 appl PO BEDTIME Discontinued acetaminophen 500 mg Tablet 1,000 mg PO QID PRN (Reason: Pain) amoxicillin 500 mg Tablet 1,000 mg PO ONCE Discharge Orders: Discharge Order (Routine); Ordered 07/14/24 Ordered By: Jessica Saldivar Diet: Advance to usual diet Activity on Discharge: Use cane or walker Activity Restrictions/Additional Instructions: Physical Therapy for ROM 0-120, quad strength, gait training. Use walker for ambulation Limit stair climbing, No shower, No tub bath, No driving Continue Aspirin x 6 weeks Keep Aquacel dressing clean, dry and intact. Follow up with orthopedics in 2 weeks Print Language: Luxembourgish
[2024-07-13 19:13] VITALS: BP 115/61; PULSE 59; RESP 18; TEMP 36.6; O2SAT 96
[2024-07-13] MEDS: Sennosides 8.6 MG TABLET 17.2 MG PO (21:37)
[2024-07-13] MEDS: Gabapentin 100 MG CAPSULE PO (21:37)
[2024-07-13] MEDS: 0.9 % Sodium Chloride Flush 3 ML SYRINGE IVFLUSH (21:42)
[2024-07-13 23:23] VITALS: BP 117/56; PULSE 62; RESP 20; TEMP 36.6; O2SAT 93
[2024-07-14 02:54] VITALS: BP 144/63; PULSE 60; RESP 20; TEMP 36.6; O2SAT 95
[2024-07-14 06:34] LABS: MANUAL DIFF FLAG NO
[2024-07-14 06:37] LABS: Basophils Percent Auto 0.3 % (0-2); Eosinophils Absolute Auto 0.1 X10*3/uL (0.0-0.4); Eosinophils Percent Auto 0.8 % (0-4); Hematocrit 31.1 % (37.0-47.0); Imm Gran Abs Auto 0.02 X10*3/uL (0.00-0.03); Imm Gran Pct Auto 0.3 % (0.0-0.4); Lymphocytes Absolute Auto 1.3 X10*3/uL (1.2-4.9); Lymphocytes Percent Auto 21.2 % (20-40); Mean Corpuscular HGB Conc 32.2 g/dl (31.0-35.0); Mean Corpuscular Hemoglobin 28.7 pg (27.0-33.0); Mean Corpuscular Volume 89.1 fL (80.0-98.0); Mean Platelet Volume 11.4 fL (9.4-12.3); Monocytes Absolute Auto 0.5 X10*3/uL (0.1-1.2); Monocytes Percent Auto 7.5 % (2-11); Neutrophils Absolute Auto 4.4 x10*3/uL (2.0-8.3); Neutrophils Percent Auto 69.9 % (45-73); Platelet Count 160 X10*3/uL (160-400); Red Blood Count 3.49 X10*6/uL (4.20-5.50); Red Cell Distribution Width 14.3 % (11.0-16.0); White Blood Count 6.2 X10*3/uL (4.8-10.8)
[2024-07-14 06:52] LABS: Anion Gap 10 (12-20); Blood Urea Nitrogen 30 mg/dL (9-16); Calcium 8.7 mg/dL (8.4-10.2); Carbon Dioxide 25 mmol/L (22-29); Chloride 107 mmol/L (96-108); Creatinine Clr Calc Pharmacy 46.2; Estimated Glomerular Filt Rate 59; Glucose Fasting 103 mg/dL (60-99); Potassium 4.2 mmol/L (3.3-5.1); Sodium 138 mmol/L (135-145)
[2024-07-14] MEDS: oxyCODONE HCl ER 10 MG TAB.ER.12H PO (07:22)
[2024-07-14] MEDS: methocarbamoL 500 MG TABLET PO (07:22)
[2024-07-14] MEDS: Acetaminophen 325 MG TABLET 650 MG PO (07:23)
[2024-07-14] MEDS: Aspirin 325 MG TABLET PO (07:23)
[2024-07-14] MEDS: Celecoxib 200 MG CAPSULE PO (07:23)
--- NOTE | 2024-07-14 07:36 | PM.PNORT ---
Subjective Subjective Date of Service: 07/14/24 Interval history: POD2 s/p LTKA Patient is sitting at EOB working with therapy No overnight events Pain is managed No additional complaints Physical Exam Vital Signs: Vital Signs: Last Vital Signs Temp 97.8 F 07/14/24 02:54 Pulse 60 07/14/24 02:54 Resp 20 07/14/24 02:54 BP 144/63 H 07/14/24 02:54 Pulse Ox 95 07/14/24 02:54 O2 Del Method Room Air 07/14/24 02:54 O2 Flow Rate 6 07/12/24 13:11 BMI result Body Mass Index 35.3 Extrem: Other: left knee dressing is c/d/i. Able to dorsi/plantar flex. Calf is supple and nontender. Sensation intact. Pedal pulse intact. Procedures Date of Service Date of Service: 07/14/24 Progress Note: A&P Assessment and plan (1) Status post total knee replacement, left: Status: Acute Plan Continue pain mgmnt Continue ASA for dvt ppx Continue PT for LTKA - WBAT Dispo planning- PT, pain mgmnt, rehab placement - CM awaiting placement Time Spent With Patient Time: Total time managing care of this patient today ____ minutes. Quality Stroke Does the patient have a stroke diagnosis?: No VTE Prior VTE?: No VTE Risk Level:: Medical - moderate - high VTE Device Contraindication: N/A - Device Ordered VTE Drug Contraindication: N/A - Med Ordered
[2024-07-14 08:00] VITALS: BP 131/63; PULSE 65; RESP 18; TEMP 37; O2SAT 96
--- NOTE | 2024-07-14 10:56 | MHC.CM.PN ---
pt will be dc today at 12 to [facility]
[2024-07-14 12:00] VITALS: BP 129/58; PULSE 65; RESP 16; TEMP 36.1; O2SAT 96
== END 2024-07-14 12:07 | disposition skilled nursing facility (03) ==
LOC: HO.SSS 08:52 → HO.S3 10:11
PROVIDERS: Nurse Practitioner; Physician Assistant; PCP Family Medicine; Visit Provider Orthopaedic Surgery
PROC: (CPT 27447; principal; 2024-07-12 10:30)
DX: M17.12 Unilateral primary osteoarthritis, left knee (principal); M25.562 Pain in left knee; R26.2 Difficulty in walking, not elsewhere classified; M85.80 Other specified disorders of bone density and structure, unspecified site; M85.662 Other cyst of bone, left lower leg; Z91.81 History of falling; R73.03 Prediabetes; Z86.14 Personal history of Methicillin resistant Staphylococcus aureus infection; Z79.899 Other long term (current) drug therapy; Z96.651 Presence of right artificial knee joint; Z87.891 Personal history of nicotine dependence
CPT/HCPCS: 27447; 36415; 80048; 85025; 85027; 86850; 86900; 86901; 87640; 87641; 88305; 88311; 97110; 97116; 97161; C1776; J0131; J0665; J0690; J1100; J1171; J2003; J2250; J2371; J2405; J2704; J3370; J7120

== ENCOUNTER → 2024-07-12 08:39 | Outpatient (BNV) | payer MEDICARE, SELFPAY | PROVIDERS: PCP Family Medicine; Visit Provider Orthopaedic Surgery | DX: Z47.1 Aftercare following joint replacement surgery (principal); Z96.652 Presence of left artificial knee joint | CPT/HCPCS: 27447; 99024 ==

== ENCOUNTER 2024-07-19 09:21 | Outpatient (AMB) | payer MEDICARE, SELFPAY ==
--- NOTE | 2024-07-19 09:22 | MHC.OFFVIS ---
Intake Visit Reasons: PO L TKA w/ 07/12/24 Intake Note: Trice is a 88 year old female who presents today for a bandage change s/p Left TKA 07/12/24 Allergies No Known Allergies Allergy (Verified 07/12/24 09:26) HPI HPI PO L TKA w/DR 07/12/24: Details: Ms. Ji is an 88-year-old female status post left total knee arthroplasty with Dr. Lewis on 07/12/2024. Over this past weekend 1 of the nurses from [facility] judy jorge contacted the on-call service stating that the patient's dressing was saturated and weeping. The instruction was given to reinforce the dressing and to come in this morning for a dressing change. [facility] Medical History History of MRSA infection Heartburn Pre-diabetes Osteopenia Nonexudative age-related macular degeneration DJD (degenerative joint disease) Female bladder prolapse Arthritis Surgical History Hx of eye surgery Hx of tonsillectomy Hx of left cataract extraction History of esophagogastroduodenoscopy (EGD) H/O colonoscopy Hx of breast biopsy Hx of shoulder surgery History of total right knee replacement History of carpal tunnel release Social History Household Members: Spouse Housing: House Are you a primary manager medicare marketing to a significant other at home: No Do you presently have visiting nurse or other home services: No Alcohol intake: never Comment: advised of trip hazard Patient Tobacco Use Status: Former Tobacco user Tobacco use type: Cigarette Years Smoked: 10 Substance Use Type: Marijuana service: No Current occupational status: retired Review of Systems Const All systems reviewed & are unremarkable except as noted in HPI and below Physical Exam Const General: cooperative, healthy appearing and no acute distress Resp Effort & Inspection: normal respiratory effort and able to speak in complete sentences Extrem Other: Left knee incision site intact. Randy intact. Saturated dressing was removed. No surrounding erythema or drainage. No sign of infection. NVI. Assessment & Plan Assessment & Plan (1) Status post total knee replacement, left: Code(s): Z96.652 - Presence of left artificial knee joint Category: Surgical Plan While in the office today, the saturated dressing was removed. The incision site was gently cleaned with ChloraPrep. A new Aquacel dressing was placed over the incision site. If the patient should need further dressing change he will contact our office to do so. She will follow up at her normally scheduled follow-up appointment, sooner if needed. Coding Level of Care Code Global (76969) Diagnoses Status post total knee replacement, left Z96.652
--- OUTSIDE RECORDS SUMMARY | 2024-07-19 10:08 | XMS_ITS | Data Portability ---
Author Organization [facility], Main Office Address [address] [address] [place] [address] Care Team Providers Care Pick Up Worker Name Role Phone [facility] OTHER [facility] Primary Care Provider Assessment No assessment recorded. Plan of Treatment Reminders Order Date Submit Date Provider Last Modified By Organization Details Last Modified Time Details Appointments None record ed. Lab None record ed. Referral None record ed. Procedures None record ed. Surgeries None record ed. Imaging None record ed. Medication Orders None record ed. Patient TargetsNo targets recorded. Patient InstructionsNo instructions recorded. Reason for Referral None Reported. Problems Name Problem SNOMED Code Status Onset Date Resolution Date Notes Provider Name and Address Organization Details Recorded Time Prosthetic arthroplasty of knee joint Active 2024 Not Available [facility] 15:48:42 Aftercare Active 2024 Not Available [facility] 09:25:17 Osteoarthriti s of knee 720681691 Active 2024 Not Available [facility] 09:26:29 Muscle weakness 35925520 Active 2024 Not Available [facility] 15:26:29 Difficulty walking 553338305 Active 2024 Not Available [facility] 15:28:16 Problem Notes None recorded. Medical Equipment None Reported. Allergies No known drug allergies Medications Name Sig Start Date Stop Date Status Note LastModified by Organization Details LastModified Time celecoxib 200 mg capsule Give 1 capsule by mouth two times a day for pain 2024 active Not Available Not Available Not Avai lable methocarbam ol 500 mg tablet Give 500 mg by mouth three times a day for pain 2024 active Not Available Not Available Not Avai lable acetaminoph en 325 mg tablet Give 2 tablet by mouth every 6 hours as needed for mild pain 2024 active Not Available Not Available Not Avai lable aspirin 325 mg tablet Give 1 tablet by mouth in the morning for post op for 42 Days 08/26 completed Not Available Not Available Not Available Laxative (sennosides ) 8.6 mg tablet Give 1 tablet by mouth every 24 hours as needed for Constipat ion 2024 active Not Available Not Available Not Avai lable oxycodone 5 mg tablet Give 1 tablet by mouth every 4 hours as needed for pain 2024 active Not Available Not Available Not Avai lable Oyster Shell Calcium-Vit tarango D3 600 mg-5 mcg (200 unit) tablet Give 1 tablet by mouth two times a day for supplemen t 2024 active Not Available Not Available Not Avai lable gabapentin 100 mg tablet Give 100 mg by mouth at bedtime for pain 2024 active Not Available Not Available Not Avai lable sodium phosphates 19 gram-7 gram/197 mL enema Insert 1 unit rectally every 24 hours as needed for Constipat ion Use only if Bisacodyl Supposito ry is ineffecti ve 2024 active Not Available Not Available Not Avai lable OneLAX Bisacodyl 10 mg rectal suppository Insert 1 supposito ry rectally every 24 hours as needed for constipat ion Use if Senna is Ineffecti ve 2024 active Not Available Not Available Not Avai lable Vitals None Recorded Social History None recorded. Functional Status None recorded. Mental Status None recorded. Family History Nothing Reported. Medical History No medical history recorded. Gynecological HistoryNo gynecological history recorded. Obstetrics History GPAL:G 0 P 0 0 0 0 Immunizations Vaccine Type Date Status Note Provider Nam e and Address Organization Details Recorded Time Respiratory syncytial virus (RSV) MAB, unspecified 02/03/2023 completed Aramis herrera [facility] 07/16/2024 11:55:57 influenza, unspecified formulation 02/23/2019 completed Aramis herrera [facility] 07/16/2024 11:56:08 influenza, unspecified formulation 02/03/2021 completed Aramis Morrison null, [facility] 07/16/2024 11:56:14 influenza, unspecified formulation 12/23/2022 completed Aramis Morrison null, [facility] 07/16/2024 11:56:20 SARS-COV-2 (COVID-19) vaccine, UNSPECIFIED 01/16/2021 completed Aramis Morrison null, [facility] 07/16/2024 11:56:30 SARS-COV-2 (COVID-19) vaccine, UNSPECIFIED 07/16/2021 completed Aramis Morrison null, [facility] 07/16/2024 11:56:34 SARS-COV-2 (COVID-19) vaccine, UNSPECIFIED 12/23/2022 completed Aramis Morrison null, [facility] 07/16/2024 11:56:39 SARS-COV-2 (COVID-19) vaccine, UNSPECIFIED 07/21/2023 completed Aramis Morrison null, [facility] 07/16/2024 11:56:43 SARS-COV-2 (COVID-19) vaccine, UNSPECIFIED 11/13/2023 completed Aramis [facility], [facility] 07/16/2024 11:56:48 Past Encounters Encounter ID Performer Location Encounter Start Date Encounter Closed Date Diagnosis/Indication Diagnosis SNOMED-CT Code Diagnosis ICD10 Code Diagnosis Note [id number] ISREAL GRIMES [facility] [place] [address] 07/16/2024 09:06:32 07/16/2024 11:35:56 Osteoarthritis of knee 563678317 M17.9 sp left total kneecont calcium and vit d Follow-up status 9458600 05 Z51.89 sp left total kneeMethoc arbamol 500 mg tidgabapen tin 100 mg qhstylenol prn = does not want it scheduledd c oxycodone per pt requestasp rin 325 mg daily x 42 days post opadmit to PT OT Prediabetes 801623257 R7 3.03 monitor outpt Acute constipation 07558 9006 K59.00 had sm BM this amhad normal BM up until friday, now post opmonitor bowelsinit iate bowel protocol Bilateral sensation of blocked ears 7060206408 4292173 H93.8X3 no painwants to hold off on debrox and flush Health Concerns Section Related Observation LastModified by Organization Detai ls LastModified Time None Recorded Concern Status LastModified by Organization Details LastModified Time None Recorded Advance Directives Directive None Recorded Payers Encounter Date Sequence Insurance Name Policy Number Policy Wharton Covered Member ID Wharton Member ID Guarantor Name 07/16/2024 1 [employer] (MEDICARE REPLACEMENT PPO) [id number] [facility] [id number] [facility] Notes Date Note Type Note Provider Name and Address Organization Details Recorded Time 07/16/2024 text/html Pt is an 88 yo female being seen for initial intake visit. Pt underwent a left total knee dt OA. Surgery was uneventful and she was discharge to [place] for a STR stay. Pt seen and evaluated today. Feeling ears are foggy or blocked. She does not want oxy. She is managing well with pain. She is waiting for therapy to see her. SHe wants to know when she leaves. She has no other concerns. Ears are not painful. Lives alone with . Used a walker in the house and a cane outside. Limited PMH. KISHORE GRIMESC [address] [facility], [address], [place], [address], [facility] - [employer] 07/16/2024 11:35:55 OBGyn Episode No OBEpisode recorded.
--- OUTSIDE RECORDS SUMMARY | 2024-07-19 10:08 | XMS_ITS | Encounter Summary ---
Author Organization [facility] Address [address] [place] [address] Care Team Providers Care Seasoning Sprayer Name Role Phone Any Chu NP Primary Care Provider [phone] Encounter Details Date Type Department Care Team (Late st Contact Info) Description 07/15/2024 Lab Requisition [facility] - Main Lab [address] [place] [address] Ken Good MD [address] [facility] [address] [place], [address] Presence of left artificial knee joint Social History Tobacco Use Types Packs/Day Years [...] on file Sexual Orientation Not on file documented as of this encounter Plan of Treatment Not on file documented as of this encounter Procedures Procedure Name Priority Date/Time Associated Diagnosis Comments COMPLETE BLOOD COUNT Routine 07/15/2024 5:55 AM EDT Presence of left artificial knee joint COMPREHENSIVE METABOLIC PANEL Routine 07/15/2024 5:55 AM EDT Presence of left artificial knee joint documented in this encounter Results * (ABNORMAL) Comprehensive metabolic panel (07/15/2024 5:55 AM EDT) Sodium 138 133 - 145 mmol/L LAB CHEMISTRY METHOD 07/15/2024 9:27 AM EDT [facility] Potassium 4.5 3.5 - 5.5 mmol/L LAB CHEMISTRY METHOD 07/15/2024 9:27 AM [facility] Chloride 107 96 - 110 mmol/L LAB CHEMISTRY METHOD 07/15/2024 9:27 AM [facility] CO2 27 21 - 32 mmol/L LAB CHEMISTRY METHOD 07/15/2024 9:27 AM [facility] Anion Gap 4 3 - 11 LAB CHEMISTRY METHOD 07/15/2024 9:27 AM [facility] Glucose 89 70 - 100 mg/dL LAB CHEMISTRY METHOD 07/15/2024 9:27 AM [facility] BUN 21 5 - 25 mg/dL LAB CHEMISTRY METHOD 07/15/2024 9:27 AM [facility] Creatinine 0.75 0.50 - 1.10 mg/dL LAB CHEMISTRY METHOD 07/15/2024 9:27 AM [facility] eGFR 77 >=60 mL/min/1. 73m2 LAB CHEMISTRY METHOD 07/15/2024 9:27 AM [facility] Comment:Calculation based on the??Chronic Kidney Disease Epidemiology Collaboration (CKD-EPI) equation refit??without adjustment for race. BUN/Creatinine Ratio 28.0 LAB CHEMISTRY METHOD 07/15/2024 9:27 AM [facility] Calcium 8.7 8.5 - 10.5 mg/dL LAB CHEMISTRY METHOD 07/15/2024 9:27 AM [facility] AST (SGOT) 14 10 - 42 unit/L LAB CHEMISTRY METHOD 07/15/2024 9:27 AM [facility] ALT (SGPT) 13 10 - 60 unit/L LAB CHEMISTRY METHOD 07/15/2024 9:27 AM [facility] Alkaline Phosphatase 45 42 - 121 unit/L LAB CHEMISTRY METHOD 07/15/2024 9:27 AM [facility] Total Protein 5.6(L) 6.0 - 8.0 g/dL LAB CHEMISTRY METHOD 07/15/2024 9:27 AM EDT [facility] Albumin 2.7(L) 3.2 - 5.0 g/dL LAB CHEMISTRY METHOD 07/15/2024 9:27 AM T [facility] Total Bilirubin 0.4 0.0 - 1.4 mg/dL LAB CHEMISTRY METHOD 07/15/2024 9:27 AM EDT [facility] Blood Venous blood specimen / Unknown Venipuncture / Unknown 07/15/2024 5:55 AM EDT 07/15/2024 8:25 AM EDT us Ken Good MD LAB BLOOD ORDERABLES Final Resul t [facility] [address] [place] [address], [place] [phone] * (ABNORMAL) Complete blood count (07/15/2024 5:55 AM EDT) WBC 5.1 4.8 - 10.8 K/mcL LAB HEMETOLOGY METHOD 07/15/2024 8:46 AM [facility] RBC 3.50(L) 3.80 - 4.80 M/mcL LAB HEMETOLOGY METHOD 07/15/2024 8:46 AM [facility] Hemoglobin 9.9(L) 11.5 - 16.0 g/dL LAB HEMETOLOGY METHOD 07/15/2024 8:46 AM [facility] Hematocrit 31.8(L) 35.0 - 47.0 % LAB HEMETOLOGY METHOD 07/15/2024 8:46 AM [facility] MCV 91.1 79.0 - 98.0 FL LAB HEMETOLOGY METHOD 07/15/2024 8:46 AM [facility] MCH 28.4 27.0 - 32.0 pcg LAB HEMETOLOGY METHOD 07/15/2024 8:46 AM EDT [facility] MCHC 31.1(L) 32.0 - 37.0 g/dL LAB HEMETOLOGY METHOD 07/15/2024 8:46 AM EDT [facility] RDW 14.6 11.0 - 15.0 % LAB HEMETOLOGY METHOD 07/15/2024 8:46 AM EDT [facility] Platelets 190 130 - 400 K/mcL LAB HEMETOLOGY METHOD 07/15/2024 8:46 AM EDT [facility] MPV 12.1(H) 7.0 - 11.0 FL LAB HEMETOLOGY METHOD 07/15/2024 8:46 AM EDT [facility] NRBC 0.0 <1.0 % LAB HEMETOLOGY METHOD 07/15/2024 8:46 AM EDT [facility] NRBC Absolute 0.00 <0.10 K/mcL LAB HEMETOLOGY METHOD 07/15/2024 8:46 AM EDT [facility] Blood Venous blood specimen / Unknown Venipuncture / Unknown 07/15/2024 5:55 AM EDT 07/15/2024 8:25 AM EDT us Ken Good MD LAB BLOOD ORDERABLES Final Resul t [facility] [address] [place] [address], documented in this encounter Visit Diagnoses Diagnosis Presence of left artificial knee joint documented in this encounter Care Teams Seasoning Sprayer Relationship Specialty Start Date End Date Any Chu NP [address] [place] [address] PCP - General 08/14/22 documented as of this encounter
--- OUTSIDE RECORDS SUMMARY | 2024-07-19 10:08 | XMS_ITS | Clinical Summary ---
Author Organization [facility] Address [address] [place] [address] Care Team Providers Care Flight Crew Ordnanceman Name Role Phone Osman Wilkinson MD Primary Care Provider [phone] Allergies Active Allergy Reactions Criticality Noted Date [...] age to complete this topic Care Teams Flight Crew Ordnanceman Relationship Specialty Start Date End Date Osman Wilkinson MD [address] [address] PCP - General Internal Medicine 4/7/22
--- OUTSIDE RECORDS SUMMARY | 2024-07-19 10:08 | XMS_ITS | Encounter Summary ---
Author Organization [facility] Address [address] [place] [address] Care Team Providers Care Humane Officer Name Role Phone Any Chu NP Primary Care Provider [phone] Encounter Details Date Type Department Care Team (Late st Contact Info) Description 07/16/2024 Lab Requisition [facility] - Main Lab [address] [facility] [place] [address] Ken Good MD [address] [facility] [address] [place], [address] Presence of left artificial knee joint [...] as of this encounter Plan of Treatment Scheduled Orders Name Type Priority Associated Diagnoses Orde r Schedule Complete blood count Lab Routine Presence of left artificial knee joint Ordered: 07/16/2024 Basic metabolic panel Lab Routine Presence of left artificial knee joint Ordered: 07/16/2024 documented as of this encounter Visit Diagnoses Diagnosis Presence of left artificial knee joint documented in this encounter Care Teams Humane Officer Relationship Specialty Start Date End Date Any Chu NP [address] [place] [address] PCP - General 08/14/22 documented as of this encounter
--- OUTSIDE RECORDS SUMMARY | 2024-07-19 10:08 | XMS_ITS | Clinical Summary ---
Author Organization [facility] Address [address] [place] [address] Care Team Providers Care Mutuel Cashier Name Role Phone Osman Wilkinson Primary Care Provider Allergies Active Allergy Reactions Criticality Noted Date Comments Pollen Extracts Unknown Low 11/01/2019 Medications bromfenac (XIBROM) 0.09 % ophthalmic solution 07/10/2018 Active prednisoLONE acetate (PRED FORTE) 1% ophthalmic suspension 07/10/2018 Active vitamins A,C,E-zinc-leana er 14,320226-200 ffpg-ut-xwwj capsule Take 1 capsule by mouth. Active [...] Info) Description 08/25/2024 1:15 PM EDT Follow-Up [facility] [address] [address] Dunia Walls MD [address] [place], [place] [phone] Health Maintenance Due Date Last Done Comments [...] this topic Insurance [employer] MCR Care Teams Mutuel Cashier Relationship Specialty Start Date End Date Osman Wilkinson [address] [place] [address] PCP - General Internal Medicine 08/21/18
--- OUTSIDE RECORDS SUMMARY | 2024-07-19 10:08 | XMS_ITS | Encounter Summary ---
Author Organization [facility] Address [address] [place] [address] Care Team Providers Care Superintendent Plant Protection Name Role Phone Unknown Primary Care Provider [phone] Encounter Details Date Type Department Care Team (Late st Contact Info) Description 05/30/2020 5:46 PM EDT Hospital Encounter [facility] [address] [place] [address] Bonnie Babb PA [address] [facility] [address] [place] [address] Social History Tobacco Use Types Packs/Day Years [...] on filedocumented in this encounter Care Teams Superintendent Plant Protection Relationship Specialty Start Date End Date Unknown Unknow Provider Address PCP - General 05/30/20 07/06/20 documented as of this encounter
--- OUTSIDE RECORDS SUMMARY | 2024-07-19 10:08 | XMS_ITS | Clinical Summary ---
Author Organization [facility] Address [address] [place] [address] Care Team Providers Care Bevel Face Stoner And Polisher Name Role Phone Osman Wilkinson MD Primary Care Provider [phone] Allergies No known active allergies Medications diclofenac [...] Vaccine 10/16/2023 12/23/2022, , 02/23/2019 COVID-19 Vaccine ( season) 2023 12/23/2022, 07/09/2022, 01/12/2022, Additional history exists Hepatitis B Vaccines Aged Out No long er eligible based on patient's age to complete this topic Insurance MEDICARE PART A & B MEDICARE PART A & B [employer] MGD MEDICARE Care Teams Bevel Face Stoner And Polisher Relationship Specialty Start Date End Date Osman Wilkinson MD [address] [place] [address] PCP - General 07/07/20
--- OUTSIDE RECORDS SUMMARY | 2024-07-19 10:08 | XMS_ITS | Clinical Summary ---
Author Organization [address] Address [address] [place] [address] Phone Care Team Providers Care Adobe Developer Name Role Phone Any Chu NP Primary Care Provider Allergies Active Allergy Reactions [...] Encounters Date Type Department Care Team Description 07/16/[address] [facility] - Main Lab [address] [place] [address] Ken Good MD Presence of left artificial knee joint 07/15/[address] [facility] - Main Lab [address] [place] [address] Ken Good MD Presence of left artificial knee joint 05/20/2024 9:00 AM EST Office Visit Gastroenterology - [address] [place] [address] Dena Gutierrez PA Fecal smearing (Primary Dx) from Last 3 Months Surgical History Surgery Date Site/Laterality Comments TOTAL KNEE ARTHROPLASTY PROCEDURE: DE ARTHRP KNE CONDYLE&PLATU MEDIAL&LAT COMPARTMENTS TONSILLECTOMY ADENOIDECTOMY, BILATERAL MYRINGOTOMY AND TUBES PROCEDURE: DE TONSILLECTOMY & ADENOIDECTOMY <AGE 12 SHOULDER SURGERY [...] 09/25/1985 Zoster Vaccines (1 of 2) 09/25/1985 Depression Screening 02/22/2022 Falls Risk Assessment 02/22/2022 Medicare Annual Wellness Visit 02/22/2022 Osteoporosis Screening (Bone Density Screening) 02/22/2022 Social Influencers of Health Screening 02/22/2022 COVID-19 Vaccine ( season) 2024 11/13/2023, 07/21/2023, 12/23/2022, Additional history exists Influenza Vaccine (Season Ended) 2024 12/23/2022, 02/03/2021, 02/23/2019 RSV Immunization Adult Patients Completed 02/03/2023 HIB Vaccines Aged Out No longer eligi [...] on patient's age to complete this topic Procedures Procedure Name Priority Date/Time Associated Diagnosis Comments COMPREHENSIVE METABOLIC PANEL Routine 07/15/2024 5:55 AM EDT Presence of left artificial knee joint COMPLETE BLOOD COUNT Routine 07/15/2024 5:55 AM EDT Presence of left artificial knee joint from Last 3 Months Results * (ABNORMAL) Complete blood count (07/15/2024 5:55 AM EDT) WBC 5.1 4.8 - 10.8 K/[facility] LAB HEMETOLOGY METHOD 07/15/2024 8:46 AM EDT [facility] RBC 3.50(L) 3.80 - 4.80 M/[facility] LAB HEMETOLOGY METHOD 07/15/2024 8:46 AM EDT [facility] Hemoglobin 9.9(L) 11.5 - 16.0 g/dL LAB HEMETOLOGY METHOD 07/15/2024 8:46 AM EDT [facility] Hematocrit 31.8(L) 35.0 - 47.0 % LAB HEMETOLOGY METHOD 07/15/2024 8:46 AM EDT [facility] MCV 91.1 79.0 - 98.0 FL LAB HEMETOLOGY METHOD 07/15/2024 8:46 AM EDT [facility] MCH 28.4 27.0 - 32.0 pcg LAB HEMETOLOGY METHOD 07/15/2024 8:46 AM T [facility] MCHC 31.1(L) 32.0 - 37.0 g/dL LAB HEMETOLOGY METHOD 07/15/2024 8:46 AM [facility] RDW 14.6 11.0 - 15.0 % LAB HEMETOLOGY METHOD 07/15/2024 8:46 AM [facility] Platelets 190 130 - 400 K/mcL LAB HEMETOLOGY METHOD 07/15/2024 8:46 AM [facility] MPV 12.1(H) 7.0 - 11.0 FL LAB HEMETOLOGY METHOD 07/15/2024 8:46 AM [facility] NRBC 0.0 <1.0 % LAB HEMETOLOGY METHOD 07/15/2024 8:46 AM [facility] NRBC Absolute 0.00 <0.10 K/mcL LAB HEMETOLOGY METHOD 07/15/2024 8:46 AM [facility] Blood Venous blood specimen / Unknown Venipuncture / Unknown 07/15/2024 5:55 AM EDT 07/15/2024 8:25 AM EDT us Ken Good MD LAB BLOOD ORDERABLES Final Resul t [facility] [address] [place] [address], * (ABNORMAL) Comprehensive metabolic panel (07/15/2024 5:55 AM EDT) Sodium 138 133 - 145 mmol/L LAB CHEMISTRY METHOD 07/15/2024 9:27 AM [facility] Potassium 4.5 3.5 - 5.5 mmol/L LAB CHEMISTRY METHOD 07/15/2024 9:27 AM [facility] Chloride 107 96 - 110 mmol/L LAB CHEMISTRY METHOD 07/15/2024 9:27 AM [facility] CO2 27 21 - 32 mmol/L LAB CHEMISTRY METHOD 07/15/2024 9:27 AM [facility] Anion Gap 4 3 - 11 LAB CHEMISTRY METHOD 07/15/2024 9:27 AM [facility] Glucose 89 70 - 100 mg/dL LAB CHEMISTRY METHOD 07/15/2024 9:27 AM [facility] BUN 21 5 - 25 mg/dL LAB CHEMISTRY METHOD 07/15/2024 9:27 AM [facility] Creatinine 0.75 0.50 - 1.10 mg/dL LAB CHEMISTRY METHOD 07/15/2024 9:27 AM [facility] eGFR 77 >=60 mL/min/1. 73m2 LAB CHEMISTRY METHOD 07/15/2024 9:27 AM [facility] Comment:Calculation based on the??Chronic Kidney Disease Epidemiology Collaboration (CKD-EPI) equation refit??without adjustment for race. BUN/Creatinine Ratio 28.0 LAB CHEMISTRY METHOD 07/15/2024 9:27 AM [facility] Calcium 8.7 8.5 - 10.5 mg/dL LAB CHEMISTRY METHOD 07/15/2024 9:27 AM [facility] AST (SGOT) 14 10 - 42 unit/L LAB CHEMISTRY METHOD 07/15/2024 9:27 AM EDT [facility] ALT (SGPT) 13 10 - 60 unit/L LAB CHEMISTRY METHOD 07/15/2024 9:27 AM EDT [facility] Alkaline Phosphatase 45 42 - 121 unit/L LAB CHEMISTRY METHOD 07/15/2024 9:27 AM EDT [facility] Total Protein 5.6(L) 6.0 - 8.0 g/dL LAB CHEMISTRY METHOD 07/15/2024 9:27 AM EDT [facility] Albumin 2.7(L) 3.2 - 5.0 g/dL LAB CHEMISTRY METHOD 07/15/2024 9:27 AM EDT [facility] Total Bilirubin 0.4 0.0 - 1.4 mg/dL LAB CHEMISTRY METHOD 07/15/2024 9:27 AM EDT [facility] Blood Venous blood specimen / Unknown Venipuncture / Unknown 07/15/2024 5:55 AM EDT 07/15/2024 8:25 AM EDT us Ken Good MD LAB BLOOD ORDERABLES Final Resul t [facility] [address] [place] [address], from Last 3 Months Insurance [employer] MEDICARE ADVANTAGE AETNA Care Teams Adobe Developer Relationship Specialty Start Date End Date Any Chu NP [address] [place] [address] PCP - General 08/14/22
--- OUTSIDE RECORDS SUMMARY | 2024-07-19 10:08 | XMS_ITS | Referral Summary ---
Author Organization [facility] Address [address] [place] [address] Care Team Providers Care Historic Site Administrator Name Role Phone Osman Wilkinson Primary Care Provider Allergies Active Allergy Reactions Criticality Noted Date Comments Pollen Extracts Unknown Low 11/01/2019 Medications bromfenac (XIBROM) 0.09 % ophthalmic solution 07/10/2018 Active prednisoLONE acetate (PRED FORTE) 1% ophthalmic suspension 07/10/2018 Active vitamins A,C,E-zinc-leana er 14,320226-200 [id number]-lfsd capsule Take 1 capsule by mouth. Active [...] Info) Description 08/25/2024 1:15 PM EDT Follow-Up [facility] [address] [address] Dunia Walls MD [address] [place] [address] Insurance AETNA MCR Care Teams Historic Site Administrator Relationship Specialty Start Date End Date Osman Wilkinson [address] [address] PCP - General Internal Medicine 08/21/18
== END 2024-07-19 09:42 | disposition home or self-care (01) ==
LOC: HO.HOS 09:21
PROVIDERS: PCP Family Medicine; Visit Provider Physician Assistant
DX: Z96.652 Presence of left artificial knee joint (principal)
CPT/HCPCS: 99024

== ENCOUNTER → 2024-07-19 09:21 | Outpatient (BNVA) | payer MEDICARE, SELFPAY | PROVIDERS: PCP Family Medicine; Visit Provider Physician Assistant | DX: Z47.1 Aftercare following joint replacement surgery (principal); Z96.652 Presence of left artificial knee joint | CPT/HCPCS: 99212 ==

== ENCOUNTER 2024-07-29 12:05 | Outpatient (REF) | payer MEDICARE, SELFPAY ==
--- NOTE | ~2024-07-29 | XR_ITS ---
EXAMINATION: XR KNEE 3 VIEWS LEFT HISTORY: M25.569 - Pain in unspecified knee COMPARISON: Comparison is made with the prior examination dated 05/30/2023. FINDINGS: Standing AP views of both knees and additional lateral and sunrise patellar views of the left knee are submitted. The patient is status post total knee arthroplasty. The orthopedic elements are in anatomic alignment. Postoperative changes are noted in the soft tissues. The patient is also status post right total knee arthroplasty. XR/XR knee LT 3V IMPRESSION: Status post left total knee arthroplasty. Electronically signed by: Lonny Trevino MD 07/29/2024 03:33 PM EDT
--- OUTSIDE RECORDS SUMMARY | 2024-08-02 12:37 | XMS_ITS | Clinical Summary ---
Author Organization [facility] Address [address] [place] [address] Care Team Providers Care Substance Addiction Coordinator Name Role Phone Osman Wilkinson MD Primary Care Provider [phone] Allergies Active Allergy Reactions Criticality Noted Date [...] age to complete this topic Care Teams Substance Addiction Coordinator Relationship Specialty Start Date End Date Osman Wilkinson MD [address] [address] PCP - General Internal Medicine 4/7/22
--- OUTSIDE RECORDS SUMMARY | 2024-08-02 12:37 | XMS_ITS | Clinical Summary ---
Author Organization [facility] 299 [facility] Address [address] [place] [address] Phone Care Team Providers Care Sap Specialist Name Role Phone Any Chu NP Primary Care Provider [phone] Allergies Active Allergy Reactions Criticality Noted Date [...] Department Care Team Description 07/24/2024 Lab Requisition [facility] - Main Lab [address] [place] [address] Ken Good MD Presence of left artificial knee joint 07/16/2024 Lab Requisition [facility] Main Lab [address] [place] [address] Ken Good MD Presence of left artificial knee joint 07/15/2024 Lab Requisition [facility] Main Lab [address] [place] [address] Ken Good MD Presence of left artificial knee joint 05/20/2024 9:00 AM EST Office Visit Gastroenterology - [address] [facility] [address] [place] [address] Dena Gutierrez PA Fecal smearing (Primary Dx) from Last 3 Months Surgical History Surgery Date Site/Laterality Comments TOTAL KNEE ARTHROPLASTY PROCEDURE: LA ARTHRP KNE CONDYLE&PLATU MEDIAL&LAT COMPARTMENTS TONSILLECTOMY ADENOIDECTOMY, BILATERAL MYRINGOTOMY AND TUBES PROCEDURE: LA TONSILLECTOMY & ADENOIDECTOMY <AGE 12 SHOULDER SURGERY [...] K/mcL LAB HEMETOLOGY METHOD 07/19/2024 1:09 PM [facility] RBC 4.00 3.80 - 4.80 M/mcL LAB HEMETOLOGY [facility] Hemoglobin 11.3(L) 11.5 - 16.0 g/dL LAB HEMETOLOGY METHOD 07/19/2024 1:09 PM [facility] Hematocrit 36.9 35.0 - 47.0 % LAB HEMETOLOGY METHOD 07/19/2024 1[facility] MCV 92.0 79.0 - 98.0 FL LAB HEMETOLOGY METHOD 07/19/2024 1[facility] MCH 28.2 27.0 - 32.0 pcg LAB HEMETOLOGY METHOD 07/19/2024 1:09 PM [facility] MCHC 30.6(L) 32.0 - 37.0 g/dL LAB HEMETOLOGY METHOD 07/19/2024 1:09 PM [facility] RDW 14.3 11.0 - 15.0 % LAB HEMETOLOGY METHOD 07/19/2024 1:09 PM [facility] Platelets 307 130 - 400 K/mcL LAB HEMETOLOGY METHOD 07/19/2024 1:09 PM [facility] MPV 11.1(H) 7.0 - 11.0 FL LAB HEMETOLOGY METHOD 07/19/2024 [facility] NRBC 0.0 <1.0 % LAB HEMETOLOGY METHOD 07/19/2024 1:09 PM EDT [facility] NRBC Absolute 0.00 <0.10 K/mcL LAB HEMETOLOGY METHOD 07/19/2024 1:09 PM [facility] Blood Venous blood specimen / Unknown Venipuncture / Unknown 07/19/2024 7:00 AM EDT 07/19/2024 11:18 AM EDT us Ken Good MD LAB BLOOD ORDERABLES Final Resul t [facility] [address] [place] [address], * Basic metabolic panel (07/19/2024 7:00 AM EDT) Sodium 141 133 - 145 mmol/L LAB CHEMISTRY METHOD 07/19/2024 12:46 PM [facility] Potassium 4.1 3.5 - 5.5 mmol/L LAB CHEMISTRY METHOD 07/19/2024 12:46 PM [facility] Chloride 105 96 - 110 mmol/L LAB CHEMISTRY METHOD 07/19/2024 12:46 PM [facility] CO2 28 21 - 32 mmol/L LAB CHEMISTRY METHOD 07/19/2024 12:46 PM [facility] Anion Gap 8 3 - 11 LAB CHEMISTRY METHOD 07/19/2024 12:46 PM [facility] Glucose 90 70 - 100 mg/dL LAB CHEMISTRY METHOD 07/19/2024 12:46 PM [facility] BUN 16 5 - 25 mg/dL LAB CHEMISTRY METHOD 07/19/2024 12:46 PM [facility] Creatinine 0.70 0.50 - 1.10 mg/dL LAB CHEMISTRY METHOD 07/19/2024 12:46 PM [facility] eGFR 83 >=60 mL/min/1. 73m2 LAB CHEMISTRY METHOD 07/19/2024 12:46 PM EDT [facility] Comment:Calculation based on the??Chronic Kidney Disease Epidemiology Collaboration (CKD-EPI) equation refit??without adjustment for race. BUN/Creatinine Ratio 22.9 LAB CHEMISTRY METHOD 07/19/2024 12:46 PM EDT [facility] Calcium 9.1 8.5 - 10.5 mg/dL LAB CHEMISTRY METHOD 07/19/2024 12:46 PM EDT [facility] Blood Venous blood specimen / Unknown Venipuncture / Unknown 07/19/2024 7:00 AM EDT 07/19/2024 11:18 AM EDT us Ken Good MD LAB BLOOD ORDERABLES Final Resul t [facility] [address] [place] [address], * (ABNORMAL) Comprehensive metabolic panel (07/15/2024 5:55 AM EDT) Sodium 138 133 - 145 mmol/L LAB CHEMISTRY METHOD 07/15/2024 9:27 AM [facility] Potassium 4.5 3.5 - 5.5 [...] g/dL LAB CHEMISTRY METHOD 07/15/2024 9:27 AM [facility] Albumin 2.7(L) 3.2 - 5.0 g/dL LAB CHEMISTRY METHOD 07/15/2024 9:27 AM [facility] Total Bilirubin 0.4 0.0 - 1.4 mg/dL LAB CHEMISTRY METHOD 07/15/2024 9:27 AM [facility] Blood Venous blood specimen / Unknown Venipuncture / Unknown 07/15/2024 5:55 AM EDT 07/15/2024 8:25 AM EDT us Ken Good MD LAB BLOOD ORDERABLES Final Resul t [facility] [address] [place] [address], from Last 3 Months Insurance A[employer] MEDICARE ADVANTAGE A[employer] Care Teams Sap Specialist Relationship Specialty Start Date End Date Any Chu NP [address] [place] [address] PCP - General 08/14/22
--- OUTSIDE RECORDS SUMMARY | 2024-08-02 12:37 | XMS_ITS | Encounter Summary ---
Author Organization [facility] Address [address] [place] [address] Care Team Providers Care Test Equipment Mechanic Name Role Phone Any Chu NP Primary Care Provider [phone] Encounter Details Date Type Department Care Team (Late st Contact Info) Description 07/24/2024 Lab Requisition [facility] - Main Lab [address] [facility] [place] [address] Ken Good MD 38 [facility] [address] [place], [address] Presence of left artificial knee joint [...] joint documented in this encounter Care Teams Test Equipment Mechanic Relationship Specialty Start Date End Date Any Chu NP [address] [place] [address] PCP - General 08/14/22 documented as of this encounter
--- OUTSIDE RECORDS SUMMARY | 2024-08-02 12:37 | XMS_ITS | Clinical Summary ---
Author Organization [facility] Address [address] [place] [address] Care Team Providers Care Cost Control Supervisor Name Role Phone Osman Wilkinson Primary Care Provider Allergies Active Allergy Reactions Criticality Noted Date Comments Pollen Extracts Unknown Low 11/01/2019 Medications bromfenac (XIBROM) 0.09 % ophthalmic solution 07/10/2018 Active prednisoLONE acetate (PRED FORTE) 1% ophthalmic suspension 07/10/2018 Active vitamins A,C,E-zinc-leana er 14,320226-200 zvar-bh-rpuv capsule Take 1 capsule by mouth. Active [...] Info) Description 08/25/2024 1:15 PM EDT Follow-Up [facility] Eye [address] [address] Dunia Walls MD [address] [place], [place] [id number] Health Maintenance Due Date Last Done Comments [...] this topic Insurance [employer] MCR Care Teams Cost Control Supervisor Relationship Specialty Start Date End Date Osman Wilkinson [address] [place] [address] PCP - General Internal Medicine 08/21/18
--- OUTSIDE RECORDS SUMMARY | 2024-08-02 12:37 | XMS_ITS | Referral Summary ---
Author Organization [facility] Address [address] [place] [address] Care Team Providers Care Checker Dump Grounds Name Role Phone Osman Wilkinson Primary Care Provider Allergies Active Allergy Reactions Criticality Noted Date Comments Pollen Extracts Unknown Low 11/01/2019 Medications bromfenac (XIBROM) 0.09 % ophthalmic solution 07/10/2018 Active prednisoLONE acetate (PRED FORTE) 1% ophthalmic suspension 07/10/2018 Active vitamins A,C,E-zinc-leana er 14,320226-200 geer-sp-rsnu capsule Take 1 capsule by mouth. Active [...] Info) Description 08/25/2024 1:15 PM EDT Follow-Up [facility] [address] [address] Dunia Walls MD [address] [place] [address] Insurance AET[employer] MCR Care Teams Checker Dump Grounds Relationship Specialty Start Date End Date Osman Wilkinson [address] [address] PCP - General Internal Medicine 08/21/18
--- OUTSIDE RECORDS SUMMARY | 2024-08-02 12:37 | XMS_ITS | Encounter Summary ---
Author Organization [facility] Address [address] [place] [address] Care Team Providers Care Pourer Buggy Ladle Name Role Phone Any Chu NP Primary Care Provider [phone] Encounter Details Date Type Department Care Team (Late st Contact Info) Description 07/15/2024 Lab Requisition [facility] - Main Lab [address] [place] [address] Ken Good MD 38 [facility] [address] [place], [address] Presence of left artificial knee joint [...] CHEMISTRY METHOD 07/15/2024 9:27 AM EDT [facility] Potassium 4.5 3.5 - 5.5 mmol/L LAB CHEMISTRY METHOD 07/15/2024 9:27 AM [facility] Chloride 107 96 - 110 mmol/L LAB CHEMISTRY METHOD 07/15/2024 9:27 AM [facility] CO2 27 21 - 32 mmol/L LAB CHEMISTRY METHOD 07/15/2024 9:27 AM [facility] Anion Gap 4 3 - 11 LAB CHEMISTRY METHOD 07/15/2024 9:27 AM [facility] Glucose 89 70 - 100 mg/dL LAB CHEMISTRY METHOD 07/15/2024 9:27 AM [facility] BUN 21 5 - 25 mg/dL LAB CHEMISTRY METHOD 07/15/2024 9:27 AM [facility] Creatinine 0.75 0.50 - 1.10 mg/dL LAB CHEMISTRY METHOD 07/15/2024 9:27 AM [facility] eGFR 77 >=60 mL/min/1. 73m2 LAB CHEMISTRY METHOD 07/15/2024 9:27 AM [facility] LAB Comment:Calculation based on the??Chronic Kidney Disease Epidemiology Collaboration (CKD-EPI) equation refit??without adjustment for race. BUN/Creatinine Ratio 28.0 LAB CHEMISTRY METHOD 07/15/2024 9:27 AM [facility] Calcium 8.7 8.5 - 10.5 mg/dL LAB CHEMISTRY METHOD 07/15/2024 9:27 AM [facility] AST (SGOT) 14 10 - 42 unit/L LAB CHEMISTRY METHOD 07/15/2024 9:27 AM [facility] ALT (SGPT) 13 10 - 60 unit/L LAB CHEMISTRY METHOD 07/15/2024 9:27 AM [facility] Alkaline Phosphatase 45 42 - 121 unit/L LAB CHEMISTRY METHOD 07/15/2024 9:27 AM [facility] Total Protein 5.6(L) 6.0 - 8.0 g/dL LAB CHEMISTRY METHOD 07/15/2024 9:27 AM EDT [facility] Albumin 2.7(L) 3.2 - 5.0 g/dL LAB CHEMISTRY METHOD 07/15/2024 9:27 AM T [facility] Total Bilirubin 0.4 0.0 - 1.4 mg/dL LAB CHEMISTRY METHOD 07/15/2024 9:27 AM EDT [facility] Blood Venous blood specimen / Unknown Venipuncture / Unknown 07/15/2024 5:55 AM EDT 07/15/2024 8:25 AM EDT us Ken Good MD LAB BLOOD ORDERABLES Final Resul t [facility] [address] [place] [address], [place] [phone] * (ABNORMAL) Complete blood count (07/15/2024 5:55 AM EDT) WBC 5.1 4.8 - 10.8 K/mcL LAB HEMETOLOGY METHOD 07/15/2024 8:46 AM [facility] RBC 3.50(L) 3.80 - 4.80 M/mcL LAB HEMETOLOGY METHOD 07/15/2024 8:46 AM [facility] Hemoglobin 9.9(L) 11.5 - 16.0 g/dL LAB HEMETOLOGY METHOD 07/15/2024 8:46 AM [facility] Hematocrit 31.8(L) 35.0 - 47.0 % LAB HEMETOLOGY METHOD 07/15/2024 8:46 AM [facility] MCV 91.1 79.0 - 98.0 FL LAB HEMETOLOGY METHOD 07/15/2024 8:46 AM [facility] MCH 28.4 27.0 - 32.0 pcg LAB HEMETOLOGY METHOD 07/15/2024 8:46 AM EDT [facility] MCHC 31.1(L) 32.0 - 37.0 g/dL LAB HEMETOLOGY METHOD 07/15/2024 8:46 AM EDT [facility] RDW 14.6 11.0 - 15.0 % LAB HEMETOLOGY METHOD 07/15/2024 8:46 AM EDT [facility] Platelets 190 130 - 400 K/mcL LAB HEMETOLOGY METHOD 07/15/2024 8:46 AM EDT [facility] MPV 12.1(H) 7.0 - 11.0 FL LAB HEMETOLOGY METHOD 07/15/2024 8:46 AM EDT [facility] NRBC 0.0 <1.0 % LAB HEMETOLOGY METHOD 07/15/2024 8:46 AM EDT [facility] NRBC Absolute 0.00 <0.10 K/mcL LAB HEMETOLOGY METHOD 07/15/2024 8:46 AM EDT [facility] Blood Venous blood specimen / Unknown Venipuncture / Unknown 07/15/2024 5:55 AM EDT 07/15/2024 8:25 AM EDT us Ken Good MD LAB BLOOD ORDERABLES Final Resul t [facility] [address] [place] [address], documented in this encounter Visit Diagnoses Diagnosis Presence of left artificial knee joint documented in this encounter Care Teams Pourer Buggy Ladle Relationship Specialty Start Date End Date Any Chu NP [address] [place] [address] PCP - General 08/14/22 documented as of this encounter
--- OUTSIDE RECORDS SUMMARY | 2024-08-02 12:37 | XMS_ITS | Encounter Summary ---
Author Organization [facility] Address [address] [place] [address] Care Team Providers Care Robotics Technologist Name Role Phone Any Chu NP Primary Care Provider [phone] Encounter Details Date Type Department Care Team (Late st Contact Info) Description 07/16/2024 Lab Requisition [facility] - Main Lab [address] [place] [address] Ken Good MD 38 [facility] [address] [place], [address] Presence of left artificial knee joint [...] LAB CHEMISTRY METHOD 07/19/2024 12:46 PM EDT [facility] Potassium 4.1 3.5 - 5.5 mmol/L LAB CHEMISTRY METHOD 07/19/2024 12:46 PM [facility] Chloride 105 96 - 110 mmol/L LAB CHEMISTRY METHOD 07/19/2024 12:46 PM [facility] CO2 28 21 - 32 mmol/L LAB CHEMISTRY METHOD 07/19/2024 12:46 PM [facility] Anion Gap 8 3 - 11 LAB CHEMISTRY METHOD 07/19/2024 12:46 PM [facility] Glucose 90 70 - 100 mg/dL LAB CHEMISTRY METHOD 07/19/2024 12:46 PM [facility] BUN 16 5 - 25 mg/dL LAB CHEMISTRY METHOD 07/19/2024 12:46 PM [facility] Creatinine 0.70 0.50 - 1.10 mg/dL LAB CHEMISTRY METHOD 07/19/2024 12:46 PM [facility] eGFR 83 >=60 mL/min/1. 73m2 LAB CHEMISTRY METHOD 07/19/2024 12:46 PM [facility] Comment:Calculation based on the??Chronic Kidney Disease Epidemiology Collaboration (CKD-EPI) equation refit??without adjustment for race. BUN/Creatinine Ratio 22.9 LAB CHEMISTRY METHOD 07/19/2024 12:46 PM [facility] Calcium 9.1 8.5 - 10.5 mg/dL LAB CHEMISTRY METHOD 07/19/2024 12:46 PM [facility] Blood Venous blood specimen / Unknown Venipuncture / Unknown 07/19/2024 7:00 AM EDT 07/19/2024 11:18 AM EDT us Ken Good MD LAB BLOOD ORDERABLES Final Resul t [facility] [address] [place] [address], [place] [phone] * (ABNORMAL) Complete blood count (07/19/2024 7:00 AM EDT) [facility] WBC 6.0 4.8 - 10.8 K/mcL LAB HEMETOLOGY METHOD 07/19/2024 1:09 PM [facility] RBC 4.00 3.80 - 4.80 M/mcL LAB HEMETOLOGY METHOD 07/19/2024 1:09 PM [facility] Hemoglobin 11.3(L) 11.5 - 16.0 g/dL LAB HEMETOLOGY METHOD 07/19/2024 1:09 PM [facility] Hematocrit 36.9 35.0 - 47.0 % LAB HEMETOLOGY METHOD 07/19/2024 1:09 PM [facility] MCV 92.0 79.0 - 98.0 FL LAB HEMETOLOGY METHOD 07/19/2024 1:09 PM [facility] MCH 28.2 27.0 - 32.0 pcg LAB HEMETOLOGY METHOD 07/19/2024 1:09 PM [facility] MCHC 30.6(L) 32.0 - 37.0 g/dL LAB HEMETOLOGY METHOD 07/19/2024 1:09 PM [facility] RDW 14.3 11.0 - 15.0 % LAB HEMETOLOGY METHOD 07/19/2024 1:09 PM [facility] Platelets 307 130 - 400 K/mcL LAB HEMETOLOGY METHOD 07/19/2024 1:09 PM [facility] MPV 11.1(H) 7.0 - 11.0 FL LAB HEMETOLOGY METHOD 07/19/2024 1:09 PM [facility] NRBC 0.0 <1.0 % LAB HEMETOLOGY METHOD 07/19/2024 1:09 PM [facility] NRBC Absolute 0.00 <0.10 K/mcL LAB HEMETOLOGY METHOD 07/19/2024 1:09 PM EDT [facility] Blood Venous blood specimen / Unknown Venipuncture / Unknown 07/19/2024 7:00 AM EDT 07/19/2024 11:18 AM EDT us Ken Good MD LAB BLOOD ORDERABLES Final Resul t [facility] [address] [place] [address], documented in this encounter Visit Diagnoses Diagnosis Presence of left artificial knee joint documented in this encounter Care Teams Robotics Technologist Relationship Specialty Start Date End Date Any Chu NP [address] [place] [address] PCP - General 08/14/22 documented as of this encounter
--- OUTSIDE RECORDS SUMMARY | 2024-08-02 12:37 | XMS_ITS | Clinical Summary ---
Author Organization [facility] Address [address] [place] [address] Care Team Providers Care Marine Equipment Design Engineer Name Role Phone Osman Wilkinson MD Primary Care Provider [phone] Allergies No known active allergies Medications diclofenac [...] & B [employer]ET[employer] MGD MEDICARE Care Teams Marine Equipment Design Engineer Relationship Specialty Start Date End Date Osman Wilkinson MD [address] [place] [address] PCP - General 07/07/20
--- OUTSIDE RECORDS SUMMARY | 2024-08-02 12:37 | XMS_ITS | Encounter Summary ---
Author Organization [facility] Address [address] [place] [address] Care Team Providers Care Flute Polisher Name Role Phone Unknown Primary Care Provider [phone] Encounter Details Date Type Department Care Team (Late st Contact Info) Description 05/30/2020 5:46 PM EDT Hospital Encounter [facility] [address] [place] [address] Bonnie Babb PA [address] [facility] [address] [place] [address] Social History Tobacco Use Types Packs/Day Years [...] on filedocumented in this encounter Care Teams Flute Polisher Relationship Specialty Start Date End Date Unknown Unknow Provider Address PCP - General 05/30/20 07/06/20 documented as of this encounter
== END 2024-07-29 12:06 | disposition home or self-care (01) ==
LOC: HO.HOSX 12:05
PROVIDERS: Visit Provider Physician Assistant
DX: M25.562 Pain in left knee (principal); Z96.652 Presence of left artificial knee joint
CPT/HCPCS: 73562

== ENCOUNTER 2024-07-29 13:25 | Outpatient (AMB) | payer OTHER, SELFPAY ==
--- NOTE | 2024-07-29 13:37 | A.OFFVIS_ITS ---
Intake Visit Reasons: 2WK PO: L TKA w/ 07/12/24 Intake Note: Gayle is a 88 year old female who presents today for a post operative appointment s/p left total knee arthroplasty 07/12/24 Patient reports she is having mild pain. She has a couple question about when she can stop certain medications like aspirin, celecoxib, gabapentin, methocarbamol and the calcium. Allergies No Known Allergies Allergy (Verified 07/29/24 13:45) HPI HPI 2WK PO: L TKA w/ 07/12/24: Details: Ms. Ji is an 88-year-old female who presents to the office today status post left total knee arthroplasty performed by Dr. Lewis on 07/12/2024. Overall the patient is doing very well. She is using a walker to assist with ambulation. [facility] Medical History History of MRSA infection Heartburn Pre-diabetes Osteopenia Nonexudative age-related macular degeneration DJD (degenerative joint disease) Female bladder prolapse Arthritis Surgical History Hx of eye surgery Hx of tonsillectomy Hx of left cataract extraction History of esophagogastroduodenoscopy (EGD) H/O colonoscopy Hx of breast biopsy Hx of shoulder surgery History of total right knee replacement History of carpal tunnel release Social History Household Members: Spouse Housing: House Are you a primary long term acute care registered nurse to a significant other at home: No Do you presently have visiting nurse or other home services: No Alcohol intake: never Comment: advised of trip hazard Patient Tobacco Use Status: Former Tobacco user Tobacco use type: Cigarette Years Smoked: 10 Substance Use Type: Marijuana service: No Current occupational status: retired Review of Systems Const All systems reviewed & are unremarkable except as noted in HPI and below Physical Exam Const General: cooperative, healthy appearing and no acute distress Resp Effort & Inspection: normal respiratory effort and able to speak in complete sentences Extrem Other: Left knee incision site is clean dry and intact. Noble intact. No surrounding erythema or drainage. No signs of infection. Range of motion is 10-90 degrees. NVI. Assessment & Plan Assessment & Plan (1) Status post total knee replacement, left: Code(s): Z96.652 - Presence of left artificial knee joint Category: Surgical Plan Ms. Ji is an 88-year-old female who presents to the office today status post left total knee arthroplasty performed by Dr. Lewis on 07/12/2024. Overall the patient is doing very well. She is using a walker to assist with ambulation. While in the office today, we discussed her postoperative prescriptions. She may discontinue the gabapentin and methocarbamol. I recommended that she continue taking the Celebrex to assist with inflammation. She should continue taking aspirin 325 mg by mouth twice a day for 6 weeks for DVT ppx. I will place an order for outpatient physical therapy at this time. She will follow up with Dr. Lewis in 4 weeks, sooner if needed. X-rays of the left knee which were obtained while in the office today and were reviewed by me, Jessica Saldivar PA-C, revealed intact left knee total arthroplasty with satisfactory alignment. Orders: Orders XR knee LT 3V Today M25.569 - Pain in unspecified knee Coding Level of Care Code Global (84857) Diagnoses Status post total knee replacement, left Z96.652
--- OUTSIDE RECORDS SUMMARY | 2024-07-29 14:02 | XMS_ITS | Clinical Summary ---
Author Organization [facility] Address [address] [place] [address] Care Team Providers Care Flight Control Manager Name Role Phone Osman Wilkinson Primary Care Provider [phone] Allergies Active Allergy Reactions Criticality Noted Date Comments Pollen Extracts Unknown Low 11/01/2019 Medications bromfenac (XIBROM) 0.09 % ophthalmic solution 07/10/2018 Active prednisoLONE acetate (PRED FORTE) 1% ophthalmic suspension 07/10/2018 Active vitamins A,C,E-zinc-leana er 14,320226-200 ypvi-ya-lhkr capsule Take 1 capsule by mouth. Active [...] Info) Description 08/25/2024 1:15 PM EDT Follow-Up [facility] [address] [address] Dunia Walls MD [address] [place], [place] [id number] Health Maintenance Due Date Last Done Comments [...] this topic Insurance AETNA MCR Care Teams Flight Control Manager Relationship Specialty Start Date End Date Osman Wilkinson [address] [place] [address] PCP - General Internal Medicine 08/21/18
--- OUTSIDE RECORDS SUMMARY | 2024-07-29 14:02 | XMS_ITS | Clinical Summary ---
Author Organization [facility] Address [address] [place] [address] Care Team Providers Care Shield Runner Name Role Phone Osman Wilkinson MD Primary Care Provider [phone] Allergies No known active allergies Medications diclofenac [...] Patients (1 - 1-dose 75+ series) 09/25/2010 COVID-19 Vaccine (2023- season) 2023 12/23/2022, 07/09/2022, 01/12/2022, Additional history exists Influenza Vaccine 10/15/2024 12/23/2022, , 02/23/2019 Hepatitis B Vaccines Aged Out No long er eligible based on patient's age to complete this topic Insurance MEDICARE PART A & B MEDICARE PART A & B AETNA MGD MEDICARE Care Teams Shield Runner Relationship Specialty Start Date End Date Osman Wilkinson MD [address] [place] [address] PCP - General 07/07/20
--- OUTSIDE RECORDS SUMMARY | 2024-07-29 14:02 | XMS_ITS | Encounter Summary ---
Author Organization [facility] Address [address] [place] [address] Care Team Providers Care Jump Iron Machine Presser Name Role Phone Any Chu NP Primary Care Provider [phone] Encounter Details Date Type Department Care Team (Late st Contact Info) Description 07/16/2024 Lab Requisition [facility] - Main Lab [address] [place] [address] Ken Good MD [address] [facility] [address] [place], [address] Presence of left artificial knee joint [...] Associated Diagnosis Comments COMPLETE BLOOD COUNT Routine 07/19/2024 7:00 AM EDT Presence of left artificial knee joint BASIC METABOLIC PANEL Routine 07/19/2024 7:00 AM EDT Presence of left artificial knee joint documented in this encounter Results * Basic metabolic panel (07/19/2024 7:00 AM EDT) Sodium 141 133 - 145 mmol/L LAB CHEMISTRY METHOD 07/19/2024 12:46 PM EDT [facility] Potassium 4.1 3.5 - 5.5 mmol/L LAB CHEMISTRY METHOD 07/19/2024 12:[address] [facility] Chloride 105 96 - 110 mmol/L LAB CHEMISTRY METHOD 07/19/2024 12:[address] [facility] CO2 28 21 - 32 mmol/L LAB CHEMISTRY METHOD 07/19/2024 12:[address] [facility] Anion Gap 8 3 - 11 LAB CHEMISTRY METHOD 07/19/2024 12:[address] [facility] Glucose 90 70 - 100 mg/dL LAB CHEMISTRY METHOD 07/19/2024 12:[address] [facility] BUN 16 5 - 25 mg/dL LAB CHEMISTRY METHOD 07/19/2024 12:[address] [facility] Creatinine 0.70 0.50 - 1.10 mg/dL LAB CHEMISTRY METHOD 07/19/2024 12:[address] [facility] eGFR 83 >=60 mL/min/1. 73m2 LAB CHEMISTRY METHOD 07/19/2024 12:[address] [facility] Comment:Calculation based on the??Chronic Kidney Disease Epidemiology Collaboration (CKD-EPI) equation refit??without adjustment for race. BUN/Creatinine Ratio 22.9 LAB CHEMISTRY METHOD 07/19/2024 12:[address] [facility] Calcium 9.1 8.5 - 10.5 mg/dL LAB CHEMISTRY METHOD 07/19/2024 12:[address] [facility] Blood Venous blood specimen / Unknown Venipuncture / Unknown 07/19/2024 7:00 AM EDT 07/19/2024 11:18 AM EDT us Ken Good MD LAB BLOOD ORDERABLES Final Resul t [facility] [address] [place] [address], [place] [phone] * (ABNORMAL) Complete blood count (07/19/2024 7:00 AM EDT) [facility] WBC 6.0 4.8 - 10.8 K/mcL LAB HEMETOLOGY METHOD 07/19/2024 1:[address] [facility] RBC 4.00 3.80 - 4.80 M/mcL LAB HEMETOLOGY METHOD 07/19/2024 1:[address] [facility] Hemoglobin 11.3(L) 11.5 - 16.0 g/dL LAB HEMETOLOGY METHOD 07/19/2024 1:[address] [facility] Hematocrit 36.9 35.0 - 47.0 % LAB HEMETOLOGY METHOD 07/19/2024 1:[address] [facility] MCV 92.0 79.0 - 98.0 FL LAB HEMETOLOGY METHOD 07/19/2024 1:[address] [facility] MCH 28.2 27.0 - 32.0 pcg LAB HEMETOLOGY METHOD 07/19/2024 1:[address] [facility] MCHC 30.6(L) 32.0 - 37.0 g/dL LAB HEMETOLOGY METHOD 07/19/2024 1:[address] [facility] RDW 14.3 11.0 - 15.0 % LAB HEMETOLOGY METHOD 07/19/2024 1:[address] [facility] Platelets 307 130 - 400 K/mcL LAB HEMETOLOGY METHOD 07/19/2024 1:[address] [facility] MPV 11.1(H) 7.0 - 11.0 FL LAB HEMETOLOGY METHOD 07/19/2024 1:[address] [facility] NRBC 0.0 <1.0 % LAB HEMETOLOGY METHOD 07/19/2024 1:[address] [facility] NRBC Absolute 0.00 <0.10 K/mcL LAB HEMETOLOGY METHOD 07/19/2024 1:09 PM EDT [facility] Blood Venous blood specimen / Unknown Venipuncture / Unknown 07/19/2024 7:00 AM EDT 07/19/2024 11:18 AM EDT us Ken Good MD LAB BLOOD ORDERABLES Final Resul t [facility] [address] [place] [address], documented in this encounter Visit Diagnoses Diagnosis Presence of left artificial knee joint documented in this encounter Care Teams Jump Iron Machine Presser Relationship Specialty Start Date End Date Any Chu NP [address] [place] [address] PCP - General 08/14/22 documented as of this encounter
--- OUTSIDE RECORDS SUMMARY | 2024-07-29 14:02 | XMS_ITS | Clinical Summary ---
Author Organization [facility] 299 [facility] Address [address] [place] [address] Phone Care Team Providers Care Humidifier Maintenance Worker Name Role Phone Any Chu NP Primary Care Provider [phone] Allergies Active Allergy Reactions Criticality Noted Date [...] Encounters Date Type Department Care Team Description 07/24/2024 Lab Requisition [facility] - Main Lab [address] [place] [address] Ken Good MD Presence of left artificial knee joint 07/16/2024 Lab Requisition [facility] Main Lab [address] [place] [address] Ken Good MD Presence of left artificial knee joint 07/15/2024 Lab Requisition [facility] Main Lab [address] [place] [address] Ken Good MD Presence of left artificial knee joint 05/20/2024 9:00 AM EST Office Visit Gastroenterology - [address] [facility] [address] [place] [address] Dena Gutierrez PA Fecal smearing (Primary Dx) from Last 3 Months Surgical History Surgery Date Site/Laterality Comments TOTAL KNEE ARTHROPLASTY PROCEDURE: NE ARTHRP KNE CONDYLE&PLATU MEDIAL&LAT COMPARTMENTS TONSILLECTOMY ADENOIDECTOMY, BILATERAL MYRINGOTOMY AND TUBES PROCEDURE: NE TONSILLECTOMY & ADENOIDECTOMY <AGE 12 SHOULDER SURGERY [...] Procedure Name Priority Date/Time Associated Diagnosis Comments BASIC METABOLIC PANEL Routine 07/19/2024 7:00 AM EDT Presence of left artificial knee joint COMPLETE BLOOD COUNT Routine 07/19/2024 7:00 AM EDT Presence of left artificial knee joint COMPREHENSIVE METABOLIC PANEL Routine 07/15/2024 5:55 AM EDT Presence of left artificial knee joint COMPLETE BLOOD COUNT Routine 07/15/2024 5:55 AM EDT Presence of left artificial knee joint from Last 3 Months Results * (ABNORMAL) Complete blood count (07/19/2024 7:00 AM EDT) Only the most recent of2 resultswithin the time period is included. WBC 6.0 4.8 - 10.8 K/mcL LAB HEMETOLOGY METHOD 07/19/2024 1:09 PM [facility] RBC 4.00 3.80 - 4.80 M/mcL LAB HEMETOLOGY [facility] Hemoglobin 11.3(L) 11.5 - 16.0 g/dL LAB HEMETOLOGY METHOD 07/19/2024 1:09 PM [facility] Hematocrit 36.9 35.0 - 47.0 % LAB HEMETOLOGY METHOD 07/19/2024 1[facility] MCV 92.0 79.0 - 98.0 FL LAB HEMETOLOGY METHOD 07/19/2024 1[facility] MCH 28.2 27.0 - 32.0 pcg LAB HEMETOLOGY METHOD 07/19/2024 1:09 PM [facility] MCHC 30.6(L) 32.0 - 37.0 g/dL LAB HEMETOLOGY METHOD 07/19/2024 1:09 PM [facility] RDW 14.3 11.0 - 15.0 % LAB HEMETOLOGY METHOD 07/19/2024 1:09 PM [facility] Platelets 307 130 - 400 K/mcL LAB HEMETOLOGY METHOD 07/19/2024 1:09 PM [facility] MPV 11.1(H) 7.0 - 11.0 FL LAB HEMETOLOGY METHOD 07/19[facility]2024 [facility] NRBC 0.0 <1.0 % LAB HEMETOLOGY METHOD 07/19/2024 1:09 PM EDT [facility] NRBC Absolute 0.00 <0.10 K/mcL LAB HEMETOLOGY METHOD 07/19/2024 1:09 PM [facility] Blood Venous blood specimen / Unknown Venipuncture / Unknown 07/19/2024 7:00 AM EDT 07/19/2024 11:18 AM EDT us Ken Good MD LAB BLOOD ORDERABLES Final Resul t [facility] [address] [place] [address], * Basic metabolic panel (07/19/2024 7:00 AM EDT) Sodium 141 133 - 145 mmol/L LAB CHEMISTRY METHOD 07/19/2024 12:46 PM [facility] Potassium 4.1 3.5 - 5.5 mmol/L LAB CHEMISTRY METHOD 07/19/2024 12:46 PM [facility] Chloride 105 96 - 110 mmol/L LAB CHEMISTRY METHOD 07/19/2024 12:46 PM [facility] CO2 28 21 - 32 mmol/L LAB CHEMISTRY METHOD 07/19/2024 12:46 PM [facility] Anion Gap 8 3 - 11 LAB CHEMISTRY METHOD 07/19/2024 12:46 PM [facility] Glucose 90 70 - 100 mg/dL LAB CHEMISTRY METHOD 07/19/2024 12:46 PM [facility] BUN 16 5 - 25 mg/dL LAB CHEMISTRY METHOD 07/19/2024 12:46 PM [facility] Creatinine 0.70 0.50 - 1.10 mg/dL LAB CHEMISTRY METHOD 07/19/2024 12:46 PM [facility] eGFR 83 >=60 mL/min/1. 73m2 LAB CHEMISTRY METHOD 07/19/2024 12:46 PM EDT [facility] Comment:Calculation based on the??Chronic Kidney Disease Epidemiology Collaboration (CKD-EPI) equation refit??without adjustment for race. BUN/Creatinine Ratio 22.9 LAB CHEMISTRY METHOD 07/19/2024 12:46 PM EDT [facility] Calcium 9.1 8.5 - 10.5 mg/dL LAB CHEMISTRY METHOD 07/19/2024 12:46 PM EDT [facility] Blood Venous blood specimen / Unknown Venipuncture / Unknown 07/19/2024 7:00 AM EDT 07/19/2024 11:18 AM EDT us Ken Good MD LAB BLOOD ORDERABLES Final Resul t [facility] [address] [place] [address], * (ABNORMAL) Comprehensive metabolic panel (07/15/2024 5:55 AM EDT) Sodium 138 133 - 145 mmol/L LAB CHEMISTRY METHOD 07/15/2024 9:27 AM [facility] Potassium 4.5 3.5 - 5.5 mmol/L LAB CHEMISTRY METHOD 07/15/2024 9:27 AM [facility] Chloride 107 96 - 110 mmol/L LAB CHEMISTRY METHOD 07/15/2024 9:27 AM [facility] CO2 27 21 - 32 mmol/L LAB CHEMISTRY METHOD 07/15/2024 9:27 AM [facility] Anion Gap 4 3 - 11 LAB CHEMISTRY METHOD 07/15/2024 9:27 AM [facility] Glucose 89 70 - 100 mg/dL LAB CHEMISTRY METHOD 07/15/2024 9:27 AM [facility] BUN 21 5 - 25 mg/dL LAB CHEMISTRY METHOD 07/15/2024 9:27 AM [facility] Creatinine 0.75 0.50 - 1.10 mg/dL LAB CHEMISTRY METHOD 07/15/2024 9:27 AM [facility] eGFR 77 >=60 mL/min/1. 73m2 LAB CHEMISTRY METHOD 07/15/2024 9:27 AM [facility] Comment:Calculation based on the??Chronic Kidney Disease Epidemiology Collaboration (CKD-EPI) equation refit??without adjustment for race. BUN/Creatinine Ratio 28.0 LAB CHEMISTRY METHOD 07/15/2024 9:27 AM [facility] Calcium 8.7 8.5 - 10.5 mg/dL LAB CHEMISTRY METHOD 07/15/2024 9:27 AM [facility] AST (SGOT) 14 10 - 42 unit/L LAB CHEMISTRY METHOD 07/15/2024 9:27 AM [facility] ALT (SGPT) 13 10 - 60 unit/L LAB CHEMISTRY METHOD 07/15/2024 9:27 AM [facility] Alkaline Phosphatase 45 42 - 121 unit/L LAB CHEMISTRY METHOD 07/15/2024 9:27 AM [facility] Total Protein 5.6(L) 6.0 - 8.0 g/dL LAB CHEMISTRY METHOD 07/15/2024 9:27 AM [facility] Albumin 2.7(L) 3.2 - 5.0 g/dL LAB CHEMISTRY METHOD 07/15/2024 9:27 AM [facility] Total Bilirubin 0.4 0.0 - 1.4 mg/dL LAB CHEMISTRY METHOD 07/15/2024 9:27 AM [facility] Blood Venous blood specimen / Unknown Venipuncture / Unknown 07/15/2024 5:55 AM EDT 07/15/2024 8:25 AM EDT us Ken Good MD LAB BLOOD ORDERABLES Final Resul t [facility] [address] [place] [address], from Last 3 Months Insurance A[employer] MEDICARE ADVANTAGE AETNA Care Teams Humidifier Maintenance Worker Relationship Specialty Start Date End Date Any Chu NP [address] [place] [address] PCP - General 08/14/22
--- OUTSIDE RECORDS SUMMARY | 2024-07-29 14:02 | XMS_ITS | Encounter Summary ---
Author Organization [facility] Address [address] [place] [address] Care Team Providers Care Biodiesel Plant Superintendent Name Role Phone Any Chu NP Primary Care Provider [phone] Encounter Details Date Type Department Care Team (Late st Contact Info) Description 07/15/2024 Lab Requisition [facility] - Main Lab [address] [place] [address] Ken Good MD 38 [facility] [address] [place], [address] Presence of left artificial knee joint [...] CHEMISTRY METHOD 07/15/2024 9:27 AM EDT [facility] Potassium 4.5 3.5 - 5.5 mmol/L LAB CHEMISTRY METHOD 07/15/2024 9:27 AM [facility] Chloride 107 96 - 110 mmol/L LAB CHEMISTRY METHOD 07/15/2024 9:27 AM [facility] CO2 27 21 - 32 mmol/L LAB CHEMISTRY METHOD 07/15/2024 9:27 AM [facility] Anion Gap 4 3 - 11 LAB CHEMISTRY METHOD 07/15/2024 9:27 AM [facility] Glucose 89 70 - 100 mg/dL LAB CHEMISTRY METHOD 07/15/2024 9:27 AM [facility] BUN 21 5 - 25 mg/dL LAB CHEMISTRY METHOD 07/15/2024 9:27 AM [facility] Creatinine 0.75 0.50 - 1.10 mg/dL LAB CHEMISTRY METHOD 07/15/2024 9:27 AM [facility] eGFR 77 >=60 mL/min/1. 73m2 LAB CHEMISTRY METHOD 07/15/2024 9:27 AM [facility] Comment:Calculation based on the??Chronic Kidney Disease Epidemiology Collaboration (CKD-EPI) equation refit??without adjustment for race. BUN/Creatinine Ratio 28.0 LAB CHEMISTRY METHOD 07/15/2024 9:27 AM [facility] Calcium 8.7 8.5 - 10.5 mg/dL LAB CHEMISTRY METHOD 07/15/2024 9:27 AM [facility] AST (SGOT) 14 10 - 42 unit/L LAB CHEMISTRY METHOD 07/15/2024 9:27 AM [facility] ALT (SGPT) 13 10 - 60 unit/L LAB CHEMISTRY METHOD 07/15/2024 9:27 AM [facility] Alkaline Phosphatase 45 42 - 121 unit/L LAB CHEMISTRY METHOD 07/15/2024 9:27 AM [facility] Total Protein 5.6(L) 6.0 - 8.0 g/dL LAB CHEMISTRY METHOD 07/15/2024 9:27 AM EDT [facility] Albumin 2.7(L) 3.2 - 5.0 g/dL LAB CHEMISTRY METHOD 07/15/2024 9:27 AM T [facility] Total Bilirubin 0.4 0.0 - 1.4 mg/dL LAB CHEMISTRY METHOD 07/15/2024 9:27 AM EDT [facility] Blood Venous blood specimen / Unknown Venipuncture / Unknown 07/15/2024 5:55 AM EDT 07/15/2024 8:25 AM EDT us Ken Good MD LAB BLOOD ORDERABLES Final Resul t [facility] [address] [place] [address], [place] [phone] * (ABNORMAL) Complete blood count (07/15/2024 5:55 AM EDT) WBC 5.1 4.8 - 10.8 K/mcL LAB HEMETOLOGY METHOD 07/15/2024 8:46 AM [facility] RBC 3.50(L) 3.80 - 4.80 M/mcL LAB HEMETOLOGY METHOD 07/15/2024 8:46 AM [facility] Hemoglobin 9.9(L) 11.5 - 16.0 g/dL LAB HEMETOLOGY METHOD 07/15/2024 8:46 AM [facility] Hematocrit 31.8(L) 35.0 - 47.0 % LAB HEMETOLOGY METHOD 07/15/2024 8:46 AM [facility] MCV 91.1 79.0 - 98.0 FL LAB HEMETOLOGY METHOD 07/15/2024 8:46 AM [facility] MCH 28.4 27.0 - 32.0 pcg LAB HEMETOLOGY METHOD 07/15/2024 8:46 AM EDT [facility] MCHC 31.1(L) 32.0 - 37.0 g/dL LAB HEMETOLOGY METHOD 07/15/2024 8:46 AM EDT [facility] RDW 14.6 11.0 - 15.0 % LAB HEMETOLOGY METHOD 07/15/2024 8:46 AM EDT [facility] Platelets 190 130 - 400 K/mcL LAB HEMETOLOGY METHOD 07/15/2024 8:46 AM EDT [facility] MPV 12.1(H) 7.0 - 11.0 FL LAB HEMETOLOGY METHOD 07/15/2024 8:46 AM EDT [facility] NRBC 0.0 <1.0 % LAB HEMETOLOGY METHOD 07/15/2024 8:46 AM EDT [facility] NRBC Absolute 0.00 <0.10 K/mcL LAB HEMETOLOGY METHOD 07/15/2024 8:46 AM EDT [facility] Blood Venous blood specimen / Unknown Venipuncture / Unknown 07/15/2024 5:55 AM EDT 07/15/2024 8:25 AM EDT us Ken Good MD LAB BLOOD ORDERABLES Final Resul t [facility] [address] [place] [address], documented in this encounter Visit Diagnoses Diagnosis Presence of left artificial knee joint documented in this encounter Care Teams Biodiesel Plant Superintendent Relationship Specialty Start Date End Date Any Chu NP [address] [place] [address] PCP - General 08/14/22 documented as of this encounter
--- OUTSIDE RECORDS SUMMARY | 2024-07-29 14:02 | XMS_ITS | Clinical Summary ---
Author Organization [facility] Address [address] [place] [address] Care Team Providers Care Home Office Claim Specialist Name Role Phone Osman Wilkinson MD Primary Care Provider [phone] Allergies Active Allergy Reactions Criticality Noted Date [...] age to complete this topic Care Teams Home Office Claim Specialist Relationship Specialty Start Date End Date Osman Wilkinson MD [address] [address] PCP - General Internal Medicine 4/7/22
--- OUTSIDE RECORDS SUMMARY | 2024-07-29 14:02 | XMS_ITS | Encounter Summary ---
Author Organization [facility] Address [address] [place] [address] Care Team Providers Care Bumper And Painter Name Role Phone Unknown Primary Care Provider [phone] Encounter Details Date Type Department Care Team (Late st Contact Info) Description 05/30/2020 5:46 PM EDT Hospital Encounter [facility] [address] [place] [address] Bonnie Babb PA [address] [facility] [address] [place] [address] Social History Tobacco Use Types Packs/Day Years [...] on filedocumented in this encounter Care Teams Bumper And Painter Relationship Specialty Start Date End Date Unknown Unknow Provider Address PCP - General 05/30/20 07/06/20 documented as of this encounter
--- OUTSIDE RECORDS SUMMARY | 2024-07-29 14:02 | XMS_ITS | Referral Summary ---
Author Organization [facility] Address [address] [place] [address] Care Team Providers Care Brand Communications Manager Name Role Phone Osman Wilkinson Primary Care Provider Allergies Active Allergy Reactions Criticality Noted Date Comments Pollen Extracts Unknown Low 11/01/2019 Medications bromfenac (XIBROM) 0.09 % ophthalmic solution 07/10/2018 Active prednisoLONE acetate (PRED FORTE) 1% ophthalmic suspension 07/10/2018 Active vitamins A,C,E-zinc-leana er 14,320226-200 kutv-oy-tzuf capsule Take 1 capsule by mouth. Active [...] Info) Description 08/25/2024 1:15 PM EDT Follow-Up [facility] Eye [address] [address] Dunia Walls MD [address] [place] [address] Insurance A[employer] MCR Care Teams Brand Communications Manager Relationship Specialty Start Date End Date Osman Wilkinson [address] [address] PCP - General Internal Medicine 08/21/18
--- OUTSIDE RECORDS SUMMARY | 2024-07-29 14:03 | XMS_ITS | Encounter Summary ---
Author Organization [facility] Address [address] [place] [address] Care Team Providers Care Wool Dyer Name Role Phone Any Chu NP Primary Care Provider [phone] Encounter Details Date Type Department Care Team (Late st Contact Info) Description 07/24/2024 Lab Requisition [facility] - Main Lab 299 [facility] [place] [address] Ken Good MD 38 [facility] [address] [place], [address] Presence of left artificial knee joint [...] on file documented as of this encounter Visit Diagnoses Diagnosis Presence of left artificial knee joint documented in this encounter Care Teams Wool Dyer Relationship Specialty Start Date End Date Any Chu NP [address] [place] [address] PCP - General 08/14/22 documented as of this encounter
--- OUTSIDE RECORDS SUMMARY | 2024-07-29 14:03 | XMS_ITS | Data Portability ---
Author Organization [facility], Main Office Address [address] [facility] [address] [place] [address] Care Team Providers Care Communications Strategist Name Role Phone [facility] OTHER [facility] Primary Care Provider [...] [facility] 09:25:17 Osteoarthriti s of knee 864642437 Active 2024 Not Available [facility] 09:26:29 Muscle weakness 31602021 Active 2024 Not Available [facility] 15:26:29 Difficulty walking 519105694 Active 2024 Not Available [facility] and [...] (RSV) MAB, unspecified 02/03/2023 completed Aramis herrera [facility] 07/16/2024 11:55:57 influenza, unspecified formulation 02/23/2019 completed Aramis herrera [facility] 07/16/2024 11:56:08 influenza, unspecified formulation 02/03/2021 completed Aramis Morrison null, [facility] 07/16/2024 11:56:14 influenza, unspecified formulation 12/23/2022 completed Aramis Morrison null, [facility] 07/16/2024 11:56:20 SARS-COV-2 (COVID-19) vaccine, UNSPECIFIED 01/16/2021 completed Aramis Morrison null, [facility] 07/16/2024 11:56:30 SARS-COV-2 (COVID-19) vaccine, UNSPECIFIED 07/16/2021 completed Aramis Morrison null, [facility] 07/16/2024 11:56:34 SARS-COV-2 (COVID-19) vaccine, UNSPECIFIED 12/23/2022 completed Aramis Morrison null, [facility] 07/16/2024 11:56:39 SARS-COV-2 (COVID-19) vaccine, UNSPECIFIED 07/21/2023 completed Aramis Morrison null, [facility] 07/16/2024 11:56:43 SARS-COV-2 (COVID-19) vaccine, UNSPECIFIED 11/13/2023 completed Aramis [facility], [facility] 07/16/2024 11:56:48 Past Encounters Encounter ID Performer Location Encounter Start Date Encounter Closed Date Diagnosis/Indication Diagnosis SNOMED-CT Code Diagnosis ICD10 Code Diagnosis Note [id number] ISREAL GRIMES [facility] [place] [address] 07/16/2024 09:06:32 07/19/2024 15:00:30 Osteoarthritis of knee 811697081 M17.9 sp left total kneecont calcium and vit d Follow-up status 0990343 05 Z51.89 sp left total kneeMethoc arbamol 500 mg tidgabapen tin 100 mg qhstylenol prn = does not want it scheduledd c oxycodone per pt requestasp rin 325 mg daily x 42 days post opadmit to PT OT Prediabetes 006284595 R7 3.03 monitor outpt Acute constipation 90592 9006 K59.00 had sm BM this amhad normal BM up until friday, now post opmonitor bowelsinit iate bowel protocol Bilateral sensation of blocked ears 7759536093 9734881 H93.8X3 no painwants to hold off on debrox and flush [id number] ISREAL GRIMES [place] [address] [place] [address] 07/19/2024 12:39:32 07/21/2024 07:09:00 Osteoarthritis of knee 971951721 M17.9 sp left total kneecont calcium and vit df/up with pcp Follow-up status 6689330 05 Z51.89 sp left total kneeMethoc arbamol 500 mg tidgabapen tin 100 mg qhstylenol prnasprin 325 mg daily x 42 days post opcomplete d PT [place]/up with ortho as planneddc home with services Prediabetes 090990446 R7 3.03 monitor outptf/up with pcp Acute constipation 58111 9006 K59.00 resolved post opmonitor bowels at homenot on opioids Bilateral sensation of blocked ears 2910202029 0731415 H93.8X3 suspect allergiess uggested antihistim ine, pt will monitor at home and f/up w/ pcp if needed Health Concerns Section Related Observation LastModified by Organization Detai ls LastModified Time None Recorded Concern Status LastModified by Organization Details LastModified Time None Recorded Advance Directives Directive None Recorded Payers Encounter Date Sequence Insurance Name Policy Number Policy Wharton Covered Member ID Wharton Member ID Guarantor Name 07/16/2024 1 [employer] (MEDICARE REPLACEMENT/ ADVANTAGE - PPO) [facility] [id number] [facility] 07/19/2024 1 [employer] (MEDICARE REPLACEMENT/ ADVANTAGE - PPO) [facility] [id number] [facility] Notes Date Note Type Note Provider Name and Address Organization Details Recorded Time 07/16/2024 text/html Pt is an 88 yo female being seen for initial intake visit. Pt underwent a left total knee dt OA. Surgery was uneventful and she was discharge to [facility] for a STR stay. Pt seen and [...] house and a cane outside. Limited PMH. ISREAL GRIMES [address] [facility], [address], [place], [address], [facility] [employer]y [employer] 07/16/2024 11:35:55 07/19/2024 text/html Pt is an 88 yo female being seen for discharge summary visit. Pt underwent a left total knee dt OA. Surgery was uneventful and she was discharge to [facility] for a STR stay. Seeing pt today who feels ready to dc home. Her and son are at the bedside and are agreeable to her dc. SW is sending out referals. Pt is medically clear for dc home with meds and services at this time. Limited [employer]H. ISREAL GRIMES [address] [facility], [address], [place], [address], [facility] [employer] 07/20/2024 08:13:17 OBGyn Episode No OBEpisode recorded.
== END 2024-07-29 14:18 | disposition home or self-care (01) ==
LOC: HO.HOS 13:26
PROVIDERS: PCP Family Medicine; Visit Provider Physician Assistant
DX: Z96.652 Presence of left artificial knee joint (principal)
CPT/HCPCS: 99024

== ENCOUNTER → 2024-07-29 13:29 | Outpatient (BNV) | payer MEDICARE, SELFPAY | PROVIDERS: Visit Provider Radiology Diagnostic Radiology | DX: M25.562 Pain in left knee (principal); Z96.652 Presence of left artificial knee joint | CPT/HCPCS: 73562 ==

== ENCOUNTER 2024-08-19 12:34 | Outpatient (AMB) | payer OTHER, SELFPAY ==
--- NOTE | 2024-08-19 12:50 | A.OFFVIS_ITS ---
Vital Signs 08/19/24 12:52 Height 5 ft 3.27 in Weight 200 lb BMI 35.1 Intake Visit Reasons: 6WK PO: L TKA w/ 07/12/24 Intake Note: Gayle is an 88 year old female who presents with complaints of mild intermittent discomfort in her left knee after undergoing left total knee replacement surgery on 07/12/2024. She denies any fevers or chills. She continues to take Celebrex and Tylenol for her discomfort. She continues to go to outpatient physical therapy. She does walk with a cane. The patient states that so far her recovery has been somewhat easier than when she underwent right total knee replacement surgery several years ago. Allergies No Known Allergies Allergy (Verified 08/19/24 12:51) Medication List - Last Reconciled 08/19/24 by Dhruv Lewis MD acetaminophen 650 mg (2 x 325 mg) PO Q6H PRN 30 days aspirin 325 mg PO BID 42 days calcium carbonate-vitamin D3 600 mg-5 mcg (200 unit) 1 tab PO BID celecoxib 200 mg PO BID 30 days gabapentin 100 mg PO BEDTIME 7 days sennosides (Senna Lax) 17.2 mg (2 x 8.6 mg) PO BEDTIME 30 days sodium fluoride-pot nitrate 1.1-5 % 1 appl PO BEDTIME walker Folding front wheeled walker [facility] Medical History History of MRSA infection Heartburn Pre-diabetes Osteopenia Nonexudative age-related macular degeneration DJD (degenerative joint disease) Female bladder prolapse Arthritis Surgical History Hx of eye surgery Hx of tonsillectomy Hx of left cataract extraction History of esophagogastroduodenoscopy (EGD) H/O colonoscopy Hx of breast biopsy Hx of shoulder surgery History of total right knee replacement History of carpal tunnel release Social History Household Members: Spouse Housing: House Are you a primary childcare aide to a significant other at home: No Do you presently have visiting nurse or other home services: No Alcohol intake: never Comment: advised of trip hazard Patient Tobacco Use Status: Former Tobacco user Tobacco use type: Cigarette Years Smoked: 10 Substance Use Type: Marijuana service: No Current occupational status: retired Physical Exam Vital Signs: BMI result Body Mass Index 35.1 Extrem Other: Left knee examination shows that the surgical incision is well healed, no erythema, mild diffuse swelling, range of motion from -3 degrees to 110 degrees, her patella tracks well Assessment & Plan Assessment & Plan (1) Left knee pain: Code(s): M25.562 - Pain in left knee Category: Medical Plan Ms. Ji continues to do well after undergoing left total knee replacement surgery on 07/12/2024. She will continue going to outpatient physical therapy for now. She will gradually transition to a home exercise program. She does know to take antibiotics before any dental work. She will contact me prior to her follow-up appointment in 2 months should any questions or concerns arise. Medications: Changed From celecoxib 200 mg PO BID 30 days 60 caps 0RF To celecoxib 200 mg PO Q24H PRN 30 caps 2RF pain Coding Level of Care Code Global (96564) Diagnoses Left knee pain M25.562
[2024-08-19 12:52] VITALS: BMI 35.1
--- OUTSIDE RECORDS SUMMARY | 2024-08-19 14:39 | XMS_ITS | Clinical Summary ---
Author Organization [facility] Address [address] [place] [address] Care Team Providers Care Net Washer Name Role Phone Osman Wilkinson Primary Care Provider Allergies Active Allergy Reactions Criticality Noted Date Comments Pollen Extracts Unknown Low 11/01/2019 Medications bromfenac (XIBROM) 0.09 % ophthalmic solution 07/10/2018 Active prednisoLONE acetate (PRED FORTE) 1% ophthalmic suspension 07/10/2018 Active vitamins A,C,E-zinc-leana er [id number],[id number] ohbc-oh-sddm capsule Take 1 capsule by mouth. Active [...] Team (Late st Contact Info) Description 08/25/2024 2:00 PM EDT Follow-Up [facility] [address] [address] Dunia Walls MD [address] [place], [place] [id number] Health Maintenance Due Date Last Done Comments [...] this topic Insurance AET[employer] MCR Care Teams Net Washer Relationship Specialty Start Date End Date Osman Wilkinson [address] [place] [address] PCP - General Internal Medicine 08/21/18
== END 2024-08-19 13:11 | disposition home or self-care (01) ==
LOC: HO.HOS 12:35
PROVIDERS: PCP Family Medicine; Visit Provider Orthopaedic Surgery
DX: M25.562 Pain in left knee (principal)
CPT/HCPCS: 99024

== ENCOUNTER 2024-10-19 14:20 | Outpatient (AMB) | payer OTHER, SELFPAY ==
[2024-10-19 14:23] VITALS: BMI 32.9
--- NOTE | 2024-10-19 14:23 | A.OFFVIS_ITS ---
Vital Signs 10/19/24 14:23 Height 5 ft 2 in Weight 180 lb BMI 32.9 Intake Visit Reasons: OV-PO: L TKA w/DR 07/12/24 Intake Note: Gayle is a 89 year old female who presents with complaints of mild intermittent discomfort in her left knee after undergoing left total knee replacement surgery on 07/12/2024. She continues with her home stretching program. She also goes to the [facility] to ride the stationary bike. She denies any fevers or chills. Allergies No Known Allergies Allergy (Verified 10/19/24 14:27) Medication List - Last Reconciled 10/19/24 by Dhruv Lewis MD acetaminophen 650 mg (2 x 325 mg) PO Q6H PRN 30 days aspirin 325 mg PO BID 42 days calcium carbonate-vitamin D3 600 mg-5 mcg (200 unit) 1 tab PO BID celecoxib 200 mg PO Q24H PRN gabapentin 100 mg PO BEDTIME 7 days sennosides (Senna Lax) 17.2 mg (2 x 8.6 mg) PO BEDTIME 30 days sodium fluoride-pot nitrate 1.1-5 % 1 appl PO BEDTIME walker Folding front wheeled walker [facility] Medical History History of MRSA infection Heartburn Pre-diabetes Osteopenia Nonexudative age-related macular degeneration DJD (degenerative joint disease) Female bladder prolapse Arthritis Surgical History Hx of eye surgery Hx of tonsillectomy Hx of left cataract extraction History of esophagogastroduodenoscopy (EGD) H/O colonoscopy Hx of breast biopsy Hx of shoulder surgery History of total right knee replacement History of carpal tunnel release Social History Household Members: Spouse Housing: House Are you a primary home care aide to a significant other at home: No Do you presently have visiting nurse or other home services: No Alcohol intake: never Comment: advised of trip hazard Patient Tobacco Use Status: Former Tobacco user Tobacco use type: Cigarette Years Smoked: 10 Substance Use Type: Marijuana service: No Current occupational status: retired Physical Exam Vital Signs: BMI result Body Mass Index 32.9 Const Other: Well-nourished well-developed very friendly female awake alert and oriented x3 in no acute distress Extrem Other: Left knee examination shows that the surgical incision is well healed, no erythema, full active extension and flexion to 120 degrees, her patella tracks well Assessment & Plan Assessment & Plan (1) Left knee pain: Code(s): M25.562 - Pain in left knee Category: Medical Plan Ms. Ji continues to do very well after undergoing left total knee replacement surgery on 07/12/2024. She will continue with her physical therapy exercises. She does know to take antibiotics before any dental work. She will contact me prior to her follow-up appointment in 3 months should any questions or concerns arise. Feel free to call me at any time should questions regarding her orthopedic management arise. I spent 20 minutes in reviewing the patient's records and imaging studies, seeing the patient and documenting in the medical record. Medications: Refilled celecoxib 200 mg PO Q24H PRN 30 caps 2RF pain Coding Level of Care Code Est Pt Level 3 (16704) Complex EM visit Add On G2211 Diagnoses Left knee pain M25.562
--- OUTSIDE RECORDS SUMMARY | 2024-10-19 15:00 | XMS_ITS | Clinical Summary ---
Author Organization [facility] Address [address] [place] [address] Care Team Providers Care Grocery Carrier Name Role Phone Osman Wilkinson MD Primary Care Provider [phone] Allergies No known active allergies Medications diclofenac [...] 89 11/16/2023 3:20 PM EDT Temperature 36.6 C (97.8 F) 11/16/2023 3:20 PM EDT Respiratory Rate 16 11/16/2023 3:20 PM EDT [...] 09/25/2010 COVID-19 Vaccine ( season) 2023 12/23/2022, 07/09/2022, 01/12/2022, Additional history exists Influenza Vaccine 10/15/2024 12/23/2022, , 02/23/2019 Hepatitis B Vaccines Aged Out No long er eligible based on patient's age to complete this topic Insurance MEDICARE PART A & B MEDICARE PART A & B AET[employer] MGD MEDICARE Care Teams Grocery Carrier Relationship Specialty Start Date End Date Osman Wilkinson MD [address] [place] [address] PCP - General 07/07/20
--- OUTSIDE RECORDS SUMMARY | 2024-10-19 15:00 | XMS_ITS | Clinical Summary ---
Author Organization [facility] [address] [facility] Address [address] [place] [address] Phone Care Team Providers Care Vegetable Cook Name Role Phone Any Chu NP Primary Care Provider [phone] Allergies Active Allergy Reactions Criticality Noted Date [...] Department Care Team Description 07/24/2024 Lab Requisition [facility] Main Lab [address] [facility] [employer] [place] [address] Ken Good MD Presence of left artificial knee joint 07/16/2024 Lab Requisition [facility] Main Lab [address] [place] [address] Ken Good MD Presence of left artificial knee joint from Last 3 Months Surgical History Surgery Date Site/Laterality Comments TOTAL KNEE ARTHROPLASTY PROCEDURE: [place] ARTHRP KNE CONDYLE&PLATU MEDIAL&LAT COMPARTMENTS TONSILLECTOMY ADENOIDECTOMY, BILATERAL MYRINGOTOMY AND TUBES PROCEDURE: [place] TONSILLECTOMY & ADENOIDECTOMY <AGE 12 SHOULDER SURGERY [...] 67 03/01/2024 11:35 AM EST Temperature 36.5 C (97.7 F) 03/01/2024 11:35 AM EST Respiratory Rate - - Oxygen Saturation 99% 03/01/2024 11:35 AM EST Inhaled Oxygen Concentration - - Weight 82.1 kg (181 lb) 05/20/2024 9:16 AM EST Height 162.6 cm (5' 4 ) 05/20/2024 9:16 AM EST Body Mass Index 31.07 05/20/2024 9:16 AM EST Plan of Treatment Upcoming Encounters Date Type Department Care Team (Late st Contact Info) Description 10/25/2024 11:30 AM EDT Office Visit Orthopedic Surgery - [place] [address] [facility] [address] [place] [id number] Connor Esteban MD 175 [facility] [address] [place] [address] Health Maintenance Due Date Last Done Comments DTaP,Tdap,and Td Vaccines (1 - Tdap) 09/25/1954 Pneumococcal Vaccine: 50+ Years (1 of 1 - PCV) 09/25/1985 Zoster Vaccines (1 of 2) 09/25/1985 Falls Risk Assessment 02/22/2022 Medicare Annual Wellness Visit 02/22/2022 Osteoporosis Screening (Bone Density Screening) 02/22/2022 Social Influencers of Health Screening 02/22/2022 Depression Screening 03/17/2024 COVID-19 Vaccine ( season) 2024 11/13/2023, 07/21/2023, 12/23/2022, Additional history exists Influenza Vaccine (#1) 2024 , 02/03/2021, 02/23/2019 RSV Immunization Adult Patients Completed [...] Complete blood count (07/19/2024 7:00 AM EDT) [facility] WBC 6.0 4.8 - 10.8 K/mcL LAB HEMETOLOGY METHOD 07/19/2024 1:09 PM EDT [facility] RBC 4.00 3.80 - 4.80 M/mcL LAB HEMETOLOGY METHOD 07/19/2024 1:09 PM [facility] Hemoglobin 11.3(L) 11.5 - 16.0 g/dL LAB HEMETOLOGY METHOD 07/19/2024 1:09 PM [facility] Hematocrit 36.9 35.0 - 47.0 % LAB HEMETOLOGY METHOD 07/19/2024 1:09 PM [facility] MCV 92.0 79.0 - 98.0 FL LAB HEMETOLOGY METHOD 07/19/2024 1:09 PM [facility] MCH 28.2 27.0 - 32.0 pcg LAB HEMETOLOGY METHOD 07/19/2024 1:09 PM [facility] MCHC 30.6(L) 32.0 - 37.0 g/dL LAB HEMETOLOGY METHOD 07/19/2024 1:09 PM [facility] RDW 14.3 11.0 - 15.0 % LAB HEMETOLOGY METHOD 07/19/2024 1:09 PM [facility] Platelets 307 130 - 400 K/mcL LAB HEMETOLOGY METHOD 07/19/2024 1:09 PM [facility] MPV 11.1(H) 7.0 - 11.0 FL LAB HEMETOLOGY METHOD 07/19/2024 1:09 PM [facility] NRBC 0.0 <1.0 % LAB HEMETOLOGY METHOD 07/19/2024 1:09 PM [facility] NRBC Absolute 0.00 <0.10 K/mcL LAB HEMETOLOGY METHOD 07/19/2024 1:09 PM [facility] Blood Venous blood specimen / Unknown Venipuncture / Unknown 07/19/2024 7:00 AM EDT 07/19/2024 11:18 AM EDT us Ken Good MD LAB BLOOD ORDERABLES Final Resul t [facility] [address] [place] [address], * Basic metabolic panel (07/19/2024 7:00 AM EDT) Sodium 141 133 - 145 mmol/L LAB CHEMISTRY METHOD 07/19/2024 12:46 PM [facility] Potassium 4.1 3.5 - 5.5 mmol/L LAB CHEMISTRY METHOD 07/19/2024 12:46 PM [facility] Chloride 105 96 - 110 mmol/L LAB CHEMISTRY METHOD 07/19/2024 12:46 PM [facility] CO2 28 21 - 32 mmol/L LAB CHEMISTRY METHOD 07/19/2024 12:46 PM [facility] Anion Gap 8 3 - 11 LAB CHEMISTRY METHOD 07/19/2024 12:46 PM [facility] Glucose 90 70 - 100 mg/dL LAB CHEMISTRY METHOD 07/19/2024 12:46 PM [facility] BUN 16 5 - 25 mg/dL LAB CHEMISTRY METHOD 07/19/2024 12:46 PM [facility] Creatinine 0.70 0.50 - 1.10 mg/dL LAB CHEMISTRY METHOD 07/19/2024 12:46 PM [facility] eGFR 83 >=60 mL/min/1. 73m2 LAB CHEMISTRY METHOD 07/19/2024 12:46 PM [facility] Comment:Calculation based on the Chronic Kidney Disease Epidemiology Collaboration (CKD-EPI) equation refit without adjustment for race. BUN/Creatinine Ratio 22.9 LAB CHEMISTRY METHOD 07/19/2024 12:46 PM [facility] Calcium 9.1 8.5 - 10.5 mg/dL LAB CHEMISTRY METHOD 07/19/2024 12:46 PM EDT [facility] Blood Venous blood specimen / Unknown Venipuncture / Unknown 07/19/2024 7:00 AM EDT 07/19/2024 11:18 AM EDT us Ken Good MD LAB BLOOD ORDERABLES Final Resul t [facility] [address] [place] [address], from Last 3 Months Insurance A[employer] MEDICARE ADVANTAGE AETNA Care Teams Vegetable Cook Relationship Specialty Start Date End Date Any Chu NP [address] [place] [address] PCP - General 08/14/22
--- OUTSIDE RECORDS SUMMARY | 2024-10-19 15:00 | XMS_ITS | Clinical Summary ---
Author Organization [facility] Address [address] [place] [address] Care Team Providers Care Parks Recreation Coordinator Name Role Phone Osman Wilkinson MD Primary Care Provider [phone] Allergies Active Allergy Reactions Criticality Noted Date [...] season) 2023 06/21/2020, 05/26/2020 Influenza Vaccine (#1) 2024 Hepatitis B Vaccines Aged Out No long er eligible based on patient's age to complete this topic RSV Ped < 20 months Aged Out No longe r eligible based on patient's age to complete this topic Care Teams Parks Recreation Coordinator Relationship Specialty Start Date End Date Osman Wilkinson MD [address] [address] PCP - General Internal Medicine 4/7/22
--- OUTSIDE RECORDS SUMMARY | 2024-10-19 15:00 | XMS_ITS ---
Author Name [facility] Organization Unknown History of Medication Use Medication Directions Dispensed Refills Start Date End Date Stat us Sodium Fluoride 5000 Sensitive 1.1-5 % Gel USE AT BEDTIME IN PLACE OR REGULAR PASTE 09/05/2023 active diclofenac (VOLTAREN) 75 mg EC tablet Take 75 mg by mouth daily as needed. 05/10/2021 active multivitamin (MULTIPLE VITAMINS ORAL) TAKE 1 TABLET DAILY. 06/17/2017 active diclofenac enteric coated (VOLTAREN) 75 MG EC tablet Take 75 mg by mouth. active Multiple Vitamins-Minerals (PreserVision AREDS) Cap Take 1 capsule by mouth. 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 ProblemAct [facility] Macular degeneration active 2017-03-18 ProblemAct [facility] Acute maxillary sinusitis, recurrence not specified active EncounterDiagnosisAct [facility] Sprain of left wrist active 2024-03-04 ProblemAct [facility] 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 active 2024-03-04 ProblemAct [facility] T Arthritis of left wrist active 2024-03-04 ProblemAct [facility] Cough, unspecified type active EncounterDiagnosisAct [facility] COVID active EncounterDiagnosisAct [facility] Encounters Encounter Type Encounter Reason Primary Diagnosis Location Date Ambulatory [facility] 03/05/2024 Ambulatory [facility] 03/03/2024 Ambulatory [facility] 03/03/2024 Ambulatory [facility] 03/03/2024 Ambulatory [facility] [place] 03[facility]03/2024 Ambulatory [facility] [place] 03/03/2024 [facility] Fracture of unspecified carpal bone, right wrist, initial encounter for closed fracture [facility] 03/01/2024 Ambulatory [facility] 03/01/2024 [facility] 11/16/2023 Ambulatory [facility] [place] 07/17/2022 Care Team Organization Name Specialty Phone Email Start Date End Da te [facility] [place] 08/27/2024 [facility] 08/27/2024 [facility] 08/16/2024 08/18/2024 [facility] 07/28/2024 [facility] 03/04/2024 [facility] Primary Care 03/01/2024 [facility] Primary Care 11/16/2023 06/02/2024 [facility] Primary Care 11/16/2023 [employer] 05/30/2020 05/30/2020
--- OUTSIDE RECORDS SUMMARY | 2024-10-19 15:00 | XMS_ITS | Encounter Summary ---
Author Organization [facility] Address [address] [place] [address] Phone Care Team Providers Care Lining Feller Name Role Phone Osman Wilkinson MD Primary Care Provid er Encounter Details Date Type Department Care Team (Late st Contact Info) Description 11/05/2019 Procedure Pass ORALIA LW PERIOP DEPT [address] [place] [address] Social History Tobacco Use Types Packs/Day Years Used Date Smoking Tobacco: Former Cigarettes Q uit: 10/31/1966 Smokeless Tobacco: Never Alcohol Use Standard Drinks/Week Comments Not Currently 0 (1 standard drink = 0.6 oz pur e alcohol) social and rare Comments Unknown Sex and Gender Information Value Date Recorded Sex Assigned at Not on file Legal Sex Female 12:08 PM EST Gender Identity Not on file Sexual Orientation Not on file documented as of this encounter Plan of Treatment Not on file documented as of this encounter Visit Diagnoses Not on filedocumented in this encounter Care Teams Lining Feller Relationship Specialty Start Date End Date Osman Wilkinson MD [address] [place] [address] PCP - General Internal Medicine 05/21/19 documented as of this encounter Additional Source Comments The information contained in this document represents components of the legal health record. It is not the complete legal health record.[facility]
--- OUTSIDE RECORDS SUMMARY | 2024-10-19 15:00 | XMS_ITS | Clinical Summary ---
Author Organization [facility] Address [address] [place] [address] Care Team Providers Care Service Correspondent Name Role Phone Osman Wilkinson Primary Care Provider Allergies Active Allergy Reactions Criticality Noted Date Comments Pollen Extracts Unknown Low 11/01/2019 Medications vitamins A,C,E-zinc-leana er 14,187-419-200 pkgd-hi-ttmw capsule Take 1 capsule by mouth. 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 from Last 3 Months Social History Tobacco Use Types Packs/Day Years [...] Care Team (Late st Contact Info) Description 03/02/2025 1:30 PM EST Follow-Up [address] [address] Dunia Walls MD [address] [place] [address] 08/31/2025 1:30 PM EDT Follow-Up [address] [address] Dunia Walls MD [address] [place] [address] Health Maintenance Due Date Last Done Comments DTaP,Tdap,and Td Vaccines (1 - Tdap) 09/25/1957 Osteoporosis Screening 09/25/1985 Pneumococcal Vaccine: 50+ Years (1 of 1 - PCV) 09/25/1985 Zoster Vaccines (1 of 2) 09/25/1985 Alcohol/Substance Use Screening 03/17/2024 Health Care Proxy Review 03/17/2024 COVID-19 Vaccine ( season) 2024 11/13/2023, 11/13/2023, 11/13/2023, Additional history exists Influenza Vaccine (#1) 2024 , 02/03/2021, 02/23/2019 RSV Vaccine (60+ years old and patients) Completed 02/03/2023 Hepatitis B Vaccines Aged Out No long er eligible based on patient's age to complete this topic Procedures * Due to [place] [employer] law, this organization might not be sharing negative HIV tests. 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 * Color Fundus Photography/Autofluorescence - OU - Both Eyes (08/25/2024 3:04 PM EDT) Narrative OPHTHALMOLOGY IMAGING - 08/25/2024 3:04 PM EDT OD: Scar centrally OS: Pigment change and drusen confluent centrally. Peripheral drusen Dunia Walls MD OPHTH PHOTOGRAPHY Edited Res ult - Final Performing Organization Address [facility] Co de Phone Number OPHTHALMOLOGY IMAGING * OCT, Retina - OU - Both Eyes (08/25/2024 3:04 PM EDT) Narrative OPHTHALMOLOGY IMAGING - 08/25/2024 3:04 PM EDT Retina thinning OD, atrophy Drusen OS Dunia Walls MD OPHTH TOMOGRAPHY Edited Resu lt - Final OPHTHALMOLOGY IMAGING from Last 3 Months Insurance [employer] MCR Care Teams Service Correspondent Relationship Specialty Start Date End Date Osman Wilkinson [address] [place] [address] PCP - General Internal Medicine 08/21/18
== END 2024-10-19 14:58 | disposition home or self-care (01) ==
LOC: HO.HOS 14:21
PROVIDERS: PCP Family Medicine; Visit Provider Orthopaedic Surgery
DX: M25.562 Pain in left knee (principal)
CPT/HCPCS: 99213; G2211

== ENCOUNTER 2025-01-20 08:34 | Outpatient (REF) | payer MEDICARE, SELFPAY ==
--- OUTSIDE RECORDS SUMMARY | 2020-05-30 16:46 | XMS_ITS | Encounter Summary ---
Author Organization [facility] Address [address] [place] [address] Care Team Providers Care Project Systems Engineer Name Role Phone Unknown Primary Care Provider [phone] Encounter Details Date Type Department Care Team (Late st Contact Info) Description 05/30/2020 5:46 PM EDT Hospital Encounter [facility] [address] [place] [address] Bonnie [facility]abb PA [address] [facility] [address] [place] [address] Social History Tobacco Use Types Packs/Day Years Used Date Smoking Tobacco: Never Assessed Comments Unknown Sex and Gender Information Value Date Recorded Sex Assigned at Not on file Legal Sex Female 4:10 PM EDT Gender Identity Not on file Sexual Orientation Not on file COVID-19 Exposure Response Date Recorded In the last month, have you been in contact with someone who was confirmed or suspected to have Coronavirus / COVID-19? No / Unsure 09/20/2020 2:07 PM EDT documented as of this encounter Plan of Treatment Not on file documented as of this encounter Procedures Procedure Name Priority Date/Time Associated Diagnosis Comments XR SHOULDER 2+ VIEWS-RIGHT STAT 05/30/2020 6:01 PM EDT Acute pain of right shoulder documented in this encounter Results * XR Shoulder 2+ views-Right (05/30/2020 6:01 PM EDT) Anatomical Region Laterality Modality Shoulder Right Computed Radiogr aphy 05/30/2020 6:02 PM EDT Impressions 05/30/2020 6:03 PM EDT Impression: No acute osseous abnormality. Narrative 05/30/2020 6:03 PM EDT Technique: 3 views obtained of the right shoulder Comparison: No relevant prior Findings: Demineralization. No fracture or dislocation. Degenerative changes with glenohumeral narrowing and spurring of the inferior humeral head. Unremarkable right hemithorax. Procedure Note Mable Morton MD - 05/30/2020 Technique: 3 views obtained of the right shoulder Comparison: No relevant prior Findings: Demineralization. No fracture or dislocation. Degenerative changes withglenohumeral narrowing and spurring of the inferior humeral head.Unremarkable right hemithorax. IMPRESSION: Impression: No acute osseous abnormality. Bonnie [facility] Final Result documented in this encounter Visit Diagnoses Not on filedocumented in this encounter Care Teams Project Systems Engineer Relationship Specialty Start Date End Date Unknown Unknow Provider Address PCP - General 05/30/20 07/06/20 documented as of this encounter
--- NOTE | ~2025-01-20 | XR_ITS ---
XR KNEE MJ 3V HISTORY: Bilateral knee pain COMPARISON: 05/29/2024, 10/30/2023. TECHNIQUE: AP, lateral, and patellofemoral views of each knee obtained. FINDINGS: RIGHT KNEE: Total right knee arthroplasty in place. Femoral, and tibial components are intact, well seated, in anatomic alignment. No periprosthetic fracture or lucency. Associated patellar resurfacing. No bone lesion. The patella appears normally aligned. No evidence of joint effusion. Soft tissues demonstrate vascular calcifications. LEFT KNEE: Total left knee arthroplasty in place. Femoral, and tibial components are intact, well seated, in anatomic alignment. No periprosthetic fracture or lucency. Associated patellar resurfacing. No bone lesion. The patella appears normally aligned. No evidence of joint effusion. Soft tissues demonstrate vascular calcifications. XR/XR Knee Mj 3V IMPRESSION: 1. Bilateral total knee arthroplasties without definite complications. 2. No evidence of joint effusion in either knee. 3. There are mild bilateral soft tissue vascular calcifications. Electronically signed by: Suresh Preciado MD 01/20/2025 02:06 PM NAYA
--- OUTSIDE RECORDS SUMMARY | 2025-01-21 09:07 | XMS_ITS | Clinical Summary ---
Author Organization [facility] Address [address] [place] [address] Care Team Providers Care Linen Folder Name Role Phone Osman Wilkinson MD Primary Care Provider +1- [phone] Allergies No known active allergies Medications diclofenac [...] & B AETNA MGD MEDICARE Care Teams Linen Folder Relationship Specialty Start Date End Date Osman Wilkinson MD [address] [place] [address] PCP - General 07/07/20
--- OUTSIDE RECORDS SUMMARY | 2025-01-21 09:07 | XMS_ITS | Encounter Summary ---
Author Organization [facility] Address [address] [place] [address] Care Team Providers Care Cafeteria Assistant Name Role Phone Any Chu RN HEMODIALYSIS Primary Care Provider [phone] Encounter Details Date Type Department Care Team (Late st Contact Info) Description 07/16/2024 Lab Requisition [facility] - Main Lab 299 [facility] [place] [address] Ken Good MD 38 [facility] [address] [place], [address] Presence of left artificial knee joint [...] as of this encounter Plan of Treatment Upcoming Encounters Date Type Department Care Team (Late Contact Info) Description 02/24/2025 8:30 AM EST Office Visit Gastroenterology - 299 [address] [facility] [address] [place] [phone] Sameer Pastrana MD 299 [facility] [address] [place] [address] documented as of this encounter Procedures Procedure [...] mmol/L LAB CHEMISTRY METHOD 07/19/2024 12:[address] [facility] Potassium 4.1 3.5 - 5.5 mmol/L LAB CHEMISTRY METHOD 07/19/2024 12:[address] [facility] Chloride 105 96 - 110 mmol/L LAB CHEMISTRY METHOD 07/19/2024 12:[address] [facility] CO2 28 21 - 32 mmol/L LAB CHEMISTRY METHOD 07/19/2024 12:[address] [facility] Anion Gap 8 3 - 11 LAB CHEMISTRY METHOD 07/19/2024 12:[address] [facility] Glucose 90 70 - 100 mg/dL LAB CHEMISTRY METHOD 07/19/2024 12:[address] [facility] BUN 16 5 - 25 mg/dL LAB CHEMISTRY METHOD 07/19/2024 12:[address] [facility] Creatinine 0.70 0.50 - 1.10 mg/dL LAB CHEMISTRY METHOD 07/19/2024 12:[address] [facility] eGFR 83 >=60 mL/min/1. 73m2 LAB CHEMISTRY METHOD 07/19/2024 12:[address] [facility] Comment:Calculation based on the Chronic Kidney Disease Epidemiology Collaboration (CKD-EPI) equation refit without adjustment for race. BUN/Creatinine Ratio 22.9 LAB CHEMISTRY METHOD 07/19/2024 12:[address] [facility] Calcium 9.1 8.5 - 10.5 mg/dL LAB CHEMISTRY METHOD 07/19/2024 12:[address] [facility] Blood Venous blood specimen / Unknown Venipuncture / Unknown 07/19/2024 7:00 AM EDT 07/19/2024 11:18 AM EDT us Ken Good MD LAB BLOOD ORDERABLES Final Resul t [facility] [address] [place] [address], [place] [phone] * (ABNORMAL) Complete blood count (07/19/2024 7:00 AM EDT) WBC 6.0 4.8 - 10.8 K/mcL LAB HEMETOLOGY METHOD 07/19/2024 1:09 PM EDT [facility] RBC 4.00 3.80 - 4.80 M/mcL LAB HEMETOLOGY [facility] Hemoglobin 11.3(L) 11.5 - 16.0 g/dL LAB HEMETOLOGY METHOD 07/19/2024 1:09 PM EDT [facility] Hematocrit 36.9 35.0 - 47.0 % LAB HEMETOLOGY METHOD 07/19/2024 1:09 PM EDT [facility] MCV 92.0 79.0 - 98.0 FL LAB HEMETOLOGY METHOD 07/19/2024 1:[address] [facility] MCH 28.2 27.0 - 32.0 pcg LAB HEMETOLOGY METHOD 07/19/2024 1:[address] [facility] MCHC 30.6(L) 32.0 - 37.0 g/dL LAB HEMETOLOGY METHOD 07/19/2024 1:[address] [facility] RDW 14.3 11.0 - 15.0 % LAB HEMETOLOGY METHOD 07/19/2024 1:[address] [facility] Platelets 307 130 - 400 K/mcL LAB HEMETOLOGY METHOD 07/19[facility]2024 [facility] MPV 11.1(H) 7.0 - 11.0 FL LAB HEMETOLOGY METHOD 07/19/2024 1:09 PM EDT [facility] NRBC 0.0 <1.0 % LAB [facility] METHOD 07/19/2024 1:09 PM EDT [facility] NRBC Absolute 0.00 <0.10 K/mcL [facility] 07/19/2024 1:09 PM EDT [facility] Blood Venous blood specimen / Unknown Venipuncture / Unknown 07/19/2024 7:00 AM EDT 07/19/2024 11:18 AM EDT us Ken Godo MD LAB BLOOD ORDERABLES Final Resul t [facility] [address] [place] [address], documented in this encounter Visit Diagnoses Diagnosis Presence of left artificial knee joint documented in this encounter Care Teams Cafeteria Assistant Relationship Specialty Start Date End Date Any Chu NP [address] [place] [address] PCP - General 08/14/22 documented as of this encounter
--- OUTSIDE RECORDS SUMMARY | 2025-01-21 09:07 | XMS_ITS | Clinical Summary ---
Author Organization [facility] Address [address] [place] [address] Care Team Providers Care Substation Operator Name Role Phone Osman Wilkinson MD Primary Care Provider [phone] Allergies Active Allergy Reactions Criticality Noted Date [...] age to complete this topic Care Teams Substation Operator Relationship Specialty Start Date End Date Osman Wilkinson MD [address] [address] PCP - General Internal Medicine 4/7/22
--- OUTSIDE RECORDS SUMMARY | 2025-01-21 09:07 | XMS_ITS | Clinical Summary ---
Author Organization [facility] Address [address] [place] [address] Care Team Providers Care Records Analysis Manager Name Role Phone Woodylavelle Osman Ariane Primary Care Provider Allergies Active Allergy Reactions Criticality Noted Date Comments Pollen Extracts Unknown Low 11/01/2019 Medications vitamins A,C,E-zinc-leana er [id number] mlax-ic-shkk capsule Take 1 capsule by mouth. Active [...] Info) Description 03/02/2025 1:30 PM EST Follow-Up [address] [address] Dunia Walls MD [address] [place] [id number] 08/31/2025 1:30 PM EDT Follow-Up [address] [address] Dunia Walls MD [address] [place] [phone] Health Maintenance Due Date Last Done Comments [...] this topic Insurance AETNA MCR Care Teams Records Analysis Manager Relationship Specialty Start Date End Date Osman Wilkinson [address] [place] [address] PCP - General Internal Medicine 08/21/18
--- OUTSIDE RECORDS SUMMARY | 2025-01-21 09:07 | XMS_ITS | Encounter Summary ---
Author Organization [facility] Address [address] [place] [phone] Care Team Providers Care Reeling And Tubing Machine Operator Name Role Phone Any Chu BRAND DEVELOPMENT MANAGER Primary Care Provider [phone] Encounter Details Date Type Department Care Team (Late st Contact Info) Description 07/15/2024 Lab Requisition [facility] - Main Lab [address] [place] [address] Ken Good MD 38 [facility] [address] [place], [address] Presence of left artificial knee joint [...] Office Visit Gastroenterology - 299 [address] [facility] [address] [place] [phone] Sameer Pastrana MD 299 [facility] [address] [place] [address] documented as of this encounter Procedures Procedure [...] mmol/L LAB CHEMISTRY METHOD 07/15/2024 9:27 AM [facility] Potassium 4.5 3.5 - 5.5 mmol/L LAB CHEMISTRY METHOD 07/15/2024 9:27 AM [facility] Chloride 107 96 - 110 mmol/L LAB CHEMISTRY METHOD 07/15/2024 9:27 AM [facility] CO2 27 21 - 32 mmol/L LAB CHEMISTRY METHOD 07/15/2024 9:27 AM [facility] Anion Gap 4 3 - 11 LAB CHEMISTRY METHOD 07/15/2024 9:27 AM [facility] Glucose 89 70 - 100 mg/dL LAB CHEMISTRY METHOD 07/15/2024 9:27 AM [facility] BUN 21 5 - 25 mg/dL LAB CHEMISTRY METHOD 07/15/2024 9:27 AM [facility] Creatinine 0.75 0.50 - 1.10 mg/dL LAB CHEMISTRY METHOD 07/15/2024 9:27 AM [facility] eGFR 77 >=60 mL/min/1. 73m2 LAB CHEMISTRY METHOD 07/15/2024 9:27 AM [facility] Comment:Calculation based on the Chronic Kidney Disease Epidemiology Collaboration (CKD-EPI) equation refit without adjustment for race. BUN/Creatinine Ratio 28.0 LAB CHEMISTRY METHOD 07/15/2024 9:27 AM [facility] Calcium 8.7 8.5 - 10.5 mg/dL LAB CHEMISTRY METHOD 07/15/2024 9:27 AM [facility] AST (SGOT) 14 10 - 42 unit/L LAB CHEMISTRY METHOD 07/15/2024 9:27 AM EDT [facility] ALT (SGPT) 13 10 - 60 unit/L LAB CHEMISTRY METHOD 07/15/2024 9:27 AM EDT [facility] Alkaline Phosphatase 45 42 - 121 unit/L LAB CHEMISTRY METHOD 07/15/2024 9:27 AM EDT [facility] Total Protein 5.6(L) 6.0 - 8.0 g/dL LAB CHEMISTRY METHOD 07/15/2024 9:27 AM T [facility] Albumin 2.7(L) 3.2 - 5.0 g/dL LAB CHEMISTRY METHOD 07/15/2024 9:27 AM T [facility] Total Bilirubin 0.4 0.0 - 1.4 mg/dL LAB CHEMISTRY METHOD 07/15/2024 9:27 AM T [facility] Blood Venous blood specimen / Unknown Venipuncture / Unknown 07/15/2024 5:55 AM EDT 07/15/2024 8:25 AM EDT us Ken Good MD LAB BLOOD ORDERABLES Final Resul t [facility] [address] [place] [address], [place] [phone] * (ABNORMAL) Complete blood count (07/15/2024 5:55 AM EDT) WBC 5.1 4.8 - 10.8 K/mcL LAB HEMETOLOGY METHOD 07/15/2024 8:46 AM EDT [facility] RBC 3.50(L) 3.80 - 4.80 M/mcL LAB HEMETOLOGY METHOD 07/15/2024 8:46 AM EDT [facility] Hemoglobin 9.9(L) 11.5 - 16.0 g/dL LAB HEMETOLOGY METHOD 07/15/2024 8:46 AM EDT [facility] Hematocrit 31.8(L) 35.0 - 47.0 % LAB HEMETOLOGY METHOD 07/15/2024 8:46 AM EDT [facility] MCV 91.1 79.0 - 98.0 FL LAB HEMETOLOGY METHOD 07/15/2024 8:46 AM EDT [facility] MCH 28.4 27.0 - 32.0 pcg LAB HEMETOLOGY METHOD 07/15/2024 8:46 AM EDT [facility] MCHC 31.1(L) 32.0 - 37.0 g/dL LAB HEMETOLOGY METHOD 07/15/2024 8:46 AM EDT [facility] RDW 14.6 11.0 - 15.0 % LAB HEMETOLOGY METHOD 07/15/2024 8:46 AM EDT [facility] Platelets 190 130 - 400 K/mcL LAB HEMETOLOGY METHOD 07/15/2024 8:46 AM EDT [facility] MPV 12.1(H) 7.0 - 11.0 FL LAB HEMETOLOGY METHOD 07/15/2024 8:46 AM EDT [facility] NRBC 0.0 <1.0 % LAB HEMETOLOGY METHOD 07/15/2024 8:46 AM EDT [facility] NRBC Absolute 0.00 <0.10 K/mcL LAB HEMETOLOGY METHOD 07/15/2024 8:46 AM EDT [facility] Blood Venous blood specimen / Unknown Venipuncture / Unknown 07/15/2024 5:55 AM EDT 07/15/2024 8:25 AM EDT us Ken Good MD LAB BLOOD ORDERABLES Final Resul t [facility] [address] [place] [address], documented in this encounter Visit Diagnoses Diagnosis Presence of left artificial knee joint documented in this encounter Care Teams Reeling And Tubing Machine Operator Relationship Specialty Start Date End Date Any Chu NP [address] [place] [address] PCP - General 08/14/22 documented as of this encounter
--- OUTSIDE RECORDS SUMMARY | 2025-01-21 09:07 | XMS_ITS | Clinical Summary ---
Author Organization [facility] 299 [facility] Address [address] [place] [address] Phone Care Team Providers Care Forest Aide Name Role Phone Any Chu NP Primary Care Provider [phone] Allergies Active Allergy Reactions Criticality Noted Date Comments Levonorgestrel-Ethinyl Estrad 2024 Medications diclofenac (VOLTAREN) 75 mg EC tablet Take 75 mg by mouth daily as needed. 2 Active multivitamin (MULTIPLE VITAMINS ORAL) TAKE 1 TABLET DAILY. 8 Active glucosamine-cho ndroitin 500-400 mg capsule Take by mouth. Activ e cyanocobalamin (VITAMIN B-12) 1,000 mcg tablet Take 1 tablet (1,000 mcg total) by mouth. Active calc/D3/mag cit,ox/K2/herb3 53 (ALIVE CALCIUM-VITAMIN D3-K2 ORAL) Take by mouth. Act juan alberto diclofenac (VOLTAREN) 1 % topical gel Apply 2 g topically 2 (two) times a day. 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 vein 03/18/2017 Macular degeneration 03/18/2017 Encounters Date Type Department Care Team Description 10/25/2024 11:30 AM EDT Office Visit Orthopedic Surgery [facility] [address] [facility] [address] [place] [address] Connor Esteban MD S/P reverse total shoulder arthroplasty, left (Primary Dx); Rotator cuff tear arthropathy, right from Last 3 Months Surgical History Surgery Date Site/Laterality Comments TOTAL KNEE ARTHROPLASTY PROCEDURE: SC ARTHRP KNE CONDYLE&PLATU MEDIAL&LAT COMPARTMENTS TONSILLECTOMY ADENOIDECTOMY, BILATERAL MYRINGOTOMY AND TUBES PROCEDURE: SC TONSILLECTOMY & ADENOIDECTOMY <AGE 12 SHOULDER SURGERY [...] Care Team (Late st Contact Info) Description 02/24/2025 8:30 AM EST Office Visit Gastroenterology - 299 [address] 299 [facility] [address] [place] [phone] Sameer Pastrana MD 299 [facility] [address] [place] [phone] Health Maintenance Due Date Last Done Comments DTaP,Tdap,and Td Vaccines (1 - Tdap) 09/25/1954 Pneumococcal Vaccine: 50+ Years (1 of 1 - PCV) 09/25/1985 Zoster Vaccines (1 of 2) 09/25/1985 Falls Risk Assessment 02/22/2022 Medicare Annual Wellness Visit 02/22/2022 Osteoporosis Screening (Bone Density Screening) 02/22/2022 Social Influencers of Health Screening 02/22/2022 Depression Screening 03/17/2024 COVID-19 Vaccine (2023- season) 2024 11/13/2023, 07/21/2023, 12/23/2022, Additional history [...] Date/Time Associated Diagnosis Comments XR SHOULDER 2+ VIEWS RIGHT Routine 10/25/2024 11:35 AM EDT Pain from Last 3 Months Results * XR Shoulder 2+ Views Right (10/25/2024 11:35 AM EDT) Anatomical Region Laterality Modality Upper Extremities, Shoulder Right Comp uted Radiography Narrative 10/25/2024 11:49 AM EDT Right shoulder x-rays October 25, 2024. AP, Grashey, Y lateral, axillary views. Severe rotator cuff arthropathy with significant arthritic changes. Located glenohumeral joint. us Connor A Eulalia MD IMG XR PROCEDURES Final Result from Last 3 Months Insurance A[employer] MEDICARE ADVANTAGE AETNA Care Teams Forest Aide Relationship Specialty Start Date End Date Any Chu NP [address] [place] [address] [place] [address] PCP - General 08/14/22
--- OUTSIDE RECORDS SUMMARY | 2025-01-21 09:08 | XMS_ITS | Encounter Summary ---
Author Organization [facility] Address [address] [place] [phone] Care Team Providers Care Nitro Worker Name Role Phone Any Chu MONOTYPER Primary Care Provider [phone] Encounter Details Date Type Department Care Team (Late Contact Info) Description 07/24/2024 Lab Requisition [facility] - Main Lab [address] [place] [address] Ken Good MD 38 [facility] [address] [place], [address] Presence of left artificial knee joint [...] Office Visit Gastroenterology - 299 [address] [facility] [address] [place] [phone] Sameer Pastrana MD 299 [facility] 419 [place] [address] documented as of this encounter Visit Diagnoses Diagnosis Presence of left artificial knee joint documented in this encounter Care Teams Nitro Worker Relationship Specialty Start Date End Date Any Chu NP [address] [place] [address] PCP - General 08/14/22 documented as of this encounter
--- OUTSIDE RECORDS SUMMARY | 2025-01-21 09:08 | XMS_ITS | Clinical Summary ---
Author Organization [facility] Address [address] [place] [address] Phone Care Team Providers Care Roller Leveler Name Role Phone Osman Wilkinson MD Primary Care Provid er Allergies Active Allergy Reactions Criticality Noted Date Comments Pollen Extracts Low 11/01/2019 Medications diclofenac sodium (VOLTAREN) 75 MG EC tablet Take 75 mg by mouth 2 (two) times a day. For joint pain Active vitamins A,C,E-zinc-leana er (PRESERVISION AREDS) [id number] ihdl-or-eiay Cap Take 1 capsule by mouth 2 [...] this topic Medical Devices Implanted Type Area Diesel Engineer Device Identifier Shelf Expiration Date Model / [...] Advance Directives For more information, please contact: [phone] (9AM - 5PM [facility], Friday-Friday) Documents on File Type Date Recorded Patient Technical Analyst Expl anation Healthcare Proxy 11/05/2019 Care Teams Roller Leveler Relationship Specialty Start Date End Date Osman Wilkinson MD [address] [place] [address] PCP - General Internal Medicine 05/21/19 Additional Source Comments The information contained in this document represents components of the legal health record. It is not the complete legal health record.[facility]
--- OUTSIDE RECORDS SUMMARY | 2025-01-21 09:08 | XMS_ITS | Encounter Summary ---
Author Organization [facility] Address [address] [place] [address] Phone Care Team Providers Care Fire Technology Instructor Name Role Phone Osman Wilkinson MD Primary Care Provid er Encounter Details Date Type Department Care Team (Late st Contact Info) Description 11/05/2019 Procedure Pass [facility] LW PERIOP DEPT [address] [place] [address] Social History Tobacco Use Types Packs/Day Years [...] on filedocumented in this encounter Care Teams Fire Technology Instructor Relationship Specialty Start Date End Date Osman Wilkinson MD [address] [place] [address] PCP - General Internal Medicine 05/21/19 documented as of this encounter Additional Source Comments The information contained in this document represents components of the legal health record. It is not the complete legal health record.[facility]
== END 2025-01-20 08:35 | disposition home or self-care (01) ==
LOC: HO.HOSX 08:34
PROVIDERS: Visit Provider Orthopaedic Surgery
DX: M25.561 Pain in right knee (principal); M25.562 Pain in left knee; M53.3 Sacrococcygeal disorders, not elsewhere classified; M54.50 Low back pain, unspecified; G89.29 Other chronic pain; Z79.82 Long term (current) use of aspirin; Z79.899 Other long term (current) drug therapy; Z96.653 Presence of artificial knee joint, bilateral
CPT/HCPCS: 73562

== ENCOUNTER 2025-01-20 13:28 | Outpatient (AMB) | payer OTHER, SELFPAY ==
--- OUTSIDE RECORDS SUMMARY | 2020-05-30 16:46 | XMS_ITS | Encounter Summary ---
Author Organization [facility] Address [address] [place] [address] Care Team Providers Care Truck Repair Supervisor Name Role Phone Unknown Primary Care Provider [phone] Encounter Details Date Type Department Care Team (Late st Contact Info) Description 05/30/2020 5:46 PM EDT Hospital Encounter [facility] [place] [address] [place] [address] [facility]abb PA [address] [facility] [address] [place] [address] Social History Tobacco Use Types Packs/Day Years [...] on filedocumented in this encounter Care Teams Truck Repair Supervisor Relationship Specialty Start Date End Date Unknown Unknow Provider Address PCP - General 05/30/20 07/06/20 documented as of this encounter
[2025-01-20 13:48] VITALS: BMI 32.9
--- NOTE | 2025-01-20 13:48 | MHC.OFFVIS ---
Vital Signs 01/20/25 13:48 Height 5 ft 2 in Weight 180 lb BMI 32.9 Intake Visit Reasons: OV- L TKA w/DR 07/12/24, Bilateral total knee replacements, Low back pain Intake Note: Gayle is a 89 year old female who presents with complaints of mild intermittent discomfort in her left knee after undergoing left total knee replacement surgery on 07/12/2024. States she was prescribed tramadol by her PCP and this has been helping manage her pain. The patient has also undergone right total knee replacement surgery in the past. She reports minimal discomfort in her right knee. She continues to go to the [facility] to exercise. She also goes to physical therapy for chronic right-sided low back pain. Allergies No Known Allergies Allergy (Verified 01/20/25 13:56) Medication List - Last Reconciled 01/20/25 by Dhruv Lewis MD acetaminophen 650 mg (2 x 325 mg) PO Q6H PRN 30 days aspirin 325 mg PO BID 42 days calcium carbonate-vitamin D3 600 mg-5 mcg (200 unit) 1 tab PO BID celecoxib 200 mg PO Q24H PRN gabapentin 100 mg PO BEDTIME 7 days sennosides (Senna Lax) 17.2 mg (2 x 8.6 mg) PO BEDTIME 30 days sodium fluoride-pot nitrate 1.1-5 % 1 appl PO BEDTIME walker Folding front wheeled walker [facility] Medical History History of MRSA infection Heartburn Pre-diabetes Osteopenia Nonexudative age-related macular degeneration DJD (degenerative joint disease) Female bladder prolapse Arthritis Surgical History Hx of eye surgery Hx of tonsillectomy Hx of left cataract extraction History of esophagogastroduodenoscopy (EGD) H/O colonoscopy Hx of breast biopsy Hx of shoulder surgery History of total right knee replacement History of carpal tunnel release Social History Household Members: Spouse Housing: House Are you a primary clinical care manager to a significant other at home: No Do you presently have visiting nurse or other home services: No Alcohol intake: never Comment: advised of trip hazard Patient Tobacco Use Status: Former Tobacco user Tobacco use type: Cigarette Years Smoked: 10 Substance Use Type: Marijuana service: No Current occupational status: retired Physical Exam Vital Signs: BMI result Body Mass Index 32.9 Extrem Other: Bilateral knee examination shows that the surgical incisions are well healed, no erythema, full active extension and flexion to 120 degrees, her patellae track well, no instability Results Reviewed Results Reviewed: X-rays of the patient's bilateral knees taken today show total knee arthroplasties in good position with no signs of loosening, no acute bony abnormalities Assessment & Plan Assessment & Plan (1) Right knee pain: Code(s): M25.561 - Pain in right knee Category: Medical (2) Left knee pain: Code(s): M25.562 - Pain in left knee Category: Medical (3) Low Back Pain: Code(s): M54.50 - Low back pain, unspecified Plan Ms. Ji continues to do well after undergoing bilateral total knee replacement surgeries. She will continue with her exercise program. She does know to take antibiotics before any dental work. She does go to physical therapy currently for hip and low back pain. Thus, I will refer her to Dr. Sky in our pain management department for possible SI joint for low back cortisone injections per her request. She will contact me prior to her annual follow-up appointment should any questions or concerns arise. Feel free to call me at any time should questions regarding her orthopedic management arise. I spent 21 minutes in reviewing the patient's records and imaging studies, seeing the patient and documenting in the medical record. Orders: Orders XR Knee Mj 3V Today M25.561 - Pain in right knee, M25.562 - Pain in left knee Referrals Pain Management Referral G89.29 - Other chronic pain, M53.3 - Sacrococcygeal disorders, not elsewhere classified Coding Level of Care Code Est Pt Level 3 (52186) Complex EM visit Add On G2211 Diagnoses Right knee pain M25.561 Left knee pain M25.562 Low Back Pain M54.50
--- OUTSIDE RECORDS SUMMARY | 2025-01-20 16:24 | XMS_ITS | Data Portability ---
Author Organization [facility], Main Office Address [address] [facility] [address] [place] [address] Care Team Providers Care Molding Machine Operator Name Role Phone [facility] OTHER [facility] Primary Care Provider Assessment [...] [facility] 09:25:17 Osteoarthriti s of knee 772921961 Active 2024 Not Available [facility] 09:26:29 Muscle weakness 13482433 Active 2024 Not Available [facility] 5 15:26:29 Difficulty walking 991693322 Active 2024 Not Available [facility] and [...] (RSV) MAB, unspecified 02/03/[address] [facility] 07/16/2024 11:55:57 influenza, unspecified formulation 02/23/2019 completed Aramis Morrison [facility] 07/16/2024 11:56:08 influenza, unspecified formulation 02/03/2021 completed Aramis Morrison null, [facility] 07/16/2024 11:56:14 influenza, unspecified formulation 12/23/2022 completed Aramis Morrison [facility] 07/16/2024 11:56:20 SARS-COV-2 (COVID-19) vaccine, UNSPECIFIED 01/16/2021 completed Aramis Morrison [facility] 07/16/2024 11:56:30 SARS-COV-2 (COVID-19) vaccine, UNSPECIFIED 07/16/2021 completed Aramis Prince [facility] 07/16/2024 11:56:34 SARS-COV-2 (COVID-19) vaccine, UNSPECIFIED 12/23/2022 completed Aramis Morrison [facility] 07/16/2024 11:56:39 SARS-COV-2 (COVID-19) vaccine, UNSPECIFIED 07/21/2023 completed Aramis Morrison [facility] 07/16/2024 11:56:43 SARS-COV-2 (COVID-19) vaccine, UNSPECIFIED 11/13/2023 completed Aramis Prince [facility] 07/16/2024 11:56:48 Past Encounters Encounter ID Performer Location Encounter Start Date Encounter Closed Date Diagnosis/Indication Diagnosis SNOMED-CT Code Diagnosis ICD10 Code Diagnosis IMO Codes Diagnosis Note [id number] ISREAL GRIMES [facility] [place] [address] 07/16/2024 09:06:32 07/19/2024 15:00:30 Osteoarthritis of knee 248003937 M17.9 sp left total kneecont calcium and vit d Follow-up status 5267471 05 Z51.89 76499 sp left total kneeMethoc arbamol 500 mg tidgabapen tin 100 mg qhstylenol prn = does not want it scheduledd c oxycodone per pt requestasp rin 325 mg daily x 42 days post opadmit to PT OT Prediabetes 805865418 R7 3.03 761208 monitor outpt Acute constipation 02936 9006 K59.00 108522 had sm BM this amhad normal BM up until friday, now post opmonitor bowelsinit iate bowel protocol Bilateral sensation of blocked ears 8545180205 7694827 H93.8X3 81352146 no painwants to hold off on debrox and flush [id number] ISREAL GRIMES [place] [address] [place] [address] 07/19/2024 12:39:32 07/21/2024 07:09:00 Osteoarthritis of knee 828443951 M17.9 sp left total kneecont calcium and vit df/up with pcp Follow-up status 8701073 05 Z51.89 93468 sp left total kneeMethoc arbamol 500 mg tidgabapen tin 100 mg qhstylenol prnasprin 325 mg daily x 42 days post opcomplete d PT [place]/up with ortho as planneddc home with services Prediabetes 324334579 R7 3.03 714503 monitor outptf/up with pcp Acute constipation 9006 K59.00 459602 resolved post opmonitor bowels at homenot on opioids Bilateral sensation of blocked ears 0527872956 0440203 H93.8X3 75720774 suspect allergiess uggested antihistim ine, pt will monitor at home and f/up w/ pcp if needed Health Concerns Section Related Observation LastModified by Organization Detai ls LastModified Time None Recorded Concern Status LastModified by Organization Details LastModified Time None Recorded Advance Directives Directive None Recorded Payers Insurance Date Sequence Insurance Name Policy Number Policy Wharton Covered Member ID Wharton Member ID Guarantor Name 07/22/2024 1 [employer] (MEDICARE REPLACEMENT/ ADVANTAGE - PPO) [id number] [facility] [id number] [facility] Notes Date Note Type Note Provider Name and Address Organization Details Recorded Time 07/16/2024 text/html Pt is an 88 yo female being seen for initial intake visit. Pt underwent a left total knee dt OA. Surgery was uneventful and she was discharge to [place] for a STR stay. Pt seen and [...] cane outside. Limited PMH. ISREAL GRIMES [address], [address], [place], [address], [facility] [employer] 07/16/2024 11:35:55 07/19/2024 text/html Pt is an 88 yo female being seen for discharge summary visit. Pt underwent a left total knee dt OA. Surgery was uneventful and she was discharge to [place] for a STR stay. Seeing pt today who feels ready to dc home. Her and son are at the bedside and are agreeable to her dc. SW is sending out referals. Pt is medically clear for dc home with meds and services at this time. [facility]. ISREAL GRIMES [address], [address], [place], [address], [facility] [employer] 07/20/2024 08:13:17 OBGyn Episode No OBEpisode recorded.
--- OUTSIDE RECORDS SUMMARY | 2025-01-20 16:24 | XMS_ITS | Clinical Summary ---
Author Organization [facility] Address [address] [place] [address] Care Team Providers Care Automobile Spring Repairer Name Role Phone Woodylavelle Osman Ariane Primary Care Provider Allergies Active Allergy Reactions Criticality Noted Date Comments Pollen Extracts Unknown Low 11/01/2019 Medications vitamins A,C,E-zinc-leana er 14,[id number] izqn-jh-exvj capsule Take 1 capsule by mouth. Active [...] Info) Description 03/02/2025 1:30 PM EST Follow-Up [address] [address] Dunia Walls MD [address] [place] [phone] 08/31/2025 1:30 PM EDT Follow-Up [address] [address] Dunia Walls MD [address] [place] [address] Health Maintenance Due Date Last Done Comments DTaP,Tdap,and Td Vaccines (1 - Tdap) 09/25/1957 Osteoporosis Screening 09/25/1985 Pneumococcal Vaccine: 50+ Years (1 of 1 - PCV) 09/25/1985 Zoster Vaccines (1 of 2) 09/25/1985 Alcohol/Substance Use Screening 03/17/2024 Depression Screening and Follow-Up 03/17/2024 Health Care Proxy Review 03/17/2024 Social Drivers of Health Annual Screening 03/17/2024 COVID-19 Vaccine ( season) 2024 11/13/2023, 11/13/2023, 11/13/2023, Additional history exists Influenza Vaccine (#1) 2024 , 02/03/2021, 02/23/2019 RSV Vaccine (60+ years old and patients) Completed 02/03/2023 Hepatitis B Vaccines Aged Out No long er eligible based on patient's age to complete this topic Insurance [employer] MCR Care Teams Automobile Spring Repairer Relationship Specialty Start Date End Date Osman Wilkinson [address] [place] [address] PCP - General Internal Medicine 08/21/18
--- OUTSIDE RECORDS SUMMARY | 2025-01-20 16:24 | XMS_ITS | Clinical Summary ---
Author Organization [facility] Address [address] [place] [address] Phone Care Team Providers Care Low Vision Therapist Name Role Phone Osman Wilkinson MD Primary Care Provid er Allergies Active Allergy Reactions Criticality Noted Date Comments Pollen Extracts Low 11/01/2019 Medications diclofenac sodium (VOLTAREN) 75 MG EC tablet Take 75 mg by mouth 2 (two) times a day. For joint pain Active vitamins A,C,E-zinc-leana er (PRESERVISION AREDS) 14,320226-200 agoj-ko-rjtj Cap Take 1 capsule by mouth 2 (two) times a day with meals. Active Medication-Free Text otc joint medication Active acetaminophen (TYLENOL) 325 mg tablet Take 2 tablets (650 mg total) by mouth every 6 (six) hours as needed for mild pain. 0 Active oxyCODONE 5 MG immediate release tablet Take 1 tablet (5 mg total) by mouth every 4 (four) hours as needed for severe pain. 5 tablet 0 Active Social History Tobacco Use Types Packs/Day Years Used Date Smoking Tobacco: Former Cigarettes Q uit: 10/31/1966 Smokeless Tobacco: Never Alcohol Use Standard Drinks/Week Comments Not Currently 0 (1 standard drink = 0.6 oz pur e alcohol) social and rare Education Answer Date Recorded Are you interested in more education? Not on ivone e 07/12/2022 Are you concerned about learning? Not on file 07/12/2022 No 07/12/2022 No 07/12/2022 Digital Access Answer Date Recorded No 08/10/2022 No 08/10/2022 No 08/10/2022 Reliable internet access at home? Not on file 08/10/2022 Device with a working camera? Not on file Comments Unknown Sex and Gender Information Value Date Recorded Sex Assigned at Not on file Legal Sex Female 12:08 PM EST Gender Identity Not on file Sexual Orientation Not on file Last Filed Vital Signs Vital Sign Reading Time Taken Comments Blood Pressure 139/70 11/05/2019 11:15 AM EDT Pulse 68 11/05/2019 11:15 AM EDT Temperature 36.4 C (97.6 F) 11/05/2019 9:45 AM EDT Respiratory Rate 18 11/05/2019 11:15 AM EDT Oxygen Saturation 94% 11/05/2019 11:15 AM EDT Inhaled Oxygen Concentration - - Weight 93.9 kg (207 lb) 11/05/2019 7:07 AM EDT Height 162.6 cm (5' 4 ) 11/05/2019 7:07 AM EDT Body Mass Index 35.53 11/05/2019 7:07 AM EDT Plan of Treatment Health Maintenance Due Date Last Done Comments Adult Td,Tdap Booster 1935 DEPRESSION SCREENING 1947 PNEUMOCOCCAL VACCINES (50+ years) (1 of 1 - PCV) 09/25/1985 ZOSTER VACCINES (1 of 2) 09/25/1985 OSTEOPOROSIS SCREENING INITI AL (ONE-TIME) 09/25/2000 RSV VACCINE (1 - 1-dose 75+ series) 09/25/2010 INFLUENZA VACCINE (#1) 2024 , 02/23/2019 COVID-19 VACCINE (2 - 2024-2 6 season) 2024 01/16/2021 HEPATITIS A VACCINES Aged Out No long er eligible based on patient's age to complete this topic HIB VACCINES Aged Out No longer eligi ble based on patient's age to complete this topic MENINGOCOCCAL VACCINES (ACWY) Aged Out No longer eligible based on patient's age to complete this topic MENINGOCOCCAL VACCINES (B) Aged Out N o longer eligible based on patient's age to complete this topic Medical Devices Implanted Type Area Senior Care Manager Device Identifier Shelf Expiration Date Model / Serial / Lot Dental Knee-11/01/2015 Implanted:2015 (Quantity not on file) Insurance MEDICARE PART A & B MEDICARE PART A & B MEDICARE PART A & B MEDICARE PART A & B MEDICARE PART A & B MEDICARE PART A & B MEDICARE PART A & B MEDICARE PART A & B MEDICARE PART A & B Advance Directives For more information, please contact: [phone] (9AM - 5PM [facility], Friday-Friday) Documents on File Type Date Recorded Patient Post Framer Expl anation Healthcare Proxy 11/05/2019 Care Teams Low Vision Therapist Relationship Specialty Start Date End Date Osman Wilkinson MD [address] [place] [address] PCP - General Internal Medicine 05/21/19 Additional Source Comments The information contained in this document represents components of the legal health record. It is not the complete legal health record.[facility]
--- OUTSIDE RECORDS SUMMARY | 2025-01-20 16:24 | XMS_ITS | Encounter Summary ---
Author Organization [facility] Address [address] [place] [address] Phone Care Team Providers Care Radiology Supervisor Name Role Phone Osman Wilkinson MD Primary Care Provid er Encounter Details Date Type Department Care Team (Late st Contact Info) Description 11/05/2019 Procedure Pass ORALIA LW PERIOP DEPT [address] [place] [address] Social History Tobacco Use Types Packs/Day Years [...] on filedocumented in this encounter Care Teams Radiology Supervisor Relationship Specialty Start Date End Date Osman Wilkinson MD [address] [place] [address] PCP - General Internal Medicine 05/21/19 documented as of this encounter Additional Source Comments The information contained in this document represents components of the legal health record. It is not the complete legal health record.[facility]
--- OUTSIDE RECORDS SUMMARY | 2025-01-20 16:24 | XMS_ITS | Clinical Summary ---
Author Organization [facility] Address [address] [place] [address] Care Team Providers Care Property Utilization Manager Name Role Phone Osman Wilkinson MD Primary Care Provider [phone]- [phone] Allergies Active Allergy Reactions Criticality Noted Date [...] 75+ series) 09/25/2010 COVID-19 Vaccine (3 - 2024-2 6 season) 2024 06/21/2020, 05/26/2020 Influenza Vaccine (#1) 2024 Hepatitis B Vaccines Aged Out No long er eligible based on patient's age to complete this topic RSV Ped < 20 months Aged Out No longe r eligible based on patient's age to complete this topic Care Teams Property Utilization Manager Relationship Specialty Start Date End Date Osman Wilkinson MD [address] [address] PCP - General Internal Medicine 4/7/22
--- OUTSIDE RECORDS SUMMARY | 2025-01-20 16:24 | XMS_ITS | Clinical Summary ---
Author Organization [facility] Address [address] [place] [address] Care Team Providers Care Four Slide Operator Name Role Phone Osman Wilkinson MD Primary Care Provider [phone]- [phone] Allergies No known active allergies Medications diclofenac [...] Health Maintenance Due Date Last Done Comments Advance Care Planning 1935 DTaP/Tdap/Td Vaccines (1 - Tdap) 09/25/1954 Pneumococcal Vaccines 50+ (1 of 1 - PCV) 09/25/1985 Zoster (Shingles) Vaccine (1 of 2) 09/25/1985 DXA Bone Density (Females,Ages 65 and older) 09/25/2000 RSV Vaccine 50 years and older and Patients (1 - 1-dose 75+ series) 09/25/2010 Influenza Vaccine 10/15/2024 12/23/2022, , 02/23/2019 COVID-19 Vaccine ( season) 2024 12/23/2022, 07/09/2022, 01/12/2022, Additional history exists Hepatitis B Vaccines Aged Out No long er eligible based on patient's age to complete this topic Insurance MEDICARE PART A & B MEDICARE PART A & B AETNA MGD MEDICARE Care Teams Four Slide Operator Relationship Specialty Start Date End Date Osman Wilkinson MD [address] [place] [address] PCP - General 07/07/20
== END 2025-01-20 14:15 | disposition home or self-care (01) ==
LOC: HO.HOS 13:29
PROVIDERS: PCP Family Medicine; Visit Provider Orthopaedic Surgery
DX: M25.561 Pain in right knee (principal); M25.562 Pain in left knee; M54.50 Low back pain, unspecified
CPT/HCPCS: 99213; G2211

== ENCOUNTER → 2025-01-20 13:36 | Outpatient (BNV) | payer OTHER, SELFPAY | PROVIDERS: Visit Provider Radiology Diagnostic Radiology | DX: M25.561 Pain in right knee (principal); M25.562 Pain in left knee | CPT/HCPCS: 73562 ==

== ENCOUNTER 2025-02-22 09:32 | Outpatient (AMB) | payer MEDICARE, SELFPAY ==
--- NOTE | 2025-02-22 09:33 | MHC.OFFVIS ---
Vital Signs 02/22/25 09:39 Height 5 ft 2 in Weight 180 lb BMI 32.9 BP 130/61 Blood Pressure Location Lt brachial Position Sitting Pulse 77 Pulse Source Pulse Oximeter Pulse Oximetry (%) 100 Oxygen Delivery Method Room Air Intake Visit Reasons: sacroccygeal disorder Intake Note: Pain today 0/10 Hotel Engineer Required: No Accompanied by: Self / Same As Patient Allergies No Known Allergies Allergy (Verified 02/22/25 09:36) Medication List - Last Reconciled 02/22/25 by ABBIE Gross acetaminophen 650 mg (2 x 325 mg) PO Q6H PRN 30 days aspirin 325 mg PO BID 42 days calcium carbonate-vitamin D3 600 mg-5 mcg (200 unit) 1 tab PO BID celecoxib 200 mg PO Q24H PRN gabapentin 100 mg PO BEDTIME 7 days sennosides (Senna Lax) 17.2 mg (2 x 8.6 mg) PO BEDTIME 30 days sodium fluoride-pot nitrate 1.1-5 % 1 appl PO BEDTIME tramadol 50 mg PO Q12H PRN walker Folding front wheeled walker HPI Comments Details: The patient is an 89-year-old female presenting for an evaluation of chronic low back pain with a referral for sacroiliac joint pain. She has experienced pain in the lower of her back for the past few years, which is intermittent, aching, and dull in character. The pain is exacerbated by prolonged forward bending, such as when cooking, and is relieved immediately by standing up straight. She reports that it is difficult to walk straight and she tends to lean forward while walking, using a cane for support. She has not used heat, ice, or Tylenol for this pain and has not had back X-rays previously. Her medical history includes bilateral total knee arthroplasties, with the left knee surgery performed three months ago, and a previous left shoulder surgery. She also has significant right shoulder pain and has been advised she needs a shoulder replacement, which she is hesitant about as it is her dominant arm. The patient has generalized arthritis, macular degeneration, and osteopenia, for which she intermittently takes calcium. She reports fecal and urinary incontinence, as well as a history of bladder prolapse and heartburn. She was tested for spinal stenosis years ago, which was negative. She also reports intermittent chronic right hip pain which affects how she climbs and descends stairs. For pain, she takes tramadol as needed, which is prescribed by her primary care provider. She reports reducing her use of tramadol and denies currently taking Tylenol, Celebrex, or gabapentin. She takes an [id number] supplement Joint Active for arthritis and an eye pill for macular degeneration. The patient is active, lives with her , and does her own cooking. She previously participated in water aerobics but has not done so for a long time. She lives on vacation to [place] for March and April. Pain Description - Location: Pain is located in the lower of the back, midline. Intermittent right lateral hip pain, no groin pain. - Quality: The pain is described as aching, sore, and dull. - Onset and Timing: The pain has been present for a few years and is intermittent. - Exacerbating Factors: Pain increases with prolonged forward bending, climbing and walking. - Relieving Factors: Pain is relieved by standing up straight. Tramadol is also effective. - Functional Interference: The pain causes difficulty with walking upright, and she tends to lean forward while ambulating. - Associated Symptoms: The patient denies buttock pain. Pain Management - Analgesia: The patient uses tramadol as needed for pain, not on a daily basis. - She has not been using Tylenol, heat, or ice for her current pain. - She reports her back pain is intermittent, aching, and dull. - Activities of Daily Living: She has difficulty walking straight and tends to lean forward, using a cane. - Prolonged bending forward while cooking aggravates her pain. - Affect: The patient expressed significant worry about the potential loss of mobility and ability to perform self-care, such as toileting, if she were to undergo a right shoulder replacement on her dominant side. - Aberrant Drug Related Behaviors: None noted; the patient reports she has consciously reduced her tramadol intake from daily to an as-needed basis. - Adverse Effects: None reported. [facility] Medical History History of MRSA infection Heartburn Pre-diabetes Osteopenia Nonexudative age-related macular degeneration DJD (degenerative joint disease) Female bladder prolapse Arthritis Surgical History Hx of eye surgery Hx of tonsillectomy Hx of left cataract extraction History of esophagogastroduodenoscopy (EGD) H/O colonoscopy Hx of breast biopsy Hx of shoulder surgery History of total right knee replacement History of carpal tunnel release Social History Household Members: Spouse Housing: House Are you a primary career guidance technician to a significant other at home: No Do you presently have visiting nurse or other home services: No Alcohol intake: never Comment: advised of trip hazard Patient Tobacco Use Status: Former Tobacco user Tobacco use type: Cigarette Years Smoked: 10 Substance Use Type: Marijuana service: No Current occupational status: retired Review of Systems Const Details: - Musculoskeletal: Reports intermittent, aching low back pain that worsens with bending forward and improves with standing straight. - Reports generalized arthritis and right shoulder pain that can be uncomfortable. - Reports difficulty walking straight up. - Denies pain when rising from a seated position. - Neurological: Denies heaviness or weakness in the legs or loss of balance. - Genitourinary: Reports nocturia, waking every few hours. - Reports urinary incontinence described as dribbling and a history of bladder prolapse. - Gastrointestinal: Reports fecal incontinence. - Reports recent abdominal pain after a rich meal. - Reports a history of heartburn. - Eyes: Reports macular degeneration. All systems reviewed & are unremarkable except as noted in HPI and below Physical Exam Vital Signs: Last Vital Signs Pulse 77 02/22/25 09:39 BP 130/61 02/22/25 09:39 Pulse Ox 100 02/22/25 09:39 Oxygen Delivery Method Room Air 02/22/25 09:39 BMI result Body Mass Index 32.9 General: Appears afebrile. Alert and oriented. Mood and affect appropriate. Follows and participates in conversation appropriately. Respiratory effort is unlabored. No cough. Able to transition from sit to stand unassisted. Ambulates with antalgic gait, uses cane with ambulation. General: Yes no CVA tenderness Back/Spine/Pelvis Other: Lumbar flexion and bending reproduces mild to moderate pain. Lumbar extension is intact and does not reproduce pain. Standing straight and mildly extending backwards, relieves low back pain. No midline TTP in cervical, thoracic or lumbar regions, except mild TTP in L5-S1 level. Demonstrates 5/5 strength of quadriceps bilaterally as well as flexion/dorsiflexion of bilateral feet against resistance. 2+ pedal pulses bilaterally. Straight leg rise with dorsiflexion negative bilaterally. Diminished patellar and achilles reflexes bilaterally. Facet loading test negatie bilaterally. Reyna sign, limited Jose?s, Pelvic compression and Stinchfield tests are negative bilaterally. No groin pain with I/E hip rotations. Mild to moderate TTP to lateral right GTB. Valsalva maneuver negative. Back: no CVA tenderness Cervical Spine: cervical ROM normal, No Cervical spine scars present and No Cervical spine tenderness Thoracic/Lumbar Spine: thoracic and lumbar spine normal to inspection, No Thoracic/lumbar spine scar(s), Lasegue's sign negative, straight leg raise negative bilaterally, pain with thoraco-lumbar ROM (flexion), thoraco-lumbar ROM limited, No thoracic spinal tenderness and lumbar spinal tenderness (L5-S1) Sacroiliac joints: bilaterally nontender Extrem General: Yes capillary refill normal, Yes no clubbing, cyanosis or edema and Yes no calf tenderness Results Reviewed Results Reviewed: No imaging results are available for review today. Assessment & Plan Assessment & Plan (1) Chronic low back pain without sciatica: Code(s): M54.50 - Low back pain, unspecified; G89.29 - Other chronic pain Category: Medical (2) Vertebrogenic low back pain: Code(s): M54.51 - Vertebrogenic low back pain Category: Medical (3) Chronic right hip pain: Code(s): M25.551 - Pain in right hip; G89.29 - Other chronic pain Category: Medical (4) Lumbar degenerative disc disease: Code(s): M51.369 - Other intervertebral disc degeneration, lumbar region without mention of lumbar back pain or lower extremity pain Category: Medical (5) Lumbosacral spondylosis: Code(s): M47.817 - Spondylosis without myelopathy or radiculopathy, lumbosacral region Category: Medical Plan The patient's presentation of low back pain is likely secondary to a combination of lumbar spondylosis (arthritis) and discogenic pain and right hip pain most likely to bursitis, rather than sacroiliac joint dysfunction. To further evaluate for underlying bony abnormalities, bone spurs, dislocation, slippage and degenerative disc disease, an X-ray of the lumbar spine and right hip with pelvic view has been ordered. The patient was instructed to complete the X-ray today at the hospital, and a follow-up phone call will be made with the results. For her osteopenia, the importance of consistent calcium and vitamin D supplementation was reinforced to reduce her risk of osteoporotic fractures. Lifestyle modifications, including gentle exercise such as water aerobics, were encouraged to help with her back, knee, and overall conditioning, especially during her upcoming trip to [place]. Medication management will continue with tramadol as needed for pain by her PCP. It was suggested that the patient should consider following up with her analyst geochemical prospecting regarding her bladder prolapse and urinary symptoms. All questions and concerns have been answered and patient agreed with the treatment plan. Follow up for xray results and sooner as needed. Patient was informed and verbally consented to the use of an ambient scribe for clinic note documentation during this visit. Orders: Orders XR hip RT w PEL1V Today G89.29 - Other chronic pain, M25.551 - Pain in right hip XR lumbar spine 6V w bending Today G89.29 - Other chronic pain, M54.50 - Low back pain, unspecified, M54.51 - Vertebrogenic low back pain Medications: Discontinued celecoxib Discontinued Reason: Patient no longer taking 200 mg PO Q24H PRN 30 caps 2RF pain Coding Level of Care Code New Pt Level 4 (64991) Diagnoses Chronic low back pain without sciatica M54.50; G89.29 Vertebrogenic low back pain M54.51 Chronic right hip pain M25.551; G89.29 Lumbar degenerative disc disease M51.369 Lumbosacral spondylosis M47.817
[2025-02-22 09:39] VITALS: BP 130/61; PULSE 77; O2SAT 100; BMI 32.9
== END 2025-02-22 10:08 | disposition home or self-care (01) ==
PROVIDERS: Visit Provider Nurse Practitioner Family
DX: M54.50 Low back pain, unspecified (principal); G89.29 Other chronic pain; M54.51 Vertebrogenic low back pain; M25.551 Pain in right hip; M51.369 Other intervertebral disc degeneration, lumbar region without mention of lumbar back pain or lower extremity pain; M47.817 Spondylosis without myelopathy or radiculopathy, lumbosacral region
CPT/HCPCS: 99204

== ENCOUNTER 2025-02-22 09:32 | Outpatient (REF) | payer MEDICARE, SELFPAY ==
--- NOTE | ~2025-02-22 | XR_ITS ---
EXAMINATION: XR HIP 1 VIEW RIGHT WITH PELVIS HISTORY: M25.551 - Pain in right hip COMPARISON: There are no prior studies available for comparison. FINDINGS: A single AP view of the pelvis and two views of the right hip are submitted. Osseous mineralization is normal. There is no fracture or dislocation. The hip joint space is maintained. There is degenerative change of the symphysis and sacroiliac joints.. The soft tissues are unremarkable. XR/XR hip RT w PEL1V IMPRESSION: No significant abnormality of the right hip. Electronically signed by: Lonny Trevino MD 02/22/2025 11:18 AM [facility]AY[facility]
--- NOTE | ~2025-02-22 | XR_ITS ---
EXAMINATION: XR LUMBOSACRAL SPINE CLINICAL INFORMATION: M54.50 - Low back pain, unspecified COMPARISON: None available. TECHNIQUE: 6 views of the lumbar spine, inclusive of flexion and extension views, were obtained. FINDINGS: There is 30 degrees levoscoliosis involving the thoracolumbar junction. There is moderate to severe atherosclerotic calcification in the aorta. There are 5 non-rib bearing lumbar segments. There is mild loss of height involving T11 superior endplate consistent with age-indeterminate compression fracture. T12-L1: Anterior marginal osteophytes are present. There is atherosclerotic ossification in the disc space. L1-L2: There is mild loss disc height with endplate sclerosis and osteophytes. L2-L3: There is mild loss disc height and small endplate osteophytes. L3-L4: There is mild loss of disc height and endplate osteophytes with sclerosis. L4-L5: There is moderate severe loss of disc height with endplate sclerosis and osteophytes. There is mild facet sclerosis. L5-S1: There is facet sclerosis and osteophytes. The disc space is preserved. XR/XR lumbar spine 6V w bending IMPRESSION: There is no instability during flexion and extension. Mild superior endplate compression fracture of T11, age indeterminate. Moderate levoscoliosis involving the thoracolumbar junction. Multilevel degenerative disc disease and facet arthropathy. Electronically signed by: Barney Rios MD 02/22/2025 11:25 AM N[facility]A
== END 2025-02-22 09:33 | disposition home or self-care (01) ==
LOC: HO.XRAY 09:32
PROVIDERS: Visit Provider Nurse Practitioner Family
DX: M54.51 Vertebrogenic low back pain (principal); M25.551 Pain in right hip; M51.369 Other intervertebral disc degeneration, lumbar region without mention of lumbar back pain or lower extremity pain; M47.817 Spondylosis without myelopathy or radiculopathy, lumbosacral region; G89.29 Other chronic pain
CPT/HCPCS: 72114; 73502; 99202

== ENCOUNTER → 2025-02-22 10:30 | Outpatient (BNV) | payer MEDICARE, SELFPAY | PROVIDERS: Visit Provider Radiology Diagnostic Radiology | DX: M51.360 Other intervertebral disc degeneration, lumbar region with discogenic back pain only (principal); M41.35 Thoracogenic scoliosis, thoracolumbar region; M47.816 Spondylosis without myelopathy or radiculopathy, lumbar region; M25.551 Pain in right hip | CPT/HCPCS: 72114; 73502 ==